=== PATIENT | male | born 1930 | race Caucasian/White ===

== ENCOUNTER 2018-02-27 11:59 | Emergency (ER) | payer OTHER ==
[2018-02-27] MEDS ORDERED: HYDROCODONE/APAP 7.5/325 MG TAB ONE (12:40)
--- NOTE | 2018-02-27 14:34 | EDPHYS ---
Physician Documentation [facility] Name: Yash Mcnulty Age: 87 yrs Sex: Male : 1930 Arrival Date: 02/27/2018 Time: 11:59 Bed 6 Private MD: ED Physician Myles Oviedo HPI: 02/27 14:32 This 87 yrs old Male presents to ER via EMS with complaints of Knee Pain. pm1 14:32 The patient presents with pain, swelling. The complaints affect the right knee. pm1 Context: The problem was sustained at home, resulted from the patient tripping, on a floor edge, the patient can fully bear weight, the patient is able to ambulate, Problem is a result from a previous injury: No. Onset: The symptoms/episode began/occurred last night. Modifying factors: The symptoms are alleviated by nothing. the symptoms are aggravated by weight bearing. Associated signs and symptoms: Pertinent positives: swelling, Pertinent negatives calf tenderness, fever. Treatment prior to arrival includes: no previous treatment. The patient has not experienced similar symptoms in the past. The patient has not recently seen a physician. Patient was walking out the garage and tripped on the edge of the garage. Patient landed on his right knee. No headache, head injury, neck pain. Patient injury happened last night as him and his were going out to dance. Patient was able to go out and danced four dances with his last night. Patient woke up and his right knee was swollen and painful. Historical: - Allergies: 12:02 No Known Allergies; sg - Home Meds: 12:03 levothyroxine 50 mcg oral tab once daily [Active]; amiodarone 200 mg Oral tab 1 tab sv once daily [Active]; Lasix 20 mg Oral tab 1 tab once daily [Active]; galantamine 12 mg Oral tab 1 tab 2 times per day [Active]; Namenda XR 28 mg Oral CSpX 1 cap once daily [Active]; pravastatin 40 mg Oral tab 1 tab once daily [Active]; Hemocyte oral oral [Active]; Xarelto 20 mg oral tab 1 tab once daily [Active]; Centrum Silver oral oral [Active]; vitamin P64-sgrxz acid oral oral [Active]; Ocuvite oral oral [Active]; - PMHx: 12:02 CAD; Atrial Fib; Dementia; Depression; High Cholesterol; Hypothyroidism; sg - PSHx: 12:02 Hernia repair; right ankle surg; sg - Immunization history:: Adult Immunizations up to date, Adult Immunizations up to date. - Social history:: Smoking status: Patient/guardian denies using tobacco, Smoking status: Patient/guardian denies using tobacco. - Ebola Screening: : Patient negative for fever greater than or equal to 101.5 degrees Fahrenheit, and additional compatible Ebola Virus Disease symptoms Patient denies exposure to infectious person Patient denies travel to an Ebola-affected area in the 21 days before illness onset No symptoms or risks identified at this time. ROS: 14:32 Constitutional: Negative for fever, chills, and weight loss, Eyes: Negative for injury, pm1 pain, redness, and discharge, ENT: Negative for injury, pain, and discharge, Neck: Negative for injury, pain, and swelling, Cardiovascular: Negative for chest pain, palpitations, and edema, Respiratory: Negative for shortness of breath, cough, wheezing, and pleuritic chest pain, Abdomen/GI: Negative for abdominal pain, nausea, vomiting, diarrhea, and constipation, Back: Negative for injury and pain, : Negative for injury, bleeding, discharge, and swelling. 14:32 Skin: Negative for injury, rash, and discoloration. 14:32 Neuro: Negative for headache, weakness, numbness, tingling, and seizure. 14:32 MS/extremity: Positive for pain, swelling, of the right knee. Exam: 14:32 Constitutional: This is a well developed, well nourished patient who is awake, alert, pm1 and in no acute distress. Head/Face: Normocephalic, atraumatic. Eyes: Pupils equal round and reactive to light, extra-ocular motions intact. Lids and lashes normal. Conjunctiva and sclera are non-icteric and not injected. Cornea within normal limits. Periorbital areas with no swelling, redness, or edema. ENT: Nares patent. No nasal discharge, no septal abnormalities noted. Tympanic membranes are normal and external auditory canals are clear. Oropharynx with no redness, swelling, or masses, exudates, or evidence of obstruction, uvula midline. Mucous membranes moist. Neck: Trachea midline, no thyromegaly or masses palpated, and no cervical lymphadenopathy. Supple, full range of motion without nuchal rigidity, or vertebral point tenderness. No Meningismus. Chest/axilla: Normal chest wall appearance and motion. Nontender with no deformity. No lesions are appreciated. Cardiovascular: Regular rate and rhythm with a normal S1 and S2. No gallops, murmurs, or rubs. Normal PMI, no JVD. No pulse deficits. Respiratory: Lungs have equal breath sounds bilaterally, clear to auscultation and percussion. No rales, rhonchi or wheezes noted. No increased work of breathing, no retractions or nasal flaring. Abdomen/GI: Soft, non-tender, with normal bowel sounds. No distension or tympany. No guarding or rebound. No evidence of tenderness throughout. Back: No spinal tenderness. No costovertebral tenderness. Full range of motion. Skin: Warm, dry with normal turgor. Normal color with no rashes, no lesions, and no evidence of cellulitis. 14:32 Musculoskeletal/extremity: Extremities: grossly normal except: noted in the right knee: swelling, tenderness, Pulses: are normal with no appreciated deficits. Vital Signs: 12:00 BP 119 / 101; Pulse 84; Resp 16; Temp 98.6; Pulse Ox 95% ; sv 12:58 BP 153 / 86; Pulse 86; Resp 16; Pulse Ox 96% ; sv 13:59 BP 137 / 86; Pulse 80; Resp 18; Pulse Ox 94% ; sv MDM: 12:04 Patient medically screened. pm1 14:32 Data reviewed: vital signs. Counseling: I had a detailed discussion with the patient pm1 and/or guardian regarding: the historical points, exam findings, and any diagnostic results supporting the discharge/admit diagnosis, radiology results, the need for outpatient follow up, a orthopedic surgeon, to return to the emergency department if symptoms worsen or persist or if there are any questions or concerns that arise at home. 02/27 12:11 Order name: Knee Right 3 View XRAY pm1 02/27 12:11 Order name: Ice pack; Complete Time: 12:28 pm1 02/27 14:35 Order name: Del Wrap; Complete Time: 14:52 pm1 Administered Medications: 12:42 Drug: [place] 5 mg-325 mg 1 tabs Route: PO; sg 12:58 Follow up: Response: No adverse reaction sv Disposition: 02/28 12:15 Co-signature as Attending Physician, Myles Oviedo MD I agree with the assessment and josi plan of care. Disposition: 02/27/18 14:33 Discharged to Home. Impression: Pain in right knee, Contusion of right knee. - Condition is Stable. - Discharge Instructions: Knee Pain. - Prescriptions for Tylenol- Codeine #3 300-30 mg Oral Tablet - take 1 tablet by ORAL route every 6 hours As needed; 15 tablet. - Medication Reconciliation Form, Thank You Letter, Prescription Opioid Use form. - Follow up: Emergency Department; When: As needed; Reason: Worsening of condition. Follow up: Garret Chavez MD; When: 5 - 6 days; Reason: Recheck today's complaints, Continuance of care, Re-evaluation by your physician. - Problem is new. - Symptoms have improved. Signatures: Dispatcher [employer] Chantelle Merchant RN RN sv Gay, Steven, RN RN sg Anderson, Corey, MD MD cha Marinas, Patrick, ACCOUNT RECEIVABLE ASSOCIATE ACCOUNT RECEIVABLE ASSOCIATE pm1 Corrections: (The following items were deleted from the chart) 02/27 14:53 14:33 02/27/2018 14:33 Discharged to Home. Impression: Pain in right knee; Contusion of sv right knee. Condition is Stable. Forms are Medication Reconciliation Form, Thank You Letter, Antibiotic Education, Prescription Opioid Use. Follow up: Emergency Department; When: As needed; Reason: Worsening of condition. Follow up: Garret Chavez; When: 5 - 6 days; Reason: Recheck today's complaints, Continuance of care, Re-evaluation by your physician. Problem is new. Symptoms have improved. pm1
--- NOTE | 2018-02-27 14:34 | ER ---
Nurse's Notes [facility] Name: Yash Mcnulty Age: 87 yrs Sex: Male : 1930 Arrival Date: 02/27/2018 Time: 11:59 Bed 6 Private MD: Diagnosis: Pain in right knee;Contusion of right knee Presentation: 02/27 11:59 Presenting complaint: EMS states: pt fell at his home last night after dancing. pt c/o sg R knee pain and skin tear to right elbow, pt denies hitting head, reports falling and able to catch himself but his right knee did hit the ground. Transition of care: patient was not received from another setting of care. Onset of symptoms was February 27, 2018. Risk Assessment: Do you want to hurt yourself or someone else? Patient reports no desire to harm self or others. Initial Sepsis Screen: Does the patient meet any 2 criteria? No. Patient's initial sepsis screen is negative. Does the patient have a suspected source of infection? No. Patient's initial sepsis screen is negative. Care prior to arrival: None. 11:59 Method Of Arrival: EMS: [facility] sg 11:59 Acuity: HAYDE 4 sg Triage Assessment: 12:04 General: Appears in no apparent distress. uncomfortable, slender, Behavior is calm, sv cooperative, appropriate for age. Pain: Complains of pain in right knee Pain currently is 5 out of 10 on a pain scale. Is intermittent. Neuro: Level of Consciousness is awake, alert, obeys commands, Oriented to person, place, time, situation, Moves all extremities. Respiratory: Respiratory effort is even, unlabored, Respiratory pattern is regular, symmetrical. Derm: Skin is pink, warm \T\ dry. Musculoskeletal: Range of motion: intact in all extremities, Swelling present in right knee. Historical: - Allergies: 12:02 No Known Allergies; sg - Home Meds: 12:03 levothyroxine 50 mcg oral tab once daily [Active]; amiodarone 200 mg Oral tab 1 tab sv once daily [Active]; Lasix 20 mg Oral tab 1 tab once daily [Active]; galantamine 12 mg Oral tab 1 tab 2 times per day [Active]; Namenda XR 28 mg Oral CSpX 1 cap once daily [Active]; pravastatin 40 mg Oral tab 1 tab once daily [Active]; Hemocyte oral oral [Active]; Xarelto 20 mg oral tab 1 tab once daily [Active]; Centrum Silver oral oral [Active]; vitamin A74-oegqf acid oral oral [Active]; Ocuvite oral oral [Active]; - PMHx: 12:02 CAD; Atrial Fib; Dementia; Depression; High Cholesterol; Hypothyroidism; sg - PSHx: 12:02 Hernia repair; right ankle surg; sg - Immunization history:: Adult Immunizations up to date, Adult Immunizations up to date. - Social history:: Smoking status: Patient/guardian denies using tobacco, Smoking status: Patient/guardian denies using tobacco. - Ebola Screening: : Patient negative for fever greater than or equal to 101.5 degrees Fahrenheit, and additional compatible Ebola Virus Disease symptoms Patient denies exposure to infectious person Patient denies travel to an Ebola-affected area in the 21 days before illness onset No symptoms or risks identified at this time. Screenin:00 Abuse screen: Denies threats or abuse. Denies injuries from another. Nutritional sv screening: No deficits noted. Tuberculosis screening: No symptoms or risk factors identified. Fall Risk None identified. Assessment: 12:05 Reassessment: Patient appears in no apparent distress at this time. No changes from sv previously documented assessment. 12:58 Reassessment: Patient appears in no apparent distress at this time. No changes from sv previously documented assessment. Patient and/or family updated on plan of care and expected duration. Pain level reassessed. Patient is alert, oriented x 3, equal unlabored respirations, skin warm/dry/pink. 14:53 Reassessment: Patient appears in no apparent distress at this time. No changes from sv previously documented assessment. Patient and/or family updated on plan of care and expected duration. Pain level reassessed. Patient is alert, oriented x 3, equal unlabored respirations, skin warm/dry/pink. Vital Signs: 12:00 BP 119 / 101; Pulse 84; Resp 16; Temp 98.6; Pulse Ox 95% ; sv 12:58 BP 153 / 86; Pulse 86; Resp 16; Pulse Ox 96% ; sv 13:59 BP 137 / 86; Pulse 80; Resp 18; Pulse Ox 94% ; sv ED Course: 11:59 Patient arrived in ED. sg 11:59 Chantelle Hurd, RN is Primary Nurse. sv 12:00 Arm band placed on left wrist. sv 12:00 Patient has correct armband on for positive identification. Bed in low position. Side sv rails up X2. Pulse ox on. NIBP on. Door closed. Head of bed elevated. 12:01 Triage completed. sg 12:02 Lev Rudolph NP is PHCP. pm1 12:02 Myles Oviedo MD is Attending Physician. pm1 13:13 Knee Right 3 View XRAY In Process Unspecified. EDMS 14:33 Garret Chavez MD is Referral Physician. pm1 14:50 Del wrap to right knee. sv 14:52 No provider procedures requiring assistance completed. Patient did not have IV access sv during this emergency room visit. Administered Medications: 12:42 Drug: [place] 5 mg-325 mg 1 tabs Route: PO; sg 12:58 Follow up: Response: No adverse reaction sv Outcome: 14:33 Discharge ordered by MD. pm1 14:53 Discharged to home via wheelchair, with family. sv 14:53 Condition: stable 14:53 Discharge instructions given to patient, family, Instructed on discharge instructions, follow up and referral plans. medication usage, Demonstrated understanding of instructions, follow-up care, medications, Prescriptions given X 1. 14:53 Patient left the ED. sv Signatures: Dispatcher [employer] EDND Chantelle Hurd RN RN sv Gay, Steven, RN RN Lev Rudolph NP HOME DELIVERY DRIVER pm1 Corrections: (The following items were deleted from the chart) 12:07 12:00 Pulse 84bpm; Resp 16bpm; Pulse Ox 95%; Temp 98.6F; sv sv
[2018-02-27 15:31] VITALS: TEMP 98.6
[2018-02-27 15:33] VITALS: BP 137/86; O2SAT 94
--- NOTE | 2018-02-28 12:47 | RAD REPORT ---
EXAM DESCRIPTION: RAD - Knee Right 3 View - 02/27/2018 11:29 pm CLINICAL HISTORY: Knee pain and swelling COMPARISON: April 2016 FINDINGS: No fracture, dislocation or periosteal reaction.Small a moderate joint effusion is present . Slight depression of the medial tibial plateau is suspected to be from old trauma. Comparison views are quite equivalent. There is remodeling in the proximal tibia metaphysis that is probably old trau ma change. This is stable. No foreign body or other soft tissue abnormality. IMPRESSION: No gross fracture deformity seen. Joint fluid is present and there is slight depression of the medial tibial plateau. Plateau finding i s suspected to be chronic. Correlation is needed with mechanism of injury and symptom pattern. Follow-up MR imaging could be uti lized to assess for tibial plateau fracture or other occult bone process.
== END 2018-02-27 14:53 | disposition home or self-care (01) ==
LOC: ER 11:59
DX: S80.01XA Contusion of right knee, initial encounter (principal); W01.0XXA Fall on same level from slipping, tripping and stumbling without subsequent striking against object, initial encounter; Y93.41 Activity, dancing; Y92.019 Unspecified place in single-family (private) house as the place of occurrence of the external cause; F03.90 Unspecified dementia, unspecified severity, without behavioral disturbance, psychotic disturbance, mood disturbance, and anxiety; F41.9 Anxiety disorder, unspecified; F32.9 Major depressive disorder, single episode, unspecified; E03.9 Hypothyroidism, unspecified; E78.00 Pure hypercholesterolemia, unspecified; I25.10 Atherosclerotic heart disease of native coronary artery without angina pectoris
CPT/HCPCS: 99284

== ENCOUNTER 2019-04-05 16:22 | Inpatient (IN) | payer OTHER ==
[2019-04-05] MEDS ORDERED: LEVALBUTEROL 1.25 MG/3 ML NEB ONE (17:09)
--- NOTE | 2019-04-05 17:41 | EKG ---
Test Date: 2019-04-05 Test Time: 16:34:12 Machine Tool Operator: MICHELET MEASUREMENT RESULTS: Intervals: Rate: 87 IN: QRSD: 94 QT: 400 QTc: 481 [place]: P: IN: QRS: 9 T: 77 INTERPRETIVE STATEMENTS: Atrial fibrillation Nonspecific ST and T wave abnormality Prolonged QT Abnormal ECG Compared to ECG 04/06/2016 05:38:06 ST (T wave) deviation now present Left-axis deviation no longer present Electronically Signed On 04-05-19 17:41:11 CDT by Jose Dawkins
[2019-04-05 17:43] LABS: Basophils % 0.4 % (0-1.3); Hematocrit 38.8 % (39.6-49.0); Lymphocytes % 15.5 % (15.3-44.8); MPV 10.4 fL (7.6-11.3); RBC Red Blood Cell Count 4.38 M/uL (4.33-5.43)
[2019-04-05 17:44] LABS: Protime INR 1.35
--- NOTE | 2019-04-05 17:56 | RAD REPORT ---
EXAM DESCRIPTION: RAD - Chest Single View - 04/05/2019 5:46 pm CLINICAL HISTORY: SOB Chest pain. COMPARISON: Chest Single View dated 04/06/2016; Chest Single View dated 04/05/2016; CHEST SINGLE VIE W dated 05/20/2015; CHEST SINGLE VIEW dated 05/25/2014 FINDINGS: Portable technique limits examination quality. Moderate opacity is present in the right lung base likely a combination of pneumonia and pleural flui d. Mild interstitial pulmonary edema is present. The heart is moderately enlarged. No displaced fract ures.
[2019-04-05 18:05] LABS: Albumin 3.4 g/dL (3.4-5.0); Bilirubin Direct 0.3 mg/dL (0-0.2); Magnesium 2.4 mg/dL (1.8-2.4); Protein, Total 7.1 g/dL (6.4-8.2); Troponin (Emerg Dept Use Only) 0.03 ng/mL (0.0-0.045)
--- NOTE | 2019-04-05 18:22 | EDPHYS ---
Physician Documentation [facility] Name: Yash Mcnulty Age: 88 yrs Sex: Male : 1930 Arrival Date: 04/05/2019 Time: 16:30 Bed 16 Private MD: ED Physician Myles Oivedo HPI: 04/05 16:57 This 88 yrs old Male presents to ER via EMS with complaints of High Blood cp Pressure, Hypoxia. 17:00 The patient has shortness of breath at rest. Onset: The symptoms/episode began/occurred cp today. 17:00 Duration: The symptoms are continuous, but are steadily getting better. Associated cp signs and symptoms: Pertinent positives: elevated blood pressure, Pertinent negatives: chest pain, productive cough, diaphoresis, fever. Severity of symptoms: in the emergency department the symptoms have improved mildly. Historical: - Allergies: 16:30 No Known Allergies; rb1 - Home Meds: 16:30 Centrum Silver Oral [Active]; galantamine 12 mg Oral tab 1 tab 2 times per day rb1 [Active]; Hemocyte Oral [Active]; Lasix 20 mg Oral tab 1 tab once daily [Active]; Namenda XR 28 mg Oral CSpX 1 cap once daily [Active]; Ocuvite Oral [Active]; vitamin P32-rmrgk acid Oral [Active]; Xarelto 20 mg Oral tab 1 tab once daily [Active]; 16:30 levothyroxine 75 mcg oral tab [Active]; pravastatin 80 mg oral tab [Active]; metoprolol rb1 tartrate 25 mg Oral tab 1 tab 2 times per day [Active]; - PMHx: 16:30 Atrial Fib; CAD; Dementia; Depression; High Cholesterol; Hypothyroidism; rb1 - PSHx: 16:30 Hernia repair; right ankle surg; rb1 - Immunization history:: Adult Immunizations up to date. - Social history:: Smoking status: Patient/guardian denies using tobacco. - Ebola Screening: : Patient negative for fever greater than or equal to 101.5 degrees Fahrenheit, and additional compatible Ebola Virus Disease symptoms. ROS: 17:05 Constitutional: Negative for body aches, chills, fever, poor PO intake. cp 17:05 Eyes: Negative for injury, pain, redness, and discharge. cp 17:05 ENT: Negative for drainage from ear(s), ear pain, sore throat, difficulty swallowing, difficulty handling secretions. 17:05 Cardiovascular: Negative for chest pain, edema, palpitations. 17:05 Respiratory: Positive for shortness of breath, at rest. Negative for cough, wheezing. 17:05 Abdomen/GI: Negative for abdominal pain, vomiting, diarrhea, constipation, black/tarry stool, rectal bleeding. 17:05 Back: Negative for pain at rest, pain with movement. 17:05 Skin: Negative for rash. 17:05 Neuro: Negative for altered mental status, headache, weakness. 17:05 All other systems are negative. Exam: 16:55 ECG was reviewed by the Attending Physician. cp 17:10 Constitutional: The patient appears in no acute distress, alert, awake, cp non-diaphoretic, well developed, well nourished. 17:10 Head/Face: Normocephalic, atraumatic. cp 17:10 Eyes: Periorbital structures: appear normal, Pupils: equal, round, and reactive to cp light and accomodation, Extraocular movements: intact throughout, Conjunctiva: normal, no exudate, no injection, Sclera: no appreciated abnormality, Lids and lashes: appear normal, bilaterally. 17:10 ENT: External ear(s): are unremarkable, Ear canal(s): are normal, clear, TM's: are normal, no evidence of bulging, no erythema, Nose: is normal, Mouth: Lips: moist, Oral mucosa: pink and intact, moist, Posterior pharynx: is normal, airway is patent, no erythema, no exudate. 17:10 Neck: ROM/movement: is normal, is supple, without pain, no range of motions limitations, no meningismus, no nuchal rigidity. 17:10 Chest/axilla: Inspection: normal, Palpation: is normal, no crepitus, no tenderness. 17:10 Cardiovascular: Rate: tachycardic, Rhythm: irregularly irregular, Edema: is not appreciated, JVD: is not appreciated. 17:10 Respiratory: the patient does not display signs of respiratory distress, Respirations: normal, no use of accessory muscles, no retractions, no splinting, no tachypnea, Breath sounds: decreased breath sounds, that are mild, are located in both bases, stridor, is not appreciated. 17:10 Abdomen/GI: Inspection: abdomen appears normal, Bowel sounds: active, all quadrants, Palpation: abdomen is soft and non-tender, in all quadrants, rebound tenderness, is not appreciated, voluntary guarding, is not appreciated. 17:10 Back: pain, is absent. 17:10 Skin: no rash present. 17:10 Neuro: Orientation: to person, situation, Mentation: is normal, Cerebellar function: is grossly normal, Motor: moves all fours, strength is normal, Sensation: is normal. Vital Signs: 16:30 BP 180 / 90; Pulse 100; Resp 19; Temp 97.0(TE); Pulse Ox 95% on 2 lpm NC; Weight 77.11 rb1 kg (R); Height 6 ft. 2 in. (187.96 cm) (R); Pain 0/10; 17:30 BP 159 / 100; Pulse 89; Resp 18; Pulse Ox 100% on R/A; Pain 0/10; rb1 18:27 BP 159 / 104; Pulse 110; Resp 24; Pulse Ox 99% on 2 lpm NC; rb1 19:29 BP 154 / 109; Pulse 116; Resp 20 S; Pulse Ox 94% on 2 lpm NC; jd3 20:55 BP 139 / 91; Pulse 101; Resp 20 S; Pulse Ox 94% on 2 lpm NC; Pain 0/10; jd3 16:30 Body Mass Index 21.83 (77.11 kg, 187.96 cm) rb1 MDM: 16:44 Patient medically screened. josi 18:19 Physician consultation: A Jessy BARNEY was contacted at 18:15, regarding admission, to the telemetry unit. patient's condition, in the emergency department to see patient at 18:20. 18:20 Data reviewed: vital signs, nurses notes, lab test result(s), EKG, radiologic studies, cp plain films. 18:20 Differential diagnosis: Bronchitis CHF exacerbation, Chronic Obstructive Pulmonary cp Disease Myocardial Infarction pneumonia, Pneumothorax Sepsis. Antibiotic administration: Zosyn. Test interpretation: by ED physician or midlevel provider: ECG, plain radiologic studies. 04/05 16:55 Order name: Basic Metabolic Panel; Complete Time: 18:10 cp 04/05 18:11 Interpretation: Normal except: CL 109; BUN 21; GFR 63. 04/05 16:55 Order name: CBC with Diff; Complete Time: 17:59 cp 04/05 17:59 Interpretation: Normal except: HGB 13.1; HCT 38.8; MCV 88.6; MCH 29.9; RANDY% 75.0. 04/05 16:55 Order name: LFT's; Complete Time: 18:10 04/05 18:11 Interpretation: Normal except: ALK 151; BILID 0.3; GLOB 3.7; A/G 0.9. 04/05 16:55 Order name: Magnesium; Complete Time: 18:10 04/05 16:55 Order name: NT PRO-BNP; Complete Time: 18:10 04/05 18:11 Interpretation: Within normal limits: NT PRO-BNP 9061. 04/05 16:55 Order name: PT-INR; Complete Time: 17:59 04/05 16:55 Order name: Troponin (emerg Dept Use Only); Complete Time: 18:10 04/05 16:55 Order name: Influenza Screen (a \T\ B); Complete Time: 18:10 04/05 18:11 Interpretation: Reviewed. 04/05 16:55 Order name: Urine Microscopic Only 04/05 18:29 Order name: Basic Metabolic Panel EDMS 04/05 18:29 Order name: Basic Metabolic Panel EDMS 04/05 18:29 Order name: CBC with Automated Diff EDMS 04/05 18:29 Order name: CBC with Automated Diff EDMS 04/05 18:29 Order name: NT PRO-BNP EDMS 04/05 16:55 Order name: XRAY Chest (1 view); Complete Time: 17:59 04/05 16:55 Order name: EKG; Complete Time: 16:56 04/05 16:55 Order name: Cardiac monitoring; Complete Time: 17:07 04/05 16:55 Order name: EKG - Nurse/Tech; Complete Time: 17:07 04/05 16:55 Order name: IV Saline Lock; Complete Time: 17:31 04/05 16:55 Order name: Labs collected and sent; Complete Time: 17:31 04/05 18:29 Order name: Regular EDMS 04/05 18:29 Order name: NT PRO-BNP EDMS 04/05 18:29 Order name: Troponin I EDMS 04/05 18:29 Order name: Troponin I EDMS 04/05 18:29 Order name: Troponin I EDMS 04/05 20:16 Order name: Urine Dipstick--Ancillary (enter results) ds4 04/05 20:40 Order name: Urine Dipstick-Ancillary EDMS 04/05 16:55 Order name: O2 Per Protocol; Complete Time: 17:07 cp 04/05 16:55 Order name: O2 Sat Monitoring; Complete Time: 17:07 cp 04/05 16:55 Order name: Urine Dipstick-Ancillary (obtain specimen); Complete Time: 20:15 cp EC:55 Rate is 87 beats/min. Rhythm is irregularly irregular. QRS interval is normal. QT cp interval is normal. T waves are Inverted in lead aVL. Interpreted by me. Reviewed by me. Administered Medications: 17:25 Drug: Xopenex (3) 1.25 mg Route: Inhalation; rb1 18:42 Drug: Lasix 20 mg Route: IVP; Site: left antecubital; tw2 18:50 Follow up: Response: No adverse reaction tw2 18:49 Drug: Zosyn 3.375 grams Route: IVPB; Infused Over: 60 mins; Site: left antecubital; tw2 20:58 Follow up: Response: No adverse reaction; IV Status: Completed infusion jd3 Disposition: 04/06 06:58 Co-signature as Attending Physician, Myles Oviedo MD I agree with the assessment and [facility] plan of care. Disposition: 04/05/19 18:21 Hospitalization ordered by Rayray Jiménez for Inpatient Admission. Preliminary diagnosis are Pneumonia due to other specified bacteria, Pulmonary edema. - Bed requested for Telemetry/MedSurg (Inpatient). - Status is Inpatient Admission. jd3 - Condition is Stable. - Problem is new. - Symptoms have improved. UTI on Admission? No Signatures: Dispatcher [employer] EDMS Gemma Frost Corey, MD MD cha Page, Corey, PA PA cp Jessica Baeza, RN RN rb1 Merry Ha RN RN tw2 Blu Lin RN RN jd3 Corrections: (The following items were deleted from the chart) 04/05 18: 16:30 Allergies: No Known Allergies; rb1 rb1 18: 16:30 Home Meds: amiodarone 200 mg Oral tab 1 tab once daily; rb1 rb1 18: 16:30 Home Meds: Aspir-81 81 mg Oral TbEC 1 tab once daily; rb1 rb1 18: 16:30 Home Meds: levothyroxine 50 mcg tab once daily; rb1 rb1 18 16:30 Home Meds: pravastatin 40 mg Oral tab 1 tab once daily; rb1 rb1 18 16:30 Home Meds: sertraline 100 mg Oral tab 1 tab once daily; rb1 rb1 18:44 18:21 Hospitalization Ordered by A Jessy BARNEY for Inpatient Admission. Preliminary bd diagnosis is Pneumonia due to other specified bacteria; Pulmonary edema. Bed requested for Telemetry/MedSurg (Inpatient). Status is Inpatient Admission. Condition is Stable. Problem is new. Symptoms have improved. UTI on Admission? No. cp 21:36 18:44 04/05/2019 18:21 Hospitalization Ordered by A Jessy BARNEY for Inpatient Admission. jd3 Preliminary diagnosis is Pneumonia due to other specified bacteria; Pulmonary edema. Bed requested for Telemetry/MedSurg (Inpatient). Status is Inpatient Admission. Condition is Stable. Problem is new. Symptoms have improved. UTI on Admission? No. bd
--- NOTE | 2019-04-05 18:22 | ER ---
Nurse's Notes [facility] Name: Yash Mcnulty Age: 88 yrs Sex: Male : 1930 Arrival Date: 04/05/2019 Time: 16:30 Bed 16 Private MD: Diagnosis: Pneumonia due to other specified bacteria;Pulmonary edema Presentation: 04/05 16:30 Presenting complaint: EMS states: Pt. is A \T\ O x 4, c/o hypertension. Hypoxic on RA rb1 90%, 2 L NC 97-98%. Difficulty breathing last night. held thyroid medication today. 12-Lead showed abnormal wandering baseline, has history of A-Fib. Denies pain. S1S2 are heard, radial pulses are strong. BS 101. Transition of care: patient was not received from another setting of care. Onset of symptoms was April 04, 2019. Risk Assessment: Do you want to hurt yourself or someone else? Patient reports no desire to harm self or others. Initial Sepsis Screen: Does the patient meet any 2 criteria? No. Patient's initial sepsis screen is negative. Does the patient have a suspected source of infection? No. Patient's initial sepsis screen is negative. Care prior to arrival: None. 16:30 Method Of Arrival: EMS: [facility] rb1 16:30 Acuity: HAYDE 3 rb1 Triage Assessment: 16:30 General: Appears in no apparent distress. comfortable, Behavior is calm, cooperative, rb1 Denies fever, feeling ill. Pain: Denies pain. Neuro: Level of Consciousness is awake, alert, obeys commands, Oriented to person, place, time, situation. Cardiovascular: Capillary refill < 3 seconds is brisk in bilateral fingers. Respiratory: Reports shortness of breath since yesterday Airway is patent Respiratory effort is even, unlabored, Respiratory pattern is regular, symmetrical. Respiratory: Denies cough. GI: No signs and/or symptoms were reported involving the gastrointestinal system. : No signs and/or symptoms were reported regarding the genitourinary system. Derm: Skin is pink, warm \T\ dry. Historical: - Allergies: 16:30 No Known Allergies; rb1 - Home Meds: 16:30 Centrum Silver Oral [Active]; galantamine 12 mg Oral tab 1 tab 2 times per day rb1 [Active]; Hemocyte Oral [Active]; Lasix 20 mg Oral tab 1 tab once daily [Active]; Namenda XR 28 mg Oral CSpX 1 cap once daily [Active]; Ocuvite Oral [Active]; vitamin X85-jvufg acid Oral [Active]; Xarelto 20 mg Oral tab 1 tab once daily [Active]; 16:30 levothyroxine 75 mcg oral tab [Active]; pravastatin 80 mg oral tab [Active]; metoprolol rb1 tartrate 25 mg Oral tab 1 tab 2 times per day [Active]; - PMHx: 16:30 Atrial Fib; CAD; Dementia; Depression; High Cholesterol; Hypothyroidism; rb1 - PSHx: 16:30 Hernia repair; right ankle surg; rb1 - Immunization history:: Adult Immunizations up to date. - Social history:: Smoking status: Patient/guardian denies using tobacco. - Ebola Screening: : Patient negative for fever greater than or equal to 101.5 degrees Fahrenheit, and additional compatible Ebola Virus Disease symptoms. Screenin:30 Abuse screen: Denies threats or abuse. Nutritional screening: No deficits noted. rb1 Tuberculosis screening: No symptoms or risk factors identified. Fall Risk None identified. Assessment: 16:30 General: See triage assessment. rb1 17:30 Reassessment: Patient appears in no apparent distress at this time. No changes from rb1 previously documented assessment. 18:28 Reassessment: Patient appears in no apparent distress at this time. Patient and/or rb1 family updated on plan of care and expected duration. Pain level reassessed. Patient is alert, oriented x 3, equal unlabored respirations, skin warm/dry/pink. Patient denies pain at this time. 19:30 General: Appears in no apparent distress. comfortable, Behavior is calm, cooperative, jd3 appropriate for age. Pain: Denies pain. Neuro: Level of Consciousness is awake, alert, obeys commands, Oriented to person, place, time, situation. Cardiovascular: Capillary refill < 3 seconds Patient's skin is warm and dry. Respiratory: Airway is patent Respiratory effort is even, unlabored, Respiratory pattern is regular, symmetrical. GI: No signs and/or symptoms were reported involving the gastrointestinal system. : No signs and/or symptoms were reported regarding the genitourinary system. EENT: No signs and/or symptoms were reported regarding the EENT system. Derm: Skin is intact, Skin is dry, Skin is normal, Skin temperature is warm. Musculoskeletal: Circulation, motion, and sensation intact. Range of motion: intact in all extremities. 20:54 Reassessment: Patient appears in no apparent distress at this time. Patient and/or jd3 family updated on plan of care and expected duration. Pain level reassessed. Patient is alert, oriented x 3, equal unlabored respirations, skin warm/dry/pink. report given to Mai CODY. Vital Signs: 16:30 BP 180 / 90; Pulse 100; Resp 19; Temp 97.0(TE); Pulse Ox 95% on 2 lpm NC; Weight 77.11 rb1 kg (R); Height 6 ft. 2 in. (187.96 cm) (R); Pain 0/10; 17:30 BP 159 / 100; Pulse 89; Resp 18; Pulse Ox 100% on R/A; Pain 0/10; rb1 18:27 BP 159 / 104; Pulse 110; Resp 24; Pulse Ox 99% on 2 lpm NC; rb1 19:29 BP 154 / 109; Pulse 116; Resp 20 S; Pulse Ox 94% on 2 lpm NC; jd3 20:55 BP 139 / 91; Pulse 101; Resp 20 S; Pulse Ox 94% on 2 lpm NC; Pain 0/10; jd3 16:30 Body Mass Index 21.83 (77.11 kg, 187.96 cm) rb1 ED Course: 16:30 Patient arrived in ED. rb1 16:30 Arm band placed on left wrist. rb1 16:30 Patient has correct armband on for positive identification. Bed in low position. Call rb1 light in reach. Side rails up X2. youth nutritional monitor on. Pulse ox on. NIBP on. Warm blanket given. 16:34 Triage completed. rb1 16:42 EKG done, by lead neurodiagnostic technologist. reviewed by Myles Oviedo MD. sm3 16:44 Myles Adame PA is PHCP. cp 16:44 Myles Oviedo MD is Attending Physician. cp 17:06 Jessica Baeza, GLO is Primary Nurse. rb1 17:30 Inserted saline lock: 22 gauge in left antecubital area, using aseptic technique. Blood rb1 collected. 17:31 Influenza Screen (a \T\ B) Sent. rb1 17:45 XRAY Chest (1 view) In Process Unspecified. EDMS 18:20 Rayray Jiménez MD is Hospitalizing Provider. cp 19:00 Report given to GLO Bowman. rb1 19:12 Troponin I Sent. ds4 19:12 Troponin I Sent. ds4 20:15 Urine Microscopic Only Sent. ds4 20:28 Primary Nurse role handed off by Jessica Baeza, GLO jd3 20:28 Blu Lin, RN is Primary Nurse. jd3 20:56 No provider procedures requiring assistance completed. Patient admitted, IV remains in jd3 place. Administered Medications: 17:25 Drug: Xopenex (3) 1.25 mg Route: Inhalation; rb1 18:42 Drug: Lasix 20 mg Route: IVP; Site: left antecubital; tw2 18:50 Follow up: Response: No adverse reaction tw2 18:49 Drug: Zosyn 3.375 grams Route: IVPB; Infused Over: 60 mins; Site: left antecubital; tw2 20:58 Follow up: Response: No adverse reaction; IV Status: Completed infusion jd3 Outcome: 18:21 Decision to Hospitalize by Provider. cp 20:56 Admitted to Tele accompanied by tech, via stretcher, room 209, with oxygen, with chart, jd3 Report called to Mai CODY 20:56 Condition: stable 20:56 Instructed on the need for admit, Demonstrated understanding of instructions. 21:36 Patient left the ED. jd3 Signatures: Dispatcher [employer] EDMS Antonio Guo ds4 Myles Adame PA PA cp Jessica Baeza, RN RN rb1 Merry Ha RN RN tw2 Blu Lin RN RN jd3 Phoebe Arias 3 Corrections: (The following items were deleted from the chart) 18: 16:30 Allergies: No Known Allergies; rb1 rb1 18: 16:30 Home Meds: amiodarone 200 mg Oral tab 1 tab once daily; rb1 rb1 18: 16:30 Home Meds: Aspir-81 81 mg Oral TbEC 1 tab once daily; rb1 rb1 18: 16:30 Home Meds: levothyroxine 50 mcg tab once daily; rb1 rb1 18: 16:30 Home Meds: pravastatin 40 mg Oral tab 1 tab once daily; rb1 rb1 18: 16:30 Home Meds: sertraline 100 mg Oral tab 1 tab once daily; rb1 rb1
[2019-04-05] MEDS ORDERED: ONDANSETRON 4 MG/2 ML VIAL IV PRN (18:26)
[2019-04-05] MEDS ORDERED: ACETAMINOPHEN 500 MG TAB PO PRN (18:26)
[2019-04-05] MEDS ORDERED: PIPER/TAZO/NS 3.375gm 3.375 GM/100 ML BAG ONE (18:34)
[2019-04-05] MEDS ORDERED: FUROSEMIDE 20 MG/ 2ML VIAL ONE (18:34)
[2019-04-05] MEDS: ALBUTEROL 2.5 MG/3 ML NEB SOL NEB SCH (20:00)
[2019-04-05 20:40] LABS: Urine Bacteria <20 /HPF (NONE SEEN); Urine Culture Reflex Order NOT NEEDED; Urine RBC <5 /HPF (NONE SEEN)
[2019-04-05 20:40] LABS: Urine Blood NEGATIVE (NEG); Urine Glucose NEGATIVE (NEG); Urine Protein NEGATIVE (NEG)
[2019-04-05] MEDS: METOPROLOL XL 25 MG TAB PO SCH (21:00)
[2019-04-05 22:08] VITALS: BMI 21.5
[2019-04-06] MEDS ORDERED: PIPER/TAZO/NS 3.375gm 3.375 GM/100 ML BAG IVPB SCH (01:00)
[2019-04-06] MEDS ORDERED: PIPERACIL/TAZO 3.375 GM VIAL IV ONE (01:06)
[2019-04-06] MEDS ORDERED: NA CHLORIDE 0.9% 100 ML ONE (01:10)
[2019-04-06] MEDS: PIPER/TAZO/NS 3.375gm 3.375 GM/100 ML BAG IVPB SCH ×3 (01:45→16:22)
[2019-04-06] MEDS: ALBUTEROL 2.5 MG/3 ML NEB SOL NEB SCH ×4 (02:00→19:55)
[2019-04-06 05:40] LABS: Absolute Lymphocytes (CBC) 0.9 K/uL (0.7-4.9); Basophils % 0.6 % (0-1.3); Hematocrit 33.2 % (39.6-49.0); Lymphocytes % 18.6 % (15.3-44.8); MPV 10.2 fL (7.6-11.3); RBC Red Blood Cell Count 3.77 M/uL (4.33-5.43)
[2019-04-06 06:05] LABS: Potassium 3.4 mmol/L (3.5-5.1)
[2019-04-06] MEDS ORDERED: POTASSIUM CL SA 10 MEQ TAB PO ONE (07:15)
[2019-04-06] MEDS: METOPROLOL XL 25 MG TAB PO SCH (09:00)
[2019-04-06] MEDS ORDERED: AMIODARONE HCL 200 MG TAB PO SCH (09:00)
[2019-04-06] MEDS ORDERED: OCUVITE (VIT A,C & E/LUTEIN/MINERAL) TABLET PO SCH (09:00)
[2019-04-06] MEDS ORDERED: MULTIVIT W/ MINERAL TAB PO SCH (09:00)
[2019-04-06] MEDS ORDERED: CYANOCOBALAMIN 1,000 MCG TAB PO SCH (09:00)
[2019-04-06] MEDS ORDERED: HOME MED 1 EA UNK (Galantamine Hbr [Galantamine Er] 12 MG) PO SCH (09:00)
[2019-04-06] MEDS ORDERED: FUROSEMIDE 20 MG TABLET PO SCH (09:00)
[2019-04-06] MEDS ORDERED: HOME MED 1 EA UNK (Memantine Hcl [Namenda Xr] 28 MG) PO SCH (09:00)
--- NOTE | 2019-04-06 11:06 | RAD REPORT ---
EXAM DESCRIPTION: RAD - Barium Swallow Modified - 04/06/2019 10:59 am CLINICAL HISTORY: swallowing evaluation Dysphagia COMPARISON: SMALL BOWEL SERIES dated 10/20/2012 TECHNIQUE: The patient was given liquid, semi-solid and solid forms of barium. Lateral view fluorosc opic imaging was performed in conjunction with speech pathology service. FINDINGS: Laryngeal penetration: cleared with thin Pharyngeal residue: moderate to severe in the vallecular with hosea cracker. mild in the pyriform w ith all consistencies. minimal in the posterior wall with nectar. Moderate to severe esophageal retention (60+ seconds) and retropulsion with barium and thin liquid, c leared with second sip of thin. Prominence of cricopharyingeus muscle. Esophageal narrowing / stric ture in lower half. Total fluoroscopy time: 4 minutes and 7 seconds
[2019-04-06] MEDS: XARELTO 20 MG PO SCH (16:23)
[2019-04-06] MEDS ORDERED: RIVAROXABAN 20 MG TABLET PO SCH (17:00)
[2019-04-06] MEDS ORDERED: RIVAROXABAN 10 MG TABLET PO SCH (17:00)
[2019-04-06] MEDS: METOPROLOL TARTRATE 25 MG PO SCH (21:00)
[2019-04-06] MEDS: ATORVASTATIN 10 MG TAB PO SCH (21:00)
[2019-04-06] MEDS: HYDROCORTISONE ACETATE 25MG SUPP PR PRN (21:52)
[2019-04-07] MEDS: PIPER/TAZO/NS 3.375gm 3.375 GM/100 ML BAG IVPB SCH ×3 (00:22→16:46)
[2019-04-07] MEDS: ALBUTEROL 2.5 MG/3 ML NEB SOL NEB SCH ×4 (01:20→20:00)
--- NOTE | 2019-04-07 01:31 | PN ---
Date of Progress Note: 04/06/2019 Subjective: Patient was seen this morning for followup. No new complaints or problems reported by layne shabazz. He was lying in bed, not in distress. was present with him at bedside. Objective: HEENT: Unremarkable. Lungs: Clear to auscultation except diminished air entry with some rales in right lower lobe, unchan ged from yesterday. Not using accessory muscles of respiration. Heart: Sounds normal. Abdomen: Soft. Bowel sounds normal. No guarding, rigidity, tenderness, or distention. Extremities: No leg edema. Laboratory Data: Sodium 144, potassium 3.4, chloride 110, bicarb 29, BUN 21, creatinine 1.20, glucos e 79. White count 5, hemoglobin 11.4, platelets 152. Impression: 1.Pneumonia. 2.Anemia. 3.Right-sided pleural effusion. 4.Senile dementia. 5.Hypokalemia. Plan: We will go ahead and continue current antibiotics. Follow up with speech therapy. Physical t herapy to help ambulate the patient. Continue home medications and I will see him tomorrow for gerald sánchez. CARMINE/MODL Voice ID: [id number] Report ID: [id number]
--- NOTE | 2019-04-07 05:11 | HP ---
Date of Admission: 04/05/2019 Chief Complaint: Fever, shortness of breath, cough. 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 He was breathing shallow. He was brought to the emergency room. After he was evaluated in the ER, he was found to have pneumonia with pleural effusion in his right lower lobe ar ea. The patient was admitted to the hospital. I saw him in emergency room for this admission. He i s not coughing up any mucus. Allergies: NO KNOWN ALLERGIES. Medications: List reviewed. Review of Systems: Constitutional: As mentioned above. Respiratory: As mentioned. Above all other systems reviewed and negative. Past Surgical History: TURP, hernia repair, back surgery, and lumpectomy. Family History: Not pertinent. Social History: Negative for smoking and alcohol use. 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 Physical Examination: VITAL SIGNS: Temperature 97, pulse 100, respiratory rate 19, blood pressure 180/90, oxygen saturatio n 95% on 2 L nasal cannula oxygen. Height 6 feet 2 inches, weight 168 pounds. General: The patient is awake, alert, not in any distress, not oriented. HEENT: Head atraumatic, normocephalic. Conjunctivae nonerythematous. Sclerae white. Mouth, no thr ush or edema noted. Ears/Nose, no mass, lesion, discharge noted. Neck: Supple. No JVD, lymph nodes, bruit, thyromegaly noted. Lungs: Diminished air entry in the right lower lung field with some presence of rales. Heart: Normal heart sounds, no murmur or gallop. Abdomen: Soft, bowel sounds normal. No guarding, rigidity, tenderness, mass, hepatosplenomegaly, dis tention, or bruit noted. Extremities: No leg edema. No calf tenderness. Skin: No rash, ulcer, cellulitis. Lymphatics: No lymph node enlargement in neck, supraclavicular, infraclavicular region. Neuro: No focal neurological deficit. Chest: Unremarkable. External Genitalia: Deferred. Rectal: Deferred. Laboratory Data: White count 6.6, hemoglobin 13.1, platelets 171. Sodium 142, potassium 4, chloride 109, bicarb 27, BUN 21, creatinine 1.11, glucose 91. Liver function tests are unremarkable. Tropon in 0.03. ProBNP 9061. Urinalysis negative. Influenza A and B test negative. Chest x-ray, moderate amount of opacity in the right lung base, combination of pneumonia and pleural effusion noted. Hear t is moderately enlarged. Impression: 1.Pneumonia, rule out aspiration pneumonia. 2.Pleural effusion. 3.Paroxysmal atrial fibrillation. 4.Chronic anticoagulation therapy. 5.Hypertension. 6.Hyperlipidemia. 7.Senile dementia. 8.Hypothyroidism. 9.Allergic rhinitis. 10.Diverticulosis. 11.Anemia, unspecified. Plan: Admit the patient to hospital for further evaluation and management of this problem. The [facility] ent is appropriate for inpatient and is expected to spend 2 midnights in hospital. We will go ahead and continue home medications, give IV antibiotic, which is Zosyn. We will get a Speech Therapy's co nsultation and order modified barium swallow to evaluate his swallowing. We will consult [facility] santiago to help ambulate the patient. I will see him tomorrow for followup. Details of plan of treatm ent discussed with the patient and patient's . CARMINE/MODL Voice ID: [id number]
[2019-04-07] MEDS ORDERED: LEVOTHYROXINE SOD 0.075 MG TAB PO SCH (06:00)
[2019-04-07] MEDS: LEVOTHYROXINE 75 MCG PO SCH (06:18)
[2019-04-07] MEDS: [UNRECOGNIZED DRUG - OTHER] PO SCH (09:00)
[2019-04-07] MEDS: VITAMIN B12 1000 MCG PO SCH (09:00)
[2019-04-07] MEDS: CENTRUM SILVER PO SCH (09:00)
[2019-04-07] MEDS: METOPROLOL TARTRATE 25 MG PO SCH ×2 (09:00→21:16)
[2019-04-07] MEDS: LASIX 40 MG PO SCH (09:00)
[2019-04-07] MEDS: XARELTO 20 MG PO SCH (16:46)
[2019-04-07] MEDS: ATORVASTATIN 10 MG TAB PO SCH (21:00)
[2019-04-08] MEDS: PIPER/TAZO/NS 3.375gm 3.375 GM/100 ML BAG IVPB SCH ×3 (00:39→17:48)
--- NOTE | 2019-04-08 01:38 | PN ---
Date of Progress Note: 04/07/2019 Subjective: Patient was seen this morning for followup. He was sitting in the bed, was present with him at bedside. Denied any complaints. Objective: Vital Signs: Reviewed. HEENT: Unremarkable. Lungs: Clear to auscultation except diminished air entry in the right lower lung rales. Not in any respiratory distress. Heart: Heart sounds normal. Abdomen: Soft, bowel sounds normal. No guarding, rigidity, tenderness, or distention. Extremities: No leg edema. Impression: 1.Aspiration pneumonia. 2.Dementia. 3.Atrial fibrillation. Plan: Continue current medication, antibiotic. Speech therapist's recommendation reviewed. Hayden iniguez barium swallow test results reviewed. On outpatient basis, patient should follow up with his gastr oenterologist, which is Dr. Spencer/Dr. Ellsworth. We started him on Anusol rectal suppository yesterday hemorrhoid problem. We will repeat chest x-ray tomorrow, blood work and decide about possible disch arge. We will do speech therapist as recommended, diet recommendation, and will continue diet accord ingly. CARMINE/ORLANDOL Voice ID: [id number] Report ID: [id number]
[2019-04-08] MEDS: ALBUTEROL 2.5 MG/3 ML NEB SOL NEB SCH ×4 (02:00→20:25)
[2019-04-08 05:49] LABS: Basophils % 0.8 % (0-1.3); Hematocrit 34.4 % (39.6-49.0); Lymphocytes % 19.4 % (15.3-44.8); MPV 10.2 fL (7.6-11.3); RBC Red Blood Cell Count 3.89 M/uL (4.33-5.43)
[2019-04-08 05:58] LABS: Magnesium 2.4 mg/dL (1.8-2.4); Potassium 4.1 mmol/L (3.5-5.1)
[2019-04-08] MEDS: LEVOTHYROXINE 75 MCG PO SCH (06:30)
--- NOTE | 2019-04-08 08:58 | RAD REPORT ---
EXAM DESCRIPTION: Kelsey Pa And Lat (2 Views)04/08/2019 8:10 am CLINICAL HISTORY: Cough COMPARISON: April 05, 2019 FINDINGS: Small to moderate right and small left pleural effusions. Right basilar opacity could represent atelectasis or infiltrate Mild bilateral interstitial lung opacities. Heart is moderately enlarged IMPRESSION: These findings probably represent CHF. Superimposed right basilar pneumonia is possible
[2019-04-08] MEDS ORDERED: FUROSEMIDE 20 MG/ 2ML VIAL IV ONE (09:20)
[2019-04-08] MEDS ORDERED: POTASSIUM CL SA 10 MEQ TAB PO ONE (09:21)
[2019-04-08] MEDS: METOPROLOL TARTRATE 25 MG PO SCH ×2 (09:27→20:39)
[2019-04-08] MEDS: CENTRUM SILVER PO SCH (09:27)
[2019-04-08] MEDS: VITAMIN B12 1000 MCG PO SCH (09:28)
[2019-04-08] MEDS: LASIX 40 MG PO SCH (09:28)
[2019-04-08] MEDS: [UNRECOGNIZED DRUG - OTHER] PO SCH (09:29)
--- NOTE | 2019-04-08 15:02 | PN ---
Date of Progress Note: 04/08/2019 Patient was seen this morning for followup. The patient's was with him at bedside. report ed that the patient did ambulate yesterday but with ambulation. He was noted to have a little bit sh ortness of breath. Yesterday evening and last night as well as this morning while he was resting, wi fe noted that the patient was having shortness of breath just like the way it was before he came into the emergency room. Objective: Vital Signs: Reviewed. HEENT: Examination unremarkable. Lungs: Bilateral good equal air entry. Presence of diminished air entry in the lower lung farrar wi th some rales noted in lower lung farrar on both sides. Heart: Sounds normal. Abdomen: Soft. Bowel sounds normal. No guarding, rigidity, tenderness, distention. Extremities: No leg edema. Impression: 1.Pneumonia. 2.Congestive heart failure. 3.Dementia. Plan: We will continue current medications. Continue current anticoagulation therapy, antibiotics. We will start Lasix 20 mg IV every 12 hours, first dose to be given now and we will start him on pot assium replacement as well. Repeat blood work tomorrow morning. Ambulation was encouraged. We will get an echo with Doppler today to evaluate left ventricular ejection fraction. Chest x-ray from today, results reviewed. CARMINE/MODL Voice ID: [id number] Report ID: [id number]
[2019-04-08] MEDS: XARELTO 20 MG PO SCH (17:00)
[2019-04-08] MEDS: FUROSEMIDE 20 MG/ 2ML VIAL IV SCH (17:49)
[2019-04-08] MEDS: ATORVASTATIN 10 MG TAB PO SCH (20:40)
[2019-04-08] MEDS: POTASSIUM CL SA 10 MEQ TAB PO SCH (20:41)
[2019-04-09] MEDS: PIPER/TAZO/NS 3.375gm 3.375 GM/100 ML BAG IVPB SCH ×3 (00:46→16:43)
[2019-04-09] MEDS: ALBUTEROL 2.5 MG/3 ML NEB SOL NEB SCH ×4 (01:30→20:00)
[2019-04-09] MEDS: LEVOTHYROXINE 75 MCG PO SCH (06:27)
[2019-04-09 06:47] LABS: Magnesium 2.5 mg/dL (1.8-2.4); Potassium 3.8 mmol/L (3.5-5.1)
[2019-04-09] MEDS ORDERED: FE SULF/FA/VIT B COMP & C TAB PO SCH (08:00)
[2019-04-09] MEDS: HEMOCYTE PLUS PO SCH (08:00)
[2019-04-09] MEDS: LASIX 40 MG PO SCH (09:00)
[2019-04-09] MEDS: VITAMIN B12 1000 MCG PO SCH (09:00)
[2019-04-09] MEDS: METOPROLOL TARTRATE 25 MG PO SCH ×2 (09:00→22:21)
[2019-04-09] MEDS: CENTRUM SILVER PO SCH (09:00)
[2019-04-09] MEDS: [UNRECOGNIZED DRUG - OTHER] PO SCH (09:00)
[2019-04-09] MEDS: POTASSIUM CL SA 10 MEQ TAB PO SCH ×2 (09:18→22:23)
[2019-04-09] MEDS: FUROSEMIDE 20 MG/ 2ML VIAL IV SCH ×2 (09:22→16:43)
[2019-04-09] MEDS: XARELTO 20 MG PO SCH (16:47)
--- NOTE | 2019-04-09 18:27 | PN ---
Date of Progress Note: 04/09/2019 Subjective: Patient was seen this morning for followup. He was lying in bed. was at bedside. No new complaints or problems reported. Still gets short of breath when he walks around. Objective: Vital Signs: Reviewed. HEENT: Unremarkable, except some rales noted in both lower lung farrar, unchanged from yesterday. Heart: Sounds normal. Abdomen: Soft. Bowel sounds normal. No guarding, rigidity, tenderness, or distention. Extremities: No leg edema. Laboratory Data: Sodium 144, potassium 3.8, chloride 109, bicarb 29, BUN 21, creatinine 1.37, glucos e 86, magnesium 2.5. Impression: 1.Pneumonia. 2.Congestive heart failure, acute, diastolic. Plan: Patient had an echocardiogram done last month at office of Dr. Dawkins and results reviewed, h as normal ejection fraction. Echocardiogram was unremarkable, so what we believe that his congestive heart failure is due to diastolic dysfunction. Details were discussed with patient and patient's wi fe. We will continue Lasix. We will repeat blood work tomorrow. Renal function has slightly gone u p. We will monitor that and we will get a chest x-ray done tomorrow as well. Continue antibiotics f or pneumonia. CARMINE/MODL Voice ID: [id number] Report ID: [id number]
[2019-04-09] MEDS: ATORVASTATIN 10 MG TAB PO SCH (21:00)
[2019-04-10] MEDS: PIPER/TAZO/NS 3.375gm 3.375 GM/100 ML BAG IVPB SCH ×3 (00:36→17:51)
[2019-04-10] MEDS: ALBUTEROL 2.5 MG/3 ML NEB SOL NEB SCH ×4 (02:00→20:05)
[2019-04-10] MEDS: LEVOTHYROXINE 75 MCG PO SCH (06:30)
[2019-04-10] MEDS ORDERED: ALBUTEROL 2.5 MG/3 ML NEB SOL ONE (07:27)
[2019-04-10] MEDS: FUROSEMIDE 20 MG/ 2ML VIAL IV SCH (09:00)
[2019-04-10] MEDS: HEMOCYTE PLUS PO SCH (09:19)
[2019-04-10 09:20] LABS: Absolute Lymphocytes (CBC) 0.8 K/uL (0.7-4.9); Basophils % 2.4 % (0-1.3); Hematocrit 39.3 % (39.6-49.0); Lymphocytes % 15.1 % (15.3-44.8); MPV 9.8 fL (7.6-11.3); RBC Red Blood Cell Count 4.36 M/uL (4.33-5.43)
[2019-04-10] MEDS: CENTRUM SILVER PO SCH (09:20)
[2019-04-10] MEDS ORDERED: MAGNESIUM HYDROXIDE 8% 30 ML PO ONE (09:20)
[2019-04-10] MEDS: [UNRECOGNIZED DRUG - OTHER] PO SCH (09:24)
[2019-04-10] MEDS: METOPROLOL TARTRATE 25 MG PO SCH ×2 (09:24→17:52)
[2019-04-10] MEDS: LASIX 40 MG PO SCH (09:24)
[2019-04-10] MEDS: VITAMIN B12 1000 MCG PO SCH (09:26)
[2019-04-10] MEDS: POTASSIUM CL SA 10 MEQ TAB PO SCH ×2 (09:27→20:38)
[2019-04-10 09:31] LABS: Magnesium 2.6 mg/dL (1.8-2.4); Potassium 3.5 mmol/L (3.5-5.1)
--- NOTE | 2019-04-10 12:27 | RAD REPORT ---
EXAM DESCRIPTION: RAD - Chest Pa And Lat (2 Views) - 04/10/2019 10:51 am CLINICAL HISTORY: pneumonia, CHF Chest pain. COMPARISON: Chest Pa And Lat (2 Views) dated 04/08/2019; Chest Single View dated 04/05/2019; Chest Si ngle View dated 04/06/2016; Chest Single View dated 04/05/2016 FINDINGS: Small left and moderate right pleural effusion, unchanged. Mild improvement in pulmonary e milka is seen. The heart is moderately enlarged in size. No displaced fractures. IMPRESSION: Mild improvement in pulmonary edema since study. No change in bilateral pleural effusions, greater on right.
[2019-04-10] MEDS ORDERED: FUROSEMIDE 20 MG/ 2ML VIAL IV ONE (14:44)
[2019-04-10] MEDS: XARELTO 20 MG PO SCH (17:53)
--- NOTE | 2019-04-10 19:25 | PN ---
Date of Progress Note: 04/10/2019 Subjective: Patient was seen this morning for followup. No new complaints or problems reported by layne shabazz. reports that he is having shortness of breath mostly when he is in the bathroom, trying to have bowel movements and he is straining to have bowel movement and that is the time he gets shor t of breath. Yesterday, he did not ambulate, as there was no physical therapy yesterday to help him with ambulation and today there will not be anybody to ambulate him either. His appetite is good. Objective: Vital Signs: Reviewed. HEENT: Unremarkable. Lungs: Bilateral good equal air entry, not in any respiratory distress. Diminished air entry in rig ht lung basal region. Heart: Sounds normal. Abdomen: Soft. Bowel sounds normal. No guarding, rigidity, tenderness, distention. Extremities: No leg edema. Laboratory Data: CBC, chemistry, and chest x-ray results from today reviewed. Impression: 1.Pneumonia. 2.Congestive heart failure, acute, diastolic. 3.Pleural effusion secondary to pneumonia. Plan: We will continue current medications including antibiotics. We will give 1 dose of IV Lasix t radha. Chest x-ray shows changes of congestive heart failure. Patient's right-sided dspzi-co-vvocwtq e pleural effusion is due to pneumonia and some of it could be congestive heart failure, but mostly d ue to pneumonia. I have ordered milk of magnesia x1 dose today Senokot S 2 tablets to be given daily at bedtime. I will see him stef saeed for followup. CARMINE/MODL Voice ID: [id number] Report ID: [id number]
[2019-04-10] MEDS: ATORVASTATIN 10 MG TAB PO SCH (20:38)
[2019-04-10] MEDS ORDERED: DOCUSATE NA/SENNA CONC 1 TAB PO SCH (21:00)
[2019-04-11] MEDS: PIPER/TAZO/NS 3.375gm 3.375 GM/100 ML BAG IVPB SCH ×3 (01:25→16:23)
[2019-04-11] MEDS: ALBUTEROL 2.5 MG/3 ML NEB SOL NEB SCH ×4 (01:35→20:00)
[2019-04-11] MEDS: LEVOTHYROXINE 75 MCG PO SCH (06:15)
[2019-04-11] MEDS ORDERED: MAGNESIUM HYDROXIDE 8% 30 ML PO ONE (07:11)
[2019-04-11] MEDS: METOPROLOL TARTRATE 25 MG PO SCH ×2 (08:41→20:57)
[2019-04-11] MEDS: LASIX 40 MG PO SCH (08:41)
[2019-04-11] MEDS: POTASSIUM CL SA 10 MEQ TAB PO SCH ×2 (08:45→21:01)
[2019-04-11] MEDS: DOCUSATE NA/SENNA CONC 1 TAB PO SCH ×2 (08:45→21:00)
[2019-04-11] MEDS: [UNRECOGNIZED DRUG - OTHER] PO SCH (09:16)
[2019-04-11] MEDS: VITAMIN B12 1000 MCG PO SCH (09:17)
[2019-04-11] MEDS: CENTRUM SILVER PO SCH (09:17)
[2019-04-11] MEDS: HYDROCORTISONE ACETATE 25MG SUPP PR PRN (14:51)
[2019-04-11] MEDS: ATORVASTATIN 10 MG TAB PO SCH (16:19)
[2019-04-11] MEDS: XARELTO 20 MG PO SCH (17:31)
--- NOTE | 2019-04-11 17:46 | RAD REPORT ---
EXAM DESCRIPTION: RAD - Chest Pa And Lat (2 Views) - 04/11/2019 5:23 pm CLINICAL HISTORY: pneumonia, pleural effusion, CHFpneumonia, pleural effusion, CHF COMPARISON: April 10 TECHNIQUE: PA and lateral views of the chest were obtained. FINDINGS: The lungs are fibrotic as a baseline. Right-sided pleural effusion with right base infiltr ate and/ or atelectasis still present. Small left pleural effusion is still present. No new lung pare nchymal process. Trachea is midline. Heart size is normal and central vasculature is within normal limits. No pleur al effusion or pneumothorax seen. No acute bony finding noted. No aortic abnormality. IMPRESSION: Right greater than left pleural effusion with lung base infiltrate and/ or atelectasis. Overall chest examination is not significantly different from April 10.
[2019-04-11] MEDS ORDERED: PRAVASTATIN 80 MG TABLET PO SCH (21:00)
[2019-04-12] MEDS: PIPER/TAZO/NS 3.375gm 3.375 GM/100 ML BAG IVPB SCH ×2 (00:53→09:00)
[2019-04-12] MEDS: ALBUTEROL 2.5 MG/3 ML NEB SOL NEB SCH ×2 (01:50→09:06)
[2019-04-12] MEDS: LEVOTHYROXINE 75 MCG PO SCH (05:36)
[2019-04-12 05:59] LABS: Basophils % 1.1 % (0-1.3); Hematocrit 35.7 % (39.6-49.0); Lymphocytes % 18.1 % (15.3-44.8); MPV 10.5 fL (7.6-11.3); RBC Red Blood Cell Count 4.04 M/uL (4.33-5.43)
[2019-04-12 06:00] LABS: Potassium 4.1 mmol/L (3.5-5.1)
--- NOTE | 2019-04-12 08:07 | PN ---
Date of Progress Note: 04/11/2019 Subjective: Patient was seen this morning for followup. He was lying in bed. was present with him at the bedside. No new complaints or problems reported. Patient was resting well. Has not had as reported by . Objective: Vital Signs: Reviewed. HEENT: Unremarkable. Lungs: Clear to auscultation except diminished air entry in the right lung base. Not using accessor y muscles of respiration. Heart: Sounds . Abdomen: Soft. Bowel sounds normal. No guarding, rigidity, tenderness, or distention. Extremities: No leg edema. Impression: 1.Pneumonia. 2. . 3.Congestive heart failure. 4.Atrial fibrillation . Plan: We will go ahead and continue current medications including antibiotics, Lasix, repeat chest x -ray today, blood work tomorrow morning. Social service consultation was requested to assist with di scharge planning and possible discharge to go home tomorrow with home health. All those details were discussed with the patient's . We will increase dose of Senokot-S from 2 tablets once a day to 2 tablets twice a day . CARMINE/MODL Voice ID: [id number] Report ID: [id number]
[2019-04-12] MEDS: METOPROLOL TARTRATE 25 MG PO SCH (08:36)
[2019-04-12] MEDS: LASIX 40 MG PO SCH (08:39)
[2019-04-12] MEDS: VITAMIN B12 1000 MCG PO SCH (08:40)
[2019-04-12] MEDS: [UNRECOGNIZED DRUG - OTHER] PO SCH (08:41)
[2019-04-12] MEDS: POTASSIUM CL SA 10 MEQ TAB PO SCH (08:41)
[2019-04-12] MEDS: DOCUSATE NA/SENNA CONC 1 TAB PO SCH (08:41)
[2019-04-12] MEDS: CENTRUM SILVER PO SCH (08:43)
[2019-04-12 09:42] VITALS: BP 162/79; TEMP 98.1
[2019-04-12 11:32] VITALS: O2SAT 96
--- NOTE | 2019-04-13 03:32 | DS ---
Date of Discharge: 04/12/2019 Discharge Medications And Instructions: 1.Continue all prior home medications. 2.Take Augmentin 500 mg by mouth 2 times a day with food for 1 week. 3.Take nivr-ifg-mctoxip Senokot-S 2 tablets by mouth 2 times a day for constipation. 4.Follow up at my office on 04/14. CARMINE/BLAISE Voice ID: [id number] Report ID: [id number]
--- NOTE | 2019-04-13 05:09 | DS ---
Date of Discharge: 04/12/2019 Subjective: Patient was seen this morning for followup, lying in bed not in distress. was pres ent with him at bedside. Objective: HEENT: Unremarkable. LUNGS: Bilateral good equal air entry. No rales, no wheezing. Patient has diminished air entry in the right lung base, unchanged. HEART: Heart sounds normal. ABDOMEN: Soft. Bowel sounds normal. No guarding, rigidity, tenderness, or distention. EXTREMITIES: No leg edema. Laboratory Data: Last white count today 5.6, hemoglobin 12.2, platelets 194. Upon admission, white count 6.6, hemoglobin 13.1, platelets , bicarb 27, BUN 22, creatinine 1.57, glucose 88. Hospital Course: An 88-year-old male patient admitted to the hospital with shortness of breath and c ough. Please see dictated H and P for more information. The patient was evaluated in the ER, he was admitted to hospital with pneumonia. I was concerned about possibility of aspiration pneumonia and speech therapist was consulted. A modified barium swallow test was done and speech therapy gave appr opriate order for diet recommendations, but also advised for patient to have GI consult and patient n ormally sees Dr. Spencer and Dr. Ellsworth on outpatient basis. His was given a copy of the recomme ndation Dr. Spencer after discharge. Overall his condition improved with IV antibiotics oxyg en nebulizer treatment. He started to ambulate with Physical Therapy. He had some shortness of aranza th with ambulation, but overall continued to improve. He did develop some pleural effusion in both l jocelyne farrar as a result of congestive heart failure as well as pneumonia and he was given IV Lasix for that and that actually has improved it. Social Service was consulted to assist with discharge plann ing, including home health care and home physical therapy. Final Diagnoses: 1.Pneumonia, rule out aspiration pneumonia. 2.Pleural effusion. 3.Paroxysmal atrial fibrillation. 4.Chronic anticoagulation therapy. 5.Hypertension. 6.Hyperlipidemia. 7.Senile dementia. 8.Hypothyroidism. 9.Allergic rhinitis. 10.Diverticulosis. 11.Anemia, unspecified. 12.Chronic kidney disease stage 3. 13.Congestive heart failure , diastolic. CARMINE/MODL Voice ID: [id number] Report ID: [id number]
--- OUTSIDE RECORDS SUMMARY | 2019-04-17 15:40 | XMS REPORT ---
:1930 Author Organization [employer] Care Team Providers Name Role Phone Chavez Garret Provider Role Unavailable Allergies, Adverse Reactions, Alerts Substance Reaction Event Type N.K.D.A. Info Not Available Non Drug Allergy Problems Problem Type Condition Code Onset Dates Condition Status Problem Contusion of right knee, initial S80.01XA Active encounter Problem Pain, joint, knee, right M25.561 Active Assessment Pain, joint, knee, right M25.561 Active Assessment Contusion of right knee, initial S80.01XA Active encounter Medications Medication Code Code Instructions Start End Status Dosage System Date Date Ocuvite Eye [facility] 51266382622 - Orally Active as Health Formula directed Vitamin B-12 [facility] 05927520192 100 MCG Orally Active as directed Amiodarone HCl [facility] 85327208386 200 MG Oral Active TAKE 1 TABLET BY MOUTH EVERY DAY Hemocyte Plus [facility] [address]-81 Active not defined Galantamine [facility] 70490389170 12 MG Oral Active TAKE 1 Hydrobromide TABLET BY MOUTH TWICE A DAY Centrum Silver [facility] 00058474886 - Orally Active as directed Xarelto [facility] 64112434399 10 MG Orally Active 1 tablet Once a day with food Acetaminophen-Co [facility] [address]-26 Active not deine #3 defined Levothyroxine [facility] [address]-58 Active not Sodium defined Namenda XR [facility] [address]-12 Active not defined Pravastatin [facility] 05227177966 80 MG Oral Active TAKE 1 Sodium TABLET BY MOUTH EVERY DAY IN THE EVENING. Furosemide ND 17488070187 40 MG Oral Active TAKE 1 TABLET BY MOUTH EVERY DAY Results No Known Results Summary Purpose [employer] Submission
== END 2019-04-12 10:45 | disposition home health service (06) | DRG 177 ==
LOC: ER 16:22 → ERHOLD 18:25 → 2ND 21:20
PROVIDERS: ADMIT Internal Medicine; ATTEND Internal Medicine
DX: J69.0 Pneumonitis due to inhalation of food and vomit (principal); I50.31 Acute diastolic (congestive) heart failure; I13.0 Hypertensive heart and chronic kidney disease with heart failure and stage 1 through stage 4 chronic kidney disease, or unspecified chronic kidney disease; N18.3 Chronic kidney disease, stage 3 (moderate); I48.0 Paroxysmal atrial fibrillation; E78.5 Hyperlipidemia, unspecified; F03.90 Unspecified dementia, unspecified severity, without behavioral disturbance, psychotic disturbance, mood disturbance, and anxiety; E03.9 Hypothyroidism, unspecified; J30.9 Allergic rhinitis, unspecified; K57.90 Diverticulosis of intestine, part unspecified, without perforation or abscess without bleeding; D64.9 Anemia, unspecified; Z79.01 Long term (current) use of anticoagulants
CPT/HCPCS: 36415; 71045; 71046; 74230; 80048; 80076; 81003; 81015; 83735; 83880; 84484; 85025; 85610; 87804; 92611; 93005; 94640; 94760; 96365; 96366; 96375; 97110; 97116; 97161; 97530; 99285; J1940; J2543

== ENCOUNTER 2019-04-21 15:31 | Inpatient (IN) | payer OTHER ==
--- OUTSIDE RECORDS SUMMARY | 2019-04-21 15:33 | XMS REPORT ---
[...] Dosage System Date Date Ocuvite Eye [facility] 76869892026 - Orally Active as Health Formula directed Vitamin B-12 [facility] 23073626695 100 MCG Orally Active as directed Amiodarone HCl [facility] 67785611442 200 MG Oral Active TAKE 1 TABLET BY MOUTH EVERY DAY Hemocyte Plus [facility] [address]-67 Active not defined Galantamine [facility] 08421372849 12 MG Oral Active TAKE 1 Hydrobromide TABLET BY MOUTH TWICE A DAY Centrum Silver [facility] 34303796994 - Orally Active as directed Xarelto [facility] 40754975861 10 MG Orally Active 1 tablet Once a day with food Acetaminophen-Co [facility] [address]-43 Active not deine #3 defined Levothyroxine [facility] [address]-42 Active not Sodium defined Namenda XR [facility] [address]-85 Active not defined Pravastatin [facility] 42751775905 80 MG Oral Active TAKE 1 Sodium TABLET BY MOUTH EVERY DAY IN THE EVENING. Furosemide ND 57498963892 40 MG Oral Active TAKE 1 TABLET BY MOUTH EVERY DAY Results No Known Results Summary Purpose [employer]Works Submission
[2019-04-21] MEDS ORDERED: FUROSEMIDE 40 MG/4 ML VIAL IV ONE (17:00)
[2019-04-21 17:04] VITALS: BMI 22.6
[2019-04-21 17:07] LABS: Absolute Lymphocytes (CBC) 0.8 K/uL (0.7-4.9); Basophils % 0.4 % (0-1.3); Hematocrit 37.4 % (39.6-49.0); MPV 11.1 fL (7.6-11.3); RBC Red Blood Cell Count 4.19 M/uL (4.33-5.43)
[2019-04-21 17:12] LABS: Albumin 3.1 g/dL (3.4-5.0); Bilirubin Total 0.8 mg/dL (0.2-1.0); Magnesium 2.5 mg/dL (1.8-2.4); Potassium 4.7 mmol/L (3.5-5.1); Protein, Total 7.1 g/dL (6.4-8.2)
--- NOTE | 2019-04-21 18:15 | RAD REPORT ---
EXAM DESCRIPTION: RAD - Chest Pa And Lat (2 Views) - 04/21/2019 6:05 pm CLINICAL HISTORY: CHF Chest pain. COMPARISON: Chest Pa And Lat (2 Views) dated 04/11/2019; Chest Pa And Lat (2 Views) dated 04/10/2019; Chest Pa And Lat (2 Views) dated 04/08/2019; Chest Single View dated 04/05/2019 FINDINGS: Mild interstitial pulmonary edema is seen. Moderate right and small left pleural effusion is evident. The heart is moderately enlarged in size. No displaced fractures. IMPRESSION: Moderate right and small left pleural effusion. Mild CHF/ volume overload pattern.
[2019-04-21] MEDS ORDERED: DOCUSATE NA/SENNA CONC 1 TAB PO PRN (18:38)
[2019-04-21 18:46] LABS: Urine Color YELLOW
[2019-04-21 18:47] LABS: Urine Appearance CLEAR; Urine Bilirubin NEGATIVE (NEG); Urine Blood NEGATIVE (NEG); Urine Glucose NEGATIVE (NEG); Urine Protein TRACE (NEG); Urine Specific Gravity 1.015 (1.005-1.030); Urine Urobilinogen 0.2 mg/dL (0.2-1.0); Urine pH 5.5 (5.0-7.0)
[2019-04-21 18:59] LABS: Urine Bacteria <20 /HPF (NONE SEEN); Urine Culture Reflex Order NOT NEEDED; Urine Mucus 1+ /HPF (NONE SEEN); Urine RBC <5 /HPF (NONE SEEN)
[2019-04-21] MEDS: GABAPENTIN 300 MG CAP PO SCH (21:00)
[2019-04-21] MEDS ORDERED: HOME MED 1 EA UNK (Pravastatin Sodium [Pravachol] 80 MG) PO SCH (21:00)
[2019-04-21] MEDS: HOME MED 1 EA UNK (Galantamine Hbr [Galantamine Er] 12 MG) PO SCH (21:00)
[2019-04-21] MEDS: METOPROLOL TAR 25 MG TAB PO SCH (21:00)
--- NOTE | 2019-04-22 03:47 | HP ---
Date of Admission: 04/21/2019 Chief Complaint: Shortness of breath. History Of Present Illness: This is an 88-year-old male patient who was recently in the hospital with pneumonia problem, finished his antibiotic as prescribed and today he was brought into office by his and daughter with complaints of shortness of breath. Patient is having shortness of breath with walking about 10 steps in the house, and also having some shortness of breath at night time. No fever. No expectoration. No vomiting, diarrhea. He gets very hot and feels sweaty when he has shortness of breath. After he was evaluated, he was admitted to the hospital. Normally, patient comes to office walking on his own, today he was in the wheelchair. No chest pain. Medications: List reviewed. Review of Systems: Cardiovascular: As mentioned above. All other systems reviewed and negative. Allergies: NO KNOWN ALLERGIES. Past Surgical History: TURP, hernia repair, back surgery, lumpectomy. Family History: Not pertinent. Social History: Negative for smoking, alcohol use. 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 Physical Examination: Vital Signs: Temperature 97.5, pulse 86, respiratory rate 28, blood pressure 148/84. General: Awake, alert, oriented, not in distress. HEENT: Head atraumatic, normocephalic. Conjunctivae nonerythematous. Sclerae white. Mouth, no thrush or edema noted. Ears/Nose, no mass, lesion, discharge noted. Neck: Supple. No JVD, lymph nodes, bruit, thyromegaly noted. Lungs: lower lung farrar with presence of rales. Heart: Normal heart sounds, no murmur or gallop. Abdomen: Soft, bowel sounds normal. No guarding, rigidity, tenderness, mass, hepatosplenomegaly, distention, or bruit noted. Extremities: Trace leg edema. Skin: No rash, ulcer, cellulitis. Lymphatics: No lymph node enlargement in neck, supraclavicular, infraclavicular region. Neuro: No focal neurological deficit. Chest: Unremarkable. External Genitalia: Deferred. Rectal: Deferred. Laboratory Data: White count 5.9, hemoglobin 11.4, platelets 189. Sodium 144, potassium 4.7, chloride 110, bicarb 28, BUN 24, creatinine 1.37, glucose 141, magnesium 2.5. Liver function tests unremarkable except SGOT 45. ProBNP 40496. Chest x-ray moderate right and small left pleural effusion with changes of congestive heart failure. Impression: 1. Congestive heart failure, chronic, diastolic, with acute exacerbation. 2. Chronic atrial fibrillation. 3. Pleural effusion. 4. Senile dementia. 5. Hypertension. 6. Chronic anticoagulation therapy. 7. Hyperlipidemia. 8. Hypothyroidism. 9. Diverticulosis. Plan: Admit the patient to hospital for further evaluation and management of this problem. The patient is appropriate for inpatient and is expected to spend 2 midnights in hospital. We will start IV Lasix. We will monitor electrolytes, renal function. Consult Dr. Ballard from Pulmonary and we will consult Dr. Dawkins from Cardiology Service. 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 No need to repeat another echocardiogram. We will get a CAT scan of the chest without contrast tomorrow for further evaluation of this pleural effusion to make sure there is no loculated effusion. Details and plan of treatment discussed with the patient and the patient's family member. CARMINE/BLAISE Voice ID: [id number]
[2019-04-22] MEDS: LEVOTHYROXINE SOD 0.075 MG TAB PO SCH (06:00)
[2019-04-22 06:08] LABS: Absolute Lymphocytes (CBC) 1.1 K/uL (0.7-4.9); Basophils % 0.6 % (0-1.3); Hematocrit 33.4 % (39.6-49.0); Lymphocytes % 17.1 % (15.3-44.8); MPV 10.8 fL (7.6-11.3); RBC Red Blood Cell Count 3.77 M/uL (4.33-5.43)
[2019-04-22 06:21] LABS: Magnesium 2.4 mg/dL (1.8-2.4); Potassium 3.5 mmol/L (3.5-5.1)
[2019-04-22] MEDS ORDERED: POTASSIUM CL SA 10 MEQ TAB PO ONE ×2 (07:30→09:00)
[2019-04-22] MEDS: MULTIVIT W/ MINERAL TAB PO SCH (08:49)
[2019-04-22] MEDS: HOME MED 1 EA UNK (Galantamine Hbr [Galantamine Er] 12 MG) PO SCH ×2 (08:50→21:00)
[2019-04-22] MEDS: FUROSEMIDE 40 MG/4 ML VIAL IV SCH ×2 (08:51→16:35)
[2019-04-22] MEDS: METOPROLOL TAR 25 MG TAB PO SCH ×2 (08:52→21:00)
[2019-04-22] MEDS: OCUVITE (VIT A,C & E/LUTEIN/MINERAL) TABLET PO SCH (08:53)
[2019-04-22] MEDS: CYANOCOBALAMIN 1,000 MCG TAB PO SCH (08:53)
[2019-04-22] MEDS: HOME MED 1 EA UNK (Memantine Hcl [Namenda Xr] 28 MG) PO SCH (08:53)
--- NOTE | 2019-04-22 09:08 | CON ---
Chief Complaint: Dyspnea. History Of Present Illness: Mr. Mcnulty is a gentleman, who has chronic atrial fibrillation. He jag es rivaroxaban and metoprolol for rate control. He seemed to be more short of breath than usual. A week ago he was in the hospital for pneumonia and that seemed to get better and after going home his breathing seemed to get difficult. There is difficulty breathing with walking. He has underlying se robbin dementia, atrial fib, dyslipidemia, hypertension, hypothyroidism. Outpatient Medications: Rivaroxaban, pravastatin, memantine, galantamine, furosemide, metoprolol, le vothyroxine, and gabapentin. Allergies: NO DRUG ALLERGIES ARE KNOWN. Social History: He does not use tobacco. Physical Examination: General: He is somnolent. He is awoken. He was somewhat confused to remember why he was in the [facility], did remember feeling short of breath yesterday. Lungs: Reveals some basilar crackles. Heart: The heart is irregularly irregular. Abdomen: Soft. Extremities: 1+ edema. An echocardiogram done in my office about 2 weeks ago shows normal ejection fraction. There is moder ate aortic regurgitation, mild mitral tricuspid regurgitation, normal estimated right ventricular sys tolic pressure, similar to an echocardiogram done here in the hospital in 2016. His most recent elec trocardiogram shows atrial fibrillation, nonspecific ST and T abnormality, heart rate 87. Impression: The patient has pulmonary edema from diastolic congestive heart failure. Low-sodium t and an oral loop diuretic would be the recommendation for him to continue at home. He is probably fairly close to being discharged today or tomorrow more likely. Thank you very much for your kind referral of Mr. Mcnulty. We will follow him with you. DINO/BLAISE Voice ID: [id number] Report ID: [id number]
--- NOTE | 2019-04-22 10:39 | RAD REPORT ---
EXAM DESCRIPTION: CT - Thorax Wo Con CLINICAL HISTORY: Chest pain pleural effusion COMPARISON: Chest Pa And Lat (2 Views) dated 04/21/2019 FINDINGS: Areas of subsegmental atelectasis are noted in both lungs greatest in the lower lobes. Mil d interstitial pulmonary edema suspected. Moderate bilateral pleural effusions are seen, larger on th e right. No pneumothorax. The heart is mildly enlarged in size. No axillary, mediastinal or hilar adenopathy. No concerning bony finding. No gross upper abdominal finding. All CT scans are performed using dose optimization technique as appropriate and may include automated exposure control or mA/KV adjustment according to patient size. IMPRESSION: Mild CHF suspected with moderate bilateral pleural effusions, mildly larger on the right .
--- NOTE | 2019-04-22 10:52 | P.CNS ---
Date of Consult: 04/22/19 Chief Complaint: Pleural effusion and shortness of breath History of Present Illness: Patient is 88 years of age admitted to the hospital complaining of progressive dyspnea and worse over the past week patient has a history of atrial fibrillation was on diuretics chest x-ray CT scan shows bilateral pleural effusion right worse than the left denies any fever chills cough sputum hemoptysis or chest pain. Also has some lower extremity edema patient is anti coagulated on Lasix at home Allergies No Known Drug Allergies Allergy (Verified 04/05/16 21:42) Unknown Home Medications: Furosemide [Lasix] 20 mg PO DAILY 04/06/19 Galantamine HBr [Galantamine ER] 12 mg PO BID 04/06/19 Levothyroxine [Synthroid] 75 mcg PO [id number] 04/06/19 Memantine HCl [Namenda Xr] 28 mg PO DAILY 04/06/19 Metoprolol Tartrate [Lopressor] 25 mg PO BID 04/06/19 Multivit-Min/FA/Lycopen/Lutein [Centrum Silver Tablet] 1 tab PO DAILY 04/06/19 Pravastatin Sodium [Pravachol] 80 mg PO BEDTIME 04/06/19 Rivaroxaban [Xarelto] 20 mg PO DAILY 04/06/19 Vit A,C & E/Lutein/Minerals [Ocuvite Tablet] 1 tab PO DAILY 04/06/19 Cyanocobalamin [Vitamin B-12] 1,000 mcg PO DAILY 04/21/19 Docusate/Senna [Senokot-S] 2 tab PO DAILY PRN 04/21/19 Gabapentin 300 mg PO BEDTIME 04/21/19 - Past Medical/Surgical History Diabetic: No -: high cholesterol -: dementia -: CAD -: Atrial fib -: Hypothyroidism -: depression -: Hernia repair -: Back surgery -: right lower leg surg - Social History Smoking Status: Never smoker Alcohol use: No CD- Drugs: No Caffeine use: Yes Place of Residence: Home Review of Systems 10-point ROS is otherwise unremarkable General: Weakness Respiratory: Shortness of Breath Cardiovascular: Edema Physical Examination Temp Pulse Resp BP Pulse Ox 97.3 F 80 20 152/81 H 95 04/22/19 08:00 04/22/19 08:52 04/22/19 08:00 04/22/19 08:52 04/22/19 08:00 General: Alert, Oriented x3 Respiratory: Clear to auscultation bilaterally, Normal air movement, Crackles/ rales (Crackles on the right side) Cardiovascular: Edema, Irregular heart rate/rhythm Laboratory Data (last 24 hrs) 04/22/19 05:46: WBC 6.2, Hgb 11.3 L, Hct 33.4 L, Plt Count 153 04/22/19 05:46: Sodium 146 H, Potassium 3.5, BUN 22 H, Creatinine 1.18, Glucose 88, Magnesium 2.4 04/21/19 16:43: Sodium 144, Potassium 4.7, BUN 24 H, Creatinine 1.37 H, Glucose 141 H, Magnesium 2.5 H D, Total Bilirubin 0.8, AST 45 H, ALT 58, Alkaline Phosphatase 157 H 04/21/19 16:43: WBC 5.9, Hgb 12.4 L, Hct 37.4 L, Plt Count 189 - Problems (1) Pleural effusion Current Visit: Yes Status: Acute Plan: Patient is 88 years of age admitted with progressive dyspnea bilateral pleural effusions right worse than left no evidence of sepsis was likely he has worsening of his diastolic dysfunction continue with Lasix I suggest adding some spironolactone vital signs are stable check room air pulse ox patient is anti coagulated consider using spironolactone on daily basis with p.r.n. doses of Lasix no indication for thoracentesis right now labs reviewed patient's BNP is significantly elevated check room air pulse ox
[2019-04-22] MEDS: SPIRONOLACTONE 25 MG TABLET PO SCH ×2 (11:09→20:50)
--- NOTE | 2019-04-22 16:50 | PN ---
Date of Progress Note: 04/22/2019 Subjective: Patient was seen this morning for followup. He was sleeping. was present with him at bedside. reported that the patient slept well last night. Did not have any shortness of br eath during nighttime. Objective: Vital Signs: Reviewed. HEENT: Unremarkable. Lungs: Clear to auscultation except diminished air entry in lower lung farrar, unchanged from yester day. Heart: Sounds normal. Abdomen: Soft. Bowel sounds normal. No guarding, rigidity, tenderness, or distention. Extremities: No leg edema. Laboratory Data: White count 6.2, hemoglobin 11.3, platelets 153. Sodium 146, potassium 3.5, chlori de 112, bicarb 27, BUN 22, creatinine 1.18, glucose 88. Magnesium 2.4. Impression: 1.Pleural effusion. 2.Congestive heart failure, chronic, diastolic, with acute exacerbation. 3.Atrial fibrillation. Plan: We will continue current medication. Continue current diuretic therapy. We will get a CAT sc an of the chest done without contrast today and details were discussed as well. I will see him petty rodriguez. CARMINE/MODL Voice ID: [id number] Report ID: [id number]
[2019-04-22] MEDS ORDERED: RIVAROXABAN 20 MG TABLET PO SCH (17:00)
[2019-04-22] MEDS: ATORVASTATIN 10 MG TAB PO SCH (21:00)
[2019-04-22] MEDS: GABAPENTIN 300 MG CAP PO SCH (21:00)
[2019-04-23] MEDS: LEVOTHYROXINE SOD 0.075 MG TAB PO SCH (06:00)
[2019-04-23 06:18] LABS: Potassium 3.5 mmol/L (3.5-5.1)
[2019-04-23] MEDS ORDERED: POTASSIUM CL SA 10 MEQ TAB PO ONE (08:00)
[2019-04-23] MEDS: MULTIVIT W/ MINERAL TAB PO SCH (08:50)
[2019-04-23] MEDS: METOPROLOL TAR 25 MG TAB PO SCH ×2 (08:50→21:30)
[2019-04-23] MEDS: CYANOCOBALAMIN 1,000 MCG TAB PO SCH (08:51)
[2019-04-23] MEDS: OCUVITE (VIT A,C & E/LUTEIN/MINERAL) TABLET PO SCH (08:51)
[2019-04-23] MEDS: SPIRONOLACTONE 25 MG TABLET PO SCH ×2 (08:51→21:28)
[2019-04-23] MEDS: FUROSEMIDE 40 MG/4 ML VIAL IV SCH ×2 (08:57→17:41)
[2019-04-23] MEDS: HOME MED 1 EA UNK (Memantine Hcl [Namenda Xr] 28 MG) PO SCH (08:58)
[2019-04-23] MEDS: HOME MED 1 EA UNK (Galantamine Hbr [Galantamine Er] 12 MG) PO SCH (08:58)
--- NOTE | 2019-04-23 13:27 | RAD REPORT ---
EXAM DESCRIPTION: RAD - Chest Pa And Lat (2 Views) - 04/23/2019 1:22 pm CLINICAL HISTORY: pleural effusion, CHF Chest pain. COMPARISON: Chest Pa And Lat (2 Views) dated 04/21/2019; Chest Pa And Lat (2 Views) dated 04/11/2019; Chest Pa And Lat (2 Views) dated 04/10/2019; Chest Pa And Lat (2 Views) dated 04/08/2019; Thorax Wo Co n dated 04/22/2019 FINDINGS: Small left and moderate right pleural effusion or noted. Lungs are mildly emphysematous. T he heart is moderately enlarged. No displaced fractures. IMPRESSION: Stable chest since 04/21/2019.
--- NOTE | 2019-04-23 14:23 | PN ---
Mr. Mcnulty seems to have done well with diuresis. He is more alert, breathing easily. No pulmonary crackles. He remains in atrial fibrillation. I believe he is stable enough to be discharged home. DINO/BLAISE Voice ID: [id number] Report ID: [id number]
[2019-04-23] MEDS ORDERED: RIVAROXABAN 20 MG PO SCH (17:00)
[2019-04-23 17:52] VITALS: O2SAT 92
--- NOTE | 2019-04-23 18:36 | PN ---
Date of Progress Note: 04/23/2019 Subjective: Patient was seen this morning for followup. No new complaints or problems reported by t he patient. He was feeling better. was at bedside. No shortness of breath during night. Objective: Vital Signs: Reviewed. HEENT: Unremarkable. Lungs: Bilateral good equal air entry. Presence of rales in left lung base and diminished air entry in the right lower lung region. Heart: Sounds normal. Abdomen: Soft. Bowel sounds normal. No guarding, rigidity, tenderness, or distention. Extremities: No leg edema. Laboratory Data: Sodium 145, potassium 3.5, chloride 111, bicarb 29, BUN 22, creatinine 1.13, glucos e 84. Impression: 1.Congestive heart failure, chronic, diastolic, with acute exacerbation. 2.Pleural effusion. 3.Dementia. Plan: We will continue current medications. Continue current Lasix. We will repeat chest x-ray and blood work tomorrow morning. Possible discharge to go home tomorrow. Physical therapy was consulte d to help ambulate the patient. Details were discussed with the patient's . CARMINE/MODL Voice ID: [id number] Report ID: [id number]
[2019-04-23] MEDS ORDERED: GABAPENTIN 300 MG PO SCH (21:00)
[2019-04-23] MEDS: GALANTAMINE HBR 12 MG PO SCH (21:28)
[2019-04-23] MEDS: ATORVASTATIN 10 MG TAB PO SCH (21:37)
[2019-04-24] MEDS ORDERED: LEVOTHYROXINE 0.075 MG PO SCH (06:30)
[2019-04-24] MEDS: SPIRONOLACTONE 25 MG TABLET PO SCH (08:16)
[2019-04-24] MEDS: FUROSEMIDE 40 MG/4 ML VIAL IV SCH (08:16)
[2019-04-24 08:21] VITALS: BP 163/75; TEMP 97.8
[2019-04-24] MEDS: GALANTAMINE HBR 12 MG PO SCH (08:21)
[2019-04-24] MEDS: METOPROLOL TAR 25 MG TAB PO SCH (08:22)
[2019-04-24] MEDS: CYANOCOBALAMIN 1,000 MCG TAB PO SCH (08:23)
[2019-04-24] MEDS: OCUVITE (VIT A,C & E/LUTEIN/MINERAL) TABLET PO SCH (08:23)
[2019-04-24] MEDS ORDERED: MULTIVITAMIN PO SCH (09:00)
[2019-04-24] MEDS ORDERED: MEMANTINE HCL 28 MG PO SCH ×2 (09:00)
[2019-04-24] MEDS ORDERED: [UNRECOGNIZED DRUG - OTHER] PO SCH (09:00)
--- NOTE | 2019-04-25 01:44 | DS ---
Date of Discharge: 04/24/2019 Disposition: Discharged to go home. Physical Examination: HEENT: Unremarkable. Lungs: Clear to auscultation. Diminished air entry in the right basal lung region. Not using acces zenaida muscles of respiration. Heart: Sounds normal. Abdomen: Soft. Bowel sounds normal. No guarding, rigidity, tenderness, or distention. Extremities: No leg edema. Discharge Diagnoses: 1.Congestive heart failure, chronic, diastolic, with acute exacerbation. 2.Chronic atrial fibrillation. 3.Pleural effusion. 4.Senile dementia. 5.Hypertension. 6.Chronic anticoagulation therapy. 7.Hyperlipidemia. 8.Hypothyroidism. 9.Diverticulosis. Hospital Course: An 88-year-old pleasant male patient, admitted to the hospital with shortness of br eath complaints. Please see dictated H and P for more information. Patient was evaluated at the off ice. Decision was made to admit him to hospital for further management of this problem. The patient had a recent echocardiogram done on outpatient basis about approximately 3 weeks ago with his cardio logist, Dr. Dawkins and it showed normal ejection fraction. During this hospitalization, we did requ est consultation from social media editor and pulmonary physician and Dr. Rodriguez and Dr. Ballard from [facility] ology and Pulmonary Service respectively saw the patient. Diuretic therapy in form of IV Lasix was nettie hurst. Dr. Ballard added spironolactone and no further intervention was suggested by either one of t he physician. The patient's condition has improved. He does not have any PND or orthopnea and overa ll he feels better, looks lot better today compared to yesterday and day before yesterday. Patient w ill be discharged to go home in stable medical condition with followup at my office this coming week on . Discharge Medications And Instructions: Continue prior home medication except stop furosemide 20 mg dose and start furosemide 40 mg 1 tablet by mouth 2 times a day and spironolactone on 04/28/2019. Laboratory Data: Upon admission, white count was 5.9, hemoglobin 11.4, platelets 189, sodium 144, po tassium 4.7, chloride 110, bicarb 28, BUN 24, creatinine 1.37, glucose 141, magnesium 2.5. Liver fun ction tests unremarkable except SGOT of 45. ProBNP 54194. Chest x-ray showed moderate right-sided a nd small left-sided pleural effusion. There were also some changes of congestive heart failure on th e chest x-ray. Repeat chest x-ray shows findings are stable. CARMINE/MODL Voice ID: [id number] Report ID: [id number]
== END 2019-04-24 10:41 | disposition home or self-care (01) | DRG 292 ==
LOC: 4TH 15:31
PROVIDERS: ADMIT Internal Medicine; ATTEND Internal Medicine
DX: I11.0 Hypertensive heart disease with heart failure (principal); I48.20 Chronic atrial fibrillation, unspecified; I50.33 Acute on chronic diastolic (congestive) heart failure; Z79.01 Long term (current) use of anticoagulants; F03.90 Unspecified dementia, unspecified severity, without behavioral disturbance, psychotic disturbance, mood disturbance, and anxiety; E78.5 Hyperlipidemia, unspecified; E03.9 Hypothyroidism, unspecified; K57.90 Diverticulosis of intestine, part unspecified, without perforation or abscess without bleeding; I25.10 Atherosclerotic heart disease of native coronary artery without angina pectoris
CPT/HCPCS: 36415; 71046; 71250; 80048; 80053; 81001; 83735; 83880; 85025; 97112; 97116; 97161; J1940

== ENCOUNTER 2020-07-01 10:16 | Emergency (ER) | payer OTHER ==
--- OUTSIDE RECORDS SUMMARY | 2020-07-01 10:17 | XMS REPORT | Continuity of Care Document ---
:1930 Author Organization [facility] t Address [address] [place] [address] Care Team Providers Name Role Phone Unavailable Unavailable Unavailable Problems Condition Condition Condition Status Onset Resolution Last Treating Co mments Source Name Details Category Date Date Treatment Clinician Date Contusion Contusion Diagnosis Active [facility] right [facility], [facility] initial initial l encounter encounter Outp ati ent Clinics Pain, Pain, Diagnosis Active [facility] Allergies, Adverse Reactions, Alerts This patient has no known allergies or adverse reactions. Medications Ordered Filled Start Stop Current Ordering Indication Dosage Frequency Signature Comments Components Source Medication Medication Date Date Medication? Clinician (SIG) Name Name Ocuvite Eye Ocuvite Eye Yes Garret as [facility] directed [facility] - Formula Formula [facility] ent Clinics Vitamin Vitamin Yes Garret as [facility] B-12 B-12 [facility] directed [facility] Amiodarone Amiodarone Yes Garret TAKE [address] [facility] HCl HCl [place] TABLET BY [facility] - MOUTH [facility] EVERY DAY l Outpati ent Clinics Hemocyte Hemocyte Yes Gar[facility] not [facility] defined [facility] Galantamine Galantamine Yes Garret TAKE [address] [facility] Hydrobromid Hydrobromid [place] TABLET BY [facility] - e e MOUTH [facility] TWICE A l DAY Outpati ent Clinics Centrum Centrum Yes Garret as [facility] Silver Silver [facility] directed [facility] Xarelto Xarelto Yes Garret [address] [facility] [place] with food [facility]ics Acetaminoph Acetaminoph Yes Garret not [facility] en-Codeine en-Codeine [facility] defined [facility] - #3 #3 [facility] Levothyroxi Levothyroxi Yes Garret not [facility] ne Sodium ne Sodium [facility] Namenda XR Namenda XR Yes Garret not [facility] defined [facility] ent Clinics Pravastatin Pravastatin Yes Garret TAKE [address] [facility] Sodium Sodium [place] TABLET BY [facility] - MOUTH [facility] EVERY DAY l [facility] Clinics Furosemide Furosemide Yes Garret TAKE [address] [facility] [place] TABLET BY [facility] - MOUTH [facility] EVERY DAY l [facility] ent Clinics Procedures This patient has no known procedures. Encounters Start End Encounter Admission Attending Care Care Encounter Source Date/Time Date/Time Type Type Clinicians Facility Department ID 2018-03-10 2018-03-10 [facility] [id number] [facility] 13:30:00 13:30:00 [facility] Results This patient has no known results.
[2020-07-01 11:03] LABS: Absolute Lymphocytes (CBC) 0.6 K/uL (0.7-4.9); Lymphocytes % 6.1 % (15.3-44.8); MPV 9.6 fL (7.6-11.3); RBC Red Blood Cell Count 3.57 M/uL (4.33-5.43)
[2020-07-01] MEDS ORDERED: NA CHLORIDE 0.9% 500 ML ONE (11:10)
[2020-07-01] MEDS ORDERED: IBUPROFEN 400 MG TAB ONE (11:10)
[2020-07-01 11:15] LABS: Potassium 3.1 mmol/L (3.5-5.1)
--- NOTE | 2020-07-01 11:22 | RAD REPORT ---
EXAM DESCRIPTION: RAD - Chest Single View - 07/01/2020 11:03 am CLINICAL HISTORY: fever, COPD COMPARISON: Two view chest April 2019 TECHNIQUE: AP portable chest image was obtained 07/01/2020 11:03 am . FINDINGS: Lungs are fibrotic with the interstitial pattern not substantially different from comparis on. Severity of chronic disease could mask early interstitial edema or infiltrate. No alveolar or air space consolidations seen. Costophrenic angle blunting is less pronounced than prior imaging. Heart size is normal range. Pulmonary vasculature within normal limits. No pneumothorax. No acute bony abno rmality seen. No acute aortic findings suspected. IMPRESSION: Chronic interstitial lung disease not substantially different from comparison. No convincing findings for COVID-19 pneumonia. If this is a clinical concern, CT imaging could be use d for more sensitive lung parenchymal assessment.
[2020-07-01 11:43] LABS: Blood Morphology Comment NOT SEEN (NOT SEEN); Platelet Estimate ADEQ; White Blood Cell Scan OK (OK)
[2020-07-01 12:16] LABS: SARS-COV-2 RT PCR NEGATIVE (NEGATIVE)
[2020-07-01 14:33] LABS: Urine Blood 3+ (NEG); Urine Glucose NEGATIVE (NEG); Urine Protein 1+ (NEG); Urine Specific Gravity 1.015 (1.005-1.030); Urine pH 5.5 (5.0-7.0)
--- NOTE | 2020-07-01 14:43 | ER ---
Nurse's Notes [facility] Name: Yash Mcnulty Age: 89 yrs Sex: Male : 1930 Arrival Date: 07/01/2020 Time: 10:22 Bed 18 Private MD: Diagnosis: Fever, unspecified Presentation: 07/01 10:23 Chief complaint: EMS states: "89 y with fever that started today. reported a runny jd3 nose, but other than that he is not reporting anything wrong. called for fever at 103. we got 101 on the truck and gave 1 gram of Tylenol. history of A-fib so heart rates have been anywhere from 90-150.". Coronavirus screen: fever, Client presents with at least one sign or symptom that may indicate coronavirus-19. Standard/surgical mask placed on the client. Provider contacted for isolation considerations. Ebola Screen: Patient negative for fever greater than or equal to 101.5 degrees Fahrenheit, and additional compatible Ebola Virus Disease symptoms. Initial Sepsis Screen: Does the patient meet any 2 criteria? Temp <36.0*C (96.8*F)) or > 38.3*C (100.9*F). HR > 90 bpm. Yes Does the patient have a suspected source of infection? No. Patient's initial sepsis screen is negative. Risk Assessment: Do you want to hurt yourself or someone else? Patient reports no desire to harm self or others. Onset of symptoms was July 01, 2020. 10:23 [facility] Of Ar[facility] jd3 10:23 Acuity: HAYDE 2 jd3 Historical: - Allergies: 10:28 No Known Allergies; jd3 - Immunization history:: Adult Immunizations up to date. - Social history:: Smoking status: Patient denies any tobacco usage or history of. - Family history:: not pertinent. - Hospitalizations: : No recent hospitalization is reported. Screenin:35 Abuse screen: Denies threats or abuse. Nutritional screening: No deficits noted. jd3 Tuberculosis screening: No symptoms or risk factors identified. Fall Risk Ambulatory Aid- None/Bed Rest/Nurse Assist (0 pts). Gait- Normal/Bed Rest/Wheelchair (0 pts) Mental Status- Oriented to own ability (0 pts). Total Arteaga Fall Scale indicates No Risk (0-24 pts). Assessment: 10:23 General: Appears in no apparent distress. comfortable, Behavior is calm, cooperative, jd3 appropriate for age. Pain: Denies pain. Neuro: Level of Consciousness is awake, alert, obeys commands, Oriented to person, place. Cardiovascular: Denies chest pain, Capillary refill < 3 seconds Patient's skin is warm and dry. Rhythm is atrial fibrillation. Respiratory: Airway is patent Respiratory effort is even, unlabored, Respiratory pattern is regular, symmetrical, Denies cough, shortness of breath. GI: No signs and/or symptoms were reported involving the gastrointestinal system. Patient currently denies constipation, diarrhea, nausea, vomiting. : No signs and/or symptoms were reported regarding the genitourinary system. EENT: Reports nasal congestion. Derm: Skin is intact, Skin is dry, Skin is normal, Skin temperature is warm. Musculoskeletal: Circulation, motion, and sensation intact. Range of motion: intact in all extremities. 11:26 Reassessment: Patient appears in no apparent distress at this time. No changes from jd3 previously documented assessment. Patient and/or family updated on plan of care and expected duration. Pain level reassessed. Patient denies pain at this time. 12:35 Reassessment: Patient appears in no apparent distress at this time. No changes from jd3 previously documented assessment. Patient and/or family updated on plan of care and expected duration. Pain level reassessed. Patient denies pain at this time. 13:26 Reassessment: Patient appears in no apparent distress at this time. No changes from jd3 previously documented assessment. Patient and/or family updated on plan of care and expected duration. Pain level reassessed. Patient denies pain at this time. 14:33 Reassessment: Patient appears in no apparent distress at this time. No changes from jd3 previously documented assessment. Patient and/or family updated on plan of care and expected duration. Pain level reassessed. Patient denies pain at this time. 15:39 Reassessment: Patient appears in no apparent distress at this time. No changes from jd3 previously documented assessment. Patient and/or family updated on plan of care and expected duration. Pain level reassessed. awaiting for discharge. 16:40 Reassessment: Patient appears in no apparent distress at this time. Patient and/or jd3 family updated on plan of care and expected duration. Pain level reassessed. pt denies pain or discomfort at this time, awaiting ride home. A\\T\\O X 2. even and unlabored respirations. Patient denies pain at this time. Vital Signs: 10:26 BP 129 / 80; Pulse 117; Resp 19 A; Temp 101.4(O); Pulse Ox 97% on R/A; Weight 77.11 kg jd3 (R); Height 6 ft. 2 in. (187.96 cm) (R); Pain 5/10; 11:24 BP 108 / 67; Pulse 103; Resp 19 S; Pulse Ox 96% on R/A; jd3 12:34 BP 127 / 70; Pulse 89; Resp 17 S; Temp 97.4(O); Pulse Ox 97% on R/A; jd3 13:27 BP 119 / 77; Pulse 107; Resp 20 S; Pulse Ox 97% on R/A; jd3 14:34 BP 104 / 70; Pulse 94; Resp 16 S; Pulse Ox 98% on R/A; jd3 15:39 BP 109 / 54; Pulse 76; Resp 17 S; Pulse Ox 97% on R/A; jd3 10:26 Body Mass Index 21.83 (77.11 kg, 187.96 cm) jd3 ED Course: 10:22 Patient arrived in ED. rn 10:23 Dong Leslie MD is Attending Physician. rn 10:23 Blu Lin RN is Primary Nurse. jd3 10:26 Triage completed. jd3 10:27 Arm band placed on. jd3 11:02 Inserted saline lock: 20 gauge in right antecubital area, using aseptic technique. jd3 Blood collected. 11:03 XRAY Chest (1 view) In Process Unspecified. EDMS 12:35 Patient has correct armband on for positive identification. Bed in low position. Call jd3 light in reach. Side rails up X 1. Adult w/ patient. monitor worker on. Pulse ox on. NIBP on. 14:41 Rayray Jiménez MD is Referral Physician. rn 15:39 No provider procedures requiring assistance completed. jd3 16:54 IV discontinued, intact, bleeding controlled, No redness/swelling at site. Pressure jd3 dressing applied. Administered Medications: 11:02 Drug: Motrin 800 mg Route: PO; jd3 12:00 Follow up: Response: No adverse reaction jd3 11:02 Drug: NS 0.9% 500 ml Route: IV; Rate: bolus; Site: right antecubital; jd3 12:00 Follow up: Response: No adverse reaction; IV Status: Completed infusion; IV Intake: jd3 500ml 15:10 Drug: Rocephin 1 grams Route: IV; Rate: calculated rate; Site: right antecubital; jd3 16:10 Follow up: Response: No adverse reaction; IV Status: Completed infusion; IV Intake: [id number] Intake: 12:00 IV: 500ml; Total: 500ml. jd3 16:10 IV: 10ml; Total: 510ml. jd3 Outcome: 14:42 Discharge ordered by . rn 15:39 Condition: stable jd3 16:54 Discharged to home via wheelchair, with family. jd3 16:54 Discharge instructions given to patient, family, Instructed on discharge instructions, follow up and referral plans. medication usage, Demonstrated understanding of instructions, follow-up care, medications, Prescriptions given X 1. 16:55 Patient left the ED. zb Signatures: Dispatcher [employer] EDMS Dong Leslie MD MD rn Davies, Jonathon, RN RN jd3 Brown, Zipporah, RN RN zb Corrections: (The following items were deleted from the chart) 11:56 11:26 Reassessment: Patient appears in no apparent distress at this time. Patient jd3 and/or family updated on plan of care and expected duration. Pain level reassessed. Patient is alert, oriented x 3, equal unlabored respirations, skin warm/dry/pink. jd3 12:50 10:23 Acuity: HAYDE 3 jd3 j
--- NOTE | 2020-07-01 14:43 | EDPHYS ---
Physician Documentation [facility] Name: Yash Mcnulty Age: 89 yrs Sex: Male : 1930 Arrival Date: 07/01/2020 Time: 10:22 Bed 18 Private MD: ED Physician Dong Leslie HPI: 07/01 10:25 This 89 yrs old Male presents to ER via Unassigned with complaints of fever, rn congestion. 10:25 The patient reports fever, that was measured at 103 degrees Fahrenheit. Onset: The rn symptoms/episode began/occurred this morning. Modifying factors: there are no obvious modifying factors. Associated signs and symptoms: Pertinent positives: runny nose, Pertinent negatives: abdominal pain, altered mental status, backache, diarrhea, pulling at ears, earache, headache, hemoptysis, skin rash, shortness of breath, sore throat, swelling, vomiting. Severity of symptoms: At their worst the symptoms were mild in the emergency department the symptoms are unchanged. The patient has not experienced similar symptoms in the past. The patient has not recently seen a physician. Reports fever to 103 this AM, EMS got 101, reports assoc nasal congestion but otherwise feels ok. made him call 911. Denies sob or cough/headache/stiff neck/sore throat/abd pain/vomiting/diarrhea/skin rash/urinary symptoms. . Historical: - Allergies: 10:28 No Known Allergies; jd3 - Immunization history:: Adult Immunizations up to date. - Social history:: Smoking status: Patient denies any tobacco usage or history of. - Family history:: not pertinent. - Hospitalizations: : No recent hospitalization is reported. ROS: 10:25 Constitutional: + fever Eyes: Negative for injury, pain, redness, and discharge, ENT: + rn runny nose Neck: Negative for injury, pain, and swelling, Cardiovascular: Negative for chest pain, palpitations, and edema, Respiratory: Negative for shortness of breath, cough, wheezing, and pleuritic chest pain, Abdomen/GI: Negative for abdominal pain, nausea, vomiting, diarrhea, and constipation, Back: Negative for injury and pain, : Negative for injury, bleeding, discharge, and swelling, MS/Extremity: Negative for injury and deformity, Skin: Negative for injury, rash, and discoloration, Neuro: Negative for headache, numbness, tingling, and seizure. Exam: 10:25 Constitutional: This is a well developed, well nourished patient who is awake, alert, rn and in no acute distress. Head/Face: Normocephalic, atraumatic. Eyes: No erythema or drainage ENT: dry MM, no stridor Neck: Trachea midline, no thyromegaly or masses palpated, and no cervical lymphadenopathy. Supple, full range of motion without nuchal rigidity, or vertebral point tenderness. No Meningismus. Cardiovascular: Tachycardic, irregular Respiratory: No increased work of breathing, no retractions or nasal flaring. Abdomen/GI: soft, non-tender Skin: Warm, dry, no cellulitis MS/ Extremity: Pulses equal, no cyanosis. Neuro: Awake and alert, GCS 15, constantly joking, oriented to person, place, time, and situation. Cranial nerves II-XII grossly intact. Motor strength 5/5 in all extremities. Sensory grossly intact. 11:28 ECG was reviewed by the Attending Physician. rn Vital Signs: 10:26 BP 129 / 80; Pulse 117; Resp 19 A; Temp 101.4(O); Pulse Ox 97% on R/A; Weight 77.11 kg jd3 (R); Height 6 ft. 2 in. (187.96 cm) (R); Pain 5/10; 11:24 BP 108 / 67; Pulse 103; Resp 19 S; Pulse Ox 96% on R/A; jd3 12:34 BP 127 / 70; Pulse 89; Resp 17 S; Temp 97.4(O); Pulse Ox 97% on R/A; jd3 13:27 BP 119 / 77; Pulse 107; Resp 20 S; Pulse Ox 97% on R/A; jd3 14:34 BP 104 / 70; Pulse 94; Resp 16 S; Pulse Ox 98% on R/A; jd3 15:39 BP 109 / 54; Pulse 76; Resp 17 S; Pulse Ox 97% on R/A; jd3 10:26 Body Mass Index 21.83 (77.11 kg, 187.96 cm) jd3 MDM: 10:23 Patient medically screened. rn 14:38 Differential diagnosis: viral Infection, bacterial infection, URI, bronchitis, rn pneumonia UTI. Differential diagnosis: COVID. Data reviewed: vital signs, nurses notes. Counseling: I had a detailed discussion with the patient and/or guardian regarding: the historical points, exam findings, and any diagnostic results supporting the discharge/admit diagnosis, lab results, radiology results, the need for outpatient follow up, to return to the emergency department if symptoms worsen or persist or if there are any questions or concerns that arise at home. Response to treatment: the patient's symptoms have markedly improved after treatment, and as a result, I will discharge patient. Special discussion: I discussed with the patient/guardian in detail that at this point there is no indication for admission to the hospital. It is understood, however, that if the symptoms persist or worsen the patient needs to return immediately for re-evaluation. Based on the history and exam findings, there is no indication for further emergent testing or inpatient evaluation. I discussed with the patient/guardian the need to see the primary care provider for further evaluation of the symptoms. ED course: Pt 's fever improved, down to 97.4, no oxygen requirement, denies any symptoms, neg flu/strep/COVID, neg cxr, neg Urine, benign abd exam. Possibly sinus infection. Spoke with , denies any AMS or other symptoms, reports ate whataburger last night and good appetite. Will dc home with abx and will call Dr. Jiménez tomorrow, explained to how to manage fever. states only called 911 for fever of 103 and didn't know what to do. . 07/01 10:24 Order name: CBC with Diff rn 07/01 10:24 Order name: Basic Metabolic Panel rn 07/01 10:24 Order name: Procalcitonin rn 07/01 10:24 Order name: Blood Culture Adult (2) rn 07/01 10:24 Order name: Strep; Complete Time: 11:46 rn 07/01 10:24 Order name: Urine Culture rn 07/01 10:24 Order name: Urine Microscopic Only rn 07/01 10:25 Order name: CBC with Automated Diff; Complete Time: 11:46 EDCA 07/01 10:25 Order name: Basic Metabolic Panel; Complete Time: 11:28 EDMS 07/01 10:25 Order name: Procalcitonin; Complete Time: 12:27 EDMS 07/01 10:25 Order name: Blood Culture EDCA 07/01 11:05 Order name: CBC Smear Scan; Complete Time: 11:46 EDMS 07/01 10:24 Order name: IV Start; Complete Time: 10:53 rn 07/01 10:24 Order name: XRAY Chest (1 view); Complete Time: 11:28 rn 07/01 10:25 Order name: EKG; Complete Time: 10:25 rn 07/01 10:25 Order name: EKG - Nurse/Tech; Complete Time: 11:24 rn 07/01 11:36 Order name: Throat Culture [facility] 07/01 12:16 Order name: COVID-19/FLU A+B; Complete Time: 12:27 [facility] 07/01 14:26 Order name: Urine Dipstick--Ancillary (enter results); Complete Time: 14:42 eb EC: Rate is 104 beats/min. Rhythm is irregularly irregular. Left axis deviation noted. QRS rn is positive in lead I and negative in lead aVF. QRS interval is normal. QT interval is normal. No Q waves. T waves are Normal. No ST changes noted. Clinical impression: Atrial Fibrillation. Interpreted by me. Reviewed by me. Administered Medications: 11:02 Drug: Motrin 800 mg Route: PO; jd3 12:00 Follow up: Response: No adverse reaction jd3 11:02 Drug: NS 0.9% 500 ml Route: IV; Rate: bolus; Site: right antecubital; jd3 12:00 Follow up: Response: No adverse reaction; IV Status: Completed infusion; IV Intake: jd3 500ml 15:10 Drug: Rocephin 1 grams Route: IV; Rate: calculated rate; Site: right antecubital; jd3 16:10 Follow up: Response: No adverse reaction; IV Status: Completed infusion; IV Intake: [id number] Disposition: 07/01/20 14:42 Discharged to Home. Impression: Fever, unspecified. - Condition is Stable. - Discharge Instructions: Fever, Adult. - Prescriptions for Augmentin 875- 125 mg Oral Tablet - take 1 tablet by ORAL route every 12 hours for 10 days; 20 tablet. - Medication Reconciliation Form, Thank You Letter, Antibiotic Education, Prescription Opioid Use form. - Follow up: Rayray Jiménez MD; When: Tomorrow; Reason: Recheck today's complaints, Re-evaluation by your physician. - Problem is new. - Symptoms have improved. Signatures: Dispatcher [employer] EDCA Dong Leslie MD MD rn Davies, Jonathon RN Rebecca Brooks RN RN zb Corrections: (The following items were deleted from the chart) 10:28 10:25 Constitutional: + fever Eyes: Negative for injury, pain, redness, and discharge, all around patternmaker: + runny nose Neck: Negative for injury, pain, and swelling, Cardiovascular: Negative for chest pain, palpitations, and edema, Respiratory: Negative for shortness of breath, cough, wheezing, and pleuritic chest pain, Abdomen/GI: Negative for abdominal pain, nausea, vomiting, diarrhea, and constipation, MS/Extremity: Negative for injury and deformity, Skin: Negative for injury, rash, and discoloration, Neuro: Negative for headache, numbness, tingling, and seizure, rn 11:18 10:25 CORONAVIRUS+MR.LAB.BRZ ordered. EDCA EDMS 11:19 10:25 Influenza Screen (A \T\ B)+BA.LAB.BRZ ordered. EDCA EDMS 16:55 14:42 07/01/2020 14:42 Discharged to Home. Impression: Fever, unspecified. Condition is zb Stable. Forms are Medication Reconciliation Form, Thank You Letter, Antibiotic Education, Prescription Opioid Use. Follow up: A Jessy; When: Tomorrow; Reason: Recheck today's complaints, Re-evaluation by your physician. Problem is new. Symptoms have improved. rn
[2020-07-01 15:03] LABS: Urine Bacteria <20 /HPF (NONE SEEN); Urine RBC TNTC /HPF (NONE SEEN)
[2020-07-01] MEDS ORDERED: CEFTRIAXONE/SWI 1gm 1 GM/10 ML SYR ONE (15:10)
[2020-07-01 17:02] VITALS: TEMP 97.4
[2020-07-01 17:06] VITALS: BP 109/54; O2SAT 97
--- NOTE | 2020-07-02 07:32 | EKG ---
Test Date: 2020-07-01 Test Time: 11:19:49 Cupola Charger Insulation: LAURA MEASUREMENT RESULTS: Intervals: Rate: 104 MT: QRSD: 94 QT: 368 QTc: 483 [place]: P: MT: QRS: -57 T: 81 INTERPRETIVE STATEMENTS: Atrial fibrillation with rapid ventricular response Left axis deviation Incomplete right bundle branch block Nonspecific ST abnormality, probably digitalis effect Abnormal ECG Compared to ECG 04/05/2019 16:34:12 Left-axis deviation now present Incomplete right bundle-branch block now present Prolonged QT interval no longer present ST (T wave) deviation still present Electronically Signed On 07-02-20 07:30:07 PULP ROLLER by Jose Dawkins
== END 2020-07-01 16:55 | disposition home or self-care (01) ==
LOC: ER 10:16
DX: R50.9 Fever, unspecified (principal); Z20.822 Contact with and (suspected) exposure to COVID-19
CPT/HCPCS: 96365; 96361; 93005; 87040 ×2; 87070; 87088; 85025; 87086; 80048; 36415; 87205 ×4; 87081; 84145; 0240U; 71045; 99285; J0696; J7040; 81003; 81015

== ENCOUNTER 2020-07-01 17:57 | Emergency (ER) | payer OTHER ==
--- OUTSIDE RECORDS SUMMARY | 2020-07-01 17:58 | XMS REPORT | Continuity of Care Document ---
:1930 Author Organization [facility] t Address [address] [place] [address] Care Team Providers Name Role Phone Unavailable [...] - knee, knee, [facility] right [facility] l [facility] Allergies, Adverse Reactions, Alerts This [...] B-12 [facility] directed [facility] Amiodarone Amiodarone Yes Garret TAKE [...] defined [facility] Levothyroxi Levothyroxi Yes Garret not [facility] ne Sodium ne Sodium [facility]avez defined [facility] Clinics Namenda XR Namenda XR Yes Garret not [facility] defined [facility] ent Clinics Pravastatin Pravastatin Yes Garret TAKE [address] [facility] Sodium Sodium [facility]avez TABLET BY [facility] Furosemide Furosemide Yes Garret TAKE [address] [facility] TABLET BY [facility] Procedures This patient has no known procedures. Encounters Start End Encounter Admission Attending Care Care Encounter Source Date/Time Date/Time Type Type Clinicians Facility Department ID 2018-03-10 2018-03-10 [facility] [id number] [facility] [address] 13:30:00 13:30:00 [facility] ent [facility] Results This patient has no known results.
--- NOTE | 2020-07-01 20:51 | RAD REPORT ---
EXAM DESCRIPTION: CT - Stone Protocol - 07/01/2020 8:38 pm CLINICAL HISTORY: HEMATURIA COMPARISON: CT ABD PELVIS W CONTRAST dated 10/15/2012 TECHNIQUE: Axial 3 mm thick images were obtained without oral or IV contrast. The [id number] span s the entirety of the system including uppermost abdomen and lung bases. All CT scans are performed using dose optimization technique as appropriate and may include automated exposure control or mA/KV adjustment according to patient size. FINDINGS: No hydronephrosis is present and no obstructing ureteral calculi. No suspicious renal mass es. Isodense masses and pyelonephritis are not excluded on a stone protocol CT scan. No significant a drenal finding. A 3.6 centimeter exophytic upper pole right renal mass shows fluid attenuation. This cyst has enlarged since 2012 but continues to show benign imaging characteristics. Urinary bladder is contracted limiting assessment. No bladder calculi or gross evidence for mass. Cystitis or small hero dder wall mass could be obscured by the contracted state as well is by the spray artifact from the ri ght femur hardware. Imaged portions of the liver, spleen and pancreas show no suspicious findings on non-contrast imaging . No gallbladder or biliary tree abnormality identified. Gallstones can be occult on CT imaging. No acute bowel finding seen. Patient has prominent sigmoid diverticulosis without diverticulitis find ings. No mass or bulky lymphadenopathy. There is laxity of the right lower quadrant abdominal wall without defects seen. Left inguinal surgical clips are present. No free air, free fluid or inflammatory stran ding. Advanced disc and bony degenerative changes are present. Scoliosis changes are seen. Degenerative josi nges are most pronounced at L4-5 and L5-S1. Patient has a moderately large right pleural effusion that is only partially imaged. Trace amount of pleural fluid noted on the left. Cardiomegaly is present without pericardial effusion. IMPRESSION: No hydronephrosis, obstructing calculus or acute finding. Isodense masses and pyelonephritis are not excluded on stone protocol technique.Contracted state of t he urinary bladder limits assessment. Cystitis or small bladder masses cannot be excluded. No acute GI finding. Moderately large right pleural effusion with trace left pleural effusion. Cardiomegaly is present.
[2020-07-01 21:06] LABS: Absolute Lymphocytes (CBC) 0.8 K/uL (0.7-4.9); Basophils % 0.6 % (0-1.3); Hematocrit 30.1 % (39.6-49.0); Lymphocytes % 8.4 % (15.3-44.8); MPV 9.5 fL (7.6-11.3); Protime INR 1.99; RBC Red Blood Cell Count 3.47 M/uL (4.33-5.43)
[2020-07-01 21:14] LABS: Potassium 3.3 mmol/L (3.5-5.1)
[2020-07-01] MEDS ORDERED: AMOX/K CLAV 875 MG TAB ONE (22:37)
--- NOTE | 2020-07-02 00:23 | EDPHYS ---
Physician Documentation [facility] Name: Yash Mcnulty Age: 89 yrs Sex: Male : 1930 Arrival Date: 07/01/2020 Time: 17:59 Bed 24 Private MD: ED Physician Guy Gibson HPI: 07/01 21:03 This 89 yrs old Male presents to ER via Wheelchair with complaints of blood pm1 in urine. 21:03 The patient presents with urinary symptoms, Hematuria. Onset: The symptoms/episode pm1 began/occurred today. Associated signs and symptoms: Pertinent negatives: abdominal pain, dysuria. Severity of symptoms: in the emergency department the symptoms. The patient has been recently seen at the [facility] Emergency Department, Patient was seen in the ER earlier today for fever. For the evaluation at that time the patient's urine sample was collected with straight catheterization. Patient takes a NOAC. Patient got home and urinated. Family was alarmed that there was blood and returned to the ER for evaluation . Historical: - Allergies: 18:15 No Known Allergies; ca1 - PMHx: 18:15 Atrial Fib; CAD; Dementia; Depression; High Cholesterol; Hypothyroidism; ca1 - Immunization history:: Pneumococcal vaccine is up to date, Flu vaccine is up to date. - Social history:: Smoking status: Patient denies any tobacco usage or history of. ROS: 21:03 Eyes: Negative for injury, pain, redness, and discharge. pm1 21:03 Neck: Negative for injury, pain, and swelling, Cardiovascular: Negative for chest pain, palpitations, and edema, Respiratory: Negative for shortness of breath, cough, wheezing, and pleuritic chest pain, Abdomen/GI: Negative for abdominal pain, nausea, vomiting, diarrhea, and constipation, Back: Negative for injury and pain. 21:03 MS/Extremity: Negative for injury and deformity, Skin: Negative for injury, rash, and discoloration, Neuro: Negative for headache, weakness, numbness, tingling, and seizure. 21:03 Constitutional: Positive for fever, this AM. 21:03 ENT: Positive for nasal congestion, Negative for ear pain. 21:03 : Positive for hematuria, Negative for pain with urination. Exam: 21:03 Constitutional: This is a well developed, well nourished patient who is awake, alert, pm1 and in no acute distress. Head/Face: Normocephalic, atraumatic. 21:03 Back: No spinal tenderness. No costovertebral tenderness. Full range of motion. Skin: Warm, dry with normal turgor. Normal color with no rashes, no lesions, and no evidence of cellulitis. MS/ Extremity: Pulses equal, no cyanosis. Neurovascular intact. Full, normal range of motion. 21:03 Cardiovascular: Exam negative for acute changes, Rate: normal, Rhythm: regular, Pulses: no pulse deficits are appreciated. 21:03 Respiratory: Exam negative for acute changes, respiratory distress, shortness of breath. 21:03 Abdomen/GI: Inspection: abdomen appears normal, Palpation: abdomen is soft and non-tender, in all quadrants. 21:03 Neuro: Exam negative for acute changes, Orientation: is normal, Motor: is normal, moves all fours. Vital Signs: 18:11 BP 103 / 71; Pulse 103; Resp 16 S; Temp 97.9(TE); ca1 20:12 BP 108 / 73; Pulse 95; Resp 18; Pulse Ox 98% on R/A; Pain 0/10; fu 21:45 BP 98 / 69; Pulse 81; Resp 18; Pulse Ox 99% on R/A; Pain 0/10; fu 22:45 BP 106 / 69; Pulse 73; Resp 19; Temp 97.6; Pulse Ox 97% on R/A; Pain 0/10; fu 23:15 BP 104 / 76; Pulse 82; Resp 18; Pulse Ox 96% on R/A; Pain 0/10; fu 07/02 00:15 BP 122 / 80; Pulse 95; Resp 18; Pulse Ox 98% on R/A; Pain 0/10; fu MDM: 07/01 20:02 Patient medically screened. pm1 22:21 ED course: Family did not get opportunity to get prescription from prior visit today pm1 and requested first dose of Augmentin. Will administer in the ER. 23:58 Data reviewed: vital signs. pm1 07/02 00:20 Counseling: I had a detailed discussion with the patient and/or guardian regarding: the pm1 historical points, exam findings, and any diagnostic results supporting the discharge/admit diagnosis, lab results, radiology results, the need for outpatient follow up, a urologist, to return to the emergency department if symptoms worsen or persist or if there are any questions or concerns that arise at home. 00:20 ED course: Patient was able to urinate in the bedside commode. Tinge of blood present pm1 in the urine. Reason for extended duration of ER visit, family wanted to see if patient would be able to urinate. 07/01 20:22 Order name: CBC with Diff; Complete Time: 21:19 pm1 07/01 20:22 Order name: PT-INR; Complete Time: 21:19 pm1 07/01 20:22 Order name: CT Stone Protocol; Complete Time: 20:53 pm1 07/01 20:22 Order name: BMP; Complete Time: 21:19 pm1 07/01 20:23 Order name: IV Saline Lock; Complete Time: 20:54 pm1 Administered Medications: 07/01 22:27 Drug: Augmentin 875 mg Route: PO; fu 23:21 Follow up: Response: No adverse reaction fu Disposition: 07/02 07:12 Co-signature as Attending Physician, Guy Gibson MD. 7 Disposition: 07/02/20 00:22 Discharged to Home. Impression: Hematuria. - Condition is Stable. - Discharge Instructions: Hematuria, Adult. - Medication Reconciliation Form, Thank You Letter, Antibiotic Education, Prescription Opioid Use form. - Follow up: Emergency Department; When: As needed; Reason: Worsening of condition. Follow up: Private Physician; When: 2 - 3 days; Reason: Recheck today's complaints, Continuance of care, Re-evaluation by your physician. Follow up: Micheal Roque MD; When: 2 - 3 days; Reason: Recheck today's complaints, Continuance of care, Re-evaluation by your physician. Signatures: Dispatcher [employer] EDMS Lev Rudolph, KAREEN WORD PROCESSING SUPERVISOR pm1 Pritesh Urban RN RN fu Acob, Cheryl, RN RN ca1 Holmes, Maurice, MD MD 7 Corrections: (The following items were deleted from the chart) 00:23 00:22 07/02/2020 00:22 Discharged to Home. Impression: Hematuria. Condition is Stable. pm1 Forms are Medication Reconciliation Form, Thank You Letter, Antibiotic Education, Prescription Opioid Use. Follow up: Emergency Department; When: As needed; Reason: Worsening of condition. Follow up: Private Physician; When: 2 - 3 days; Reason: Recheck today's complaints, Continuance of care, Re-evaluation by your physician. pm1 00:56 00:23 07/02/2020 00:22 Discharged to Home. Impression: Hematuria. Condition is Stable. fu Discharge Instructions: Hematuria, Adult. Forms are Medication Reconciliation Form, Thank You Letter, Antibiotic Education, Prescription Opioid Use. Follow up: Emergency Department; When: As needed; Reason: Worsening of condition. Follow up: Private Physician; When: 2 - 3 days; Reason: Recheck today's complaints, Continuance of care, Re-evaluation by your physician. Follow up: Micheal Roque; When: 2 - 3 days; Reason: Recheck today's complaints, Continuance of care, Re-evaluation by your physician. pm1
--- NOTE | 2020-07-02 00:23 | ER ---
Nurse's Notes [facility] Name: Yash Mcnulty Age: 89 yrs Sex: Male : 1930 Arrival Date: 07/01/2020 Time: 17:59 Bed 24 Private MD: Diagnosis: Hematuria Presentation: 07/01 18:11 Chief complaint: Spouse and/or significant other states: He was just discharged 45 mins ca1 ago. Went straight to the restroom and he sat down on the toilet and after that there was blood in the toilet and we think it's coming with his urine. Shown picture of bright red blood in the toilet. Coronavirus screen: Client denies travel out of the [place] in the last 14 days. fever, Client presents with at least one sign or symptom that may indicate coronavirus-19. Standard/surgical mask placed on the client. Provider contacted for isolation considerations. Ebola Screen: Patient negative for fever greater than or equal to 101.5 degrees Fahrenheit, and additional compatible Ebola Virus Disease symptoms Patient denies exposure to infectious person. Patient denies travel to an Ebola-affected area in the 21 days before illness onset. No symptoms or risks identified at this time. Initial Sepsis Screen: Does the patient meet any 2 criteria? No. Patient's initial sepsis screen is negative. Does the patient have a suspected source of infection? No. Patient's initial sepsis screen is negative. Risk Assessment: Do you want to hurt yourself or someone else? Patient reports no desire to harm self or others. Onset of symptoms was July 01, 2020. 18:11 Method Of Arrival: Wheelchair ca1 18:11 Acuity: HAYDE 4 ca1 Historical: - Allergies: 18:15 No Known Allergies; ca1 - PMHx: 18:15 Atrial Fib; CAD; Dementia; Depression; High Cholesterol; Hypothyroidism; ca1 - Immunization history:: Pneumococcal vaccine is up to date, Flu vaccine is up to date. - Social history:: Smoking status: Patient denies any tobacco usage or history of. Screenin:25 Abuse screen: Denies threats or abuse. Nutritional screening: No deficits noted. fu Tuberculosis screening: No symptoms or risk factors identified. Fall Risk None identified. Assessment: 20:00 General: Appears in no apparent distress. Behavior is calm, cooperative, appropriate fu for age, Denies fever, feeling ill, fatigue, chills. Pain: Denies pain. Neuro: Level of Consciousness is awake, alert, obeys commands, Oriented to person, place, time, situation, Moves all extremities. Speech is normal, Facial symmetry appears normal. Cardiovascular: Reports history od afib on Xarelto. Respiratory: Respiratory effort is even, unlabored, Respiratory pattern is regular, symmetrical. GI: No signs and/or symptoms were reported involving the gastrointestinal system. : Reports hematuria today around 1745. : small blood clot noted on the top of the penis. EENT: No signs and/or symptoms were reported regarding the EENT system. Derm: No signs and/or symptoms reported regarding the dermatologic system. Musculoskeletal: No signs and/or symptoms reported regarding the musculoskeletal system. 21:00 Reassessment: Patient appears in no apparent distress at this time. Patient and/or fu family updated on plan of care and expected duration. Pain level reassessed. Patient is alert, oriented x 3, equal unlabored respirations, skin warm/dry/pink. urinal provided, patient tried to void but unsuccessful, stated he does not have urge to void. 22:00 Reassessment: Patient appears in no apparent distress at this time. No changes from fu previously documented assessment. Patient and/or family updated on plan of care and expected duration. Pain level reassessed. Patient is alert, oriented x 3, equal unlabored respirations, skin warm/dry/pink. and daughter at bedside. 23:00 Reassessment: Patient appears in no apparent distress at this time. No changes from fu previously documented assessment. Patient and/or family updated on plan of care and expected duration. Pain level reassessed. Patient is alert, oriented x 3, equal unlabored respirations, skin warm/dry/pink. 07/02 00:15 Reassessment: patient tried to void, unsuccessful at first, bedside commode provided, fu patient able pass formed stool in small amount and voided with minimal hematuria, urine seen by FILM CLEANER and patient's family. Vital Signs: 07/01 18:11 BP 103 / 71; Pulse 103; Resp 16 S; Temp 97.9(TE); ca1 20:12 BP 108 / 73; Pulse 95; Resp 18; Pulse Ox 98% on R/A; Pain 0/10; fu 21:45 BP 98 / 69; Pulse 81; Resp 18; Pulse Ox 99% on R/A; Pain 0/10; fu 22:45 BP 106 / 69; Pulse 73; Resp 19; Temp 97.6; Pulse Ox 97% on R/A; Pain 0/10; fu 23:15 BP 104 / 76; Pulse 82; Resp 18; Pulse Ox 96% on R/A; Pain 0/10; fu 07/02 00:15 BP 122 / 80; Pulse 95; Resp 18; Pulse Ox 98% on R/A; Pain 0/10; fu ED Course: 07/01 17:59 Patient arrived in ED. as 18:14 Triage completed. ca1 18:15 Arm band placed on right wrist. ca1 19:58 Pritesh Urban RN is Primary Nurse. fu 20:00 Lev Rudolph NP is PHCP. pm1 20:00 Guy Gibson MD is Attending Physician. pm1 20:38 CT Stone Protocol In Process Unspecified. EDMS 20:50 Inserted saline lock: 20 gauge in right antecubital area, using aseptic technique. fu Blood collected. 20:55 BMP Sent. fu 20:55 PT-INR Sent. fu 20:55 CBC with Diff Sent. fu 21:26 Patient has correct armband on for positive identification. Bed in low position. Call fu light in reach. Side rails up X2. 21:26 Pulse ox on. NIBP on. fu 22:00 Diet: Patient given snack. Tolerated well. fu 07/02 00:23 Micheal Roque MD is Referral Physician. pm1 00:40 No provider procedures requiring assistance completed. IV discontinued, bleeding fu controlled, Pressure dressing applied. Administered Medications: 07/01 22:27 Drug: Augmentin 875 mg Route: PO; fu 23:21 Follow up: Response: No adverse reaction fu Outcome: 07/02 00:22 Discharge ordered by . pm1 00:55 Discharged to home via wheelchair, with family. fu 00:55 Condition: good 00:55 Discharge instructions given to patient, family, Instructed on discharge instructions, follow up and referral plans. Demonstrated understanding of instructions, follow-up care, medications. 00:56 Patient left the ED. fu Signatures: Dispatcher [employer] EDMS Peg Lebron as Lev Rudolph NP FILM CLEANER pm1 Pritesh Urban RN RN fu Sissy Lauren, GLO RN ca1 Corrections: (The following items were deleted from the chart) 07/01 18:19 18:11 Acuity: HAYDE 3 ca1 ca1
[2020-07-02 01:10] VITALS: TEMP 97.6
[2020-07-02 01:13] VITALS: BP 122/80; O2SAT 98
== END 2020-07-02 00:56 | disposition home or self-care (01) ==
LOC: ER 17:57
DX: R31.9 Hematuria, unspecified (principal); F03.90 Unspecified dementia, unspecified severity, without behavioral disturbance, psychotic disturbance, mood disturbance, and anxiety; I48.91 Unspecified atrial fibrillation; I25.10 Atherosclerotic heart disease of native coronary artery without angina pectoris; F32.9 Major depressive disorder, single episode, unspecified; E78.5 Hyperlipidemia, unspecified; E03.9 Hypothyroidism, unspecified
CPT/HCPCS: 36415; 74176; 76377; 80048; 85025; 85610; 99284

== ENCOUNTER 2020-07-02 13:03 | Inpatient (IN) | payer OTHER ==
--- OUTSIDE RECORDS SUMMARY | 2020-07-02 13:17 | XMS REPORT | Continuity of Care Document ---
:1930 Author Organization [facility] t Address [address] [place] [address] Care Team Providers Name Role Phone Unavailable [...] - knee, knee, Memoria right right l [facility] ent Clinics Allergies, Adverse Reactions, Alerts [...] B-12 [facility]avez directed [facility] Amiodarone Amiodarone Yes Garret [...] Yes Garret as [facility] Silver Silver [facility] directed [facility] Xarelto Xarelto Yes Garret [address] [facility] with food [facility] Acetaminoph Acetaminoph Yes Garret not [facility] en-Codeine en-Codeine Chavez defined [facility] - #3 #3 [facility]oria l [facility] ent Clinics Levothyroxi Levothyroxi Yes Garret not [facility] ne Sodium ne Sodium [facility] Namenda XR Namenda XR Yes Garret not [facility] Chavez defined [facility] ent Clinics Pravastatin Pravastatin Yes Garret TAKE [address] [facility] Sodium Sodium Chavez TABLET BY Luke s - MOUTH Memoria EVERY DAY l IN THE [facility] EVENING. ent Clinics Furosemide Furosemide Yes Garret TAKE [address] [facility] Chavez TABLET BY [facility] - MOUTH Memoria EVERY DAY l [facility] ent Clinics Procedures This patient has no known procedures. Encounters Start End Encounter Admission Attending Care Care Encounter Source Date/Time Date/Time Type Type Clinicians Facility Department ID 2018-03-10 2018-03-10 [facility] [id number] [facility] 13:30:00 13:30:00 [facility] Results This patient has no known results.
[2020-07-02 13:38] LABS: Absolute Lymphocytes (CBC) 0.3 K/uL (0.7-4.9); Basophils % 0.3 % (0-1.3); Hematocrit 27.9 % (39.6-49.0); Lymphocytes % 4.5 % (15.3-44.8); MPV 9.4 fL (7.6-11.3)
[2020-07-02 14:10] LABS: Potassium 3.5 mmol/L (3.5-5.1)
--- NOTE | 2020-07-02 14:23 | RAD REPORT ---
EXAM DESCRIPTION: RAD - Chest Single View - 07/02/2020 1:47 pm CLINICAL HISTORY: FEVER COMPARISON: Portable July 01 TECHNIQUE: AP portable chest image was obtained 07/02/2020 1:47 pm . FINDINGS: No peripheral mass or consolidation. Chronic interstitial lung pattern is not substantiall y different from comparison. Cardiac silhouette is enlarged, increased from the comparison. Central v asculature is not clearly different. A few central granulomatous calcifications are present. No measu rable pleural effusion and no pneumothorax. No acute bony abnormality seen. No acute aortic findings suspected. IMPRESSION: Chronic interstitial lung disease not substantially different from comparison. No focal pneumonia identifiable. Cardiomegaly, increased from comparison.
[2020-07-02 15:16] LABS: Blood Morphology Comment NOT SEEN (NOT SEEN); Platelet Estimate ADEQ; White Blood Cell Scan OK (OK)
--- NOTE | 2020-07-02 15:23 | ER ---
Nurse's Notes [facility] Name: Yash Mcnulty Age: 89 yrs Sex: Male : 1930 Arrival Date: 07/02/2020 Time: 13:05 Bed 13 Private MD: Diagnosis: Fever, unspecified;Sepsis due to gram positive organism Presentation: 07/02 13:08 Chief complaint: EMS states: called because she noticed he was shaking and did not ss measure a temperature. PT was recently seen in ER and diagnosed with a UTI and placed on Augmentin. EMS measured an axillary temp of 101.1 and gave Tylenol 1 g en route to ED. Pt is also altered. EMS reports that it began sometime last night/ this morning. Coronavirus screen: Client denies travel out of the [place] in the last 14 days. fever, Client presents with at least one sign or symptom that may indicate coronavirus-19. Standard/surgical mask placed on the client. Ebola Screen: Patient denies exposure to infectious person. Patient denies travel to an Ebola-affected area in the 21 days before illness onset. Initial Sepsis Screen: Does the patient meet any 2 criteria? No. Patient's initial sepsis screen is negative. Does the patient have a suspected source of infection? Yes: Dysuria/Frequency/Urgency/UTI. Risk Assessment: Do you want to hurt yourself or someone else? Patient reports no desire to harm self or others. Onset of symptoms is unknown. 13:08 Method Of Arrival: EMS: [facility] ss 13:08 Acuity: HAYDE 3 ss Historical: - Allergies: 13:14 No Known Allergies; ss - PMHx: 13:14 Atrial Fib; CAD; Dementia; Depression; High Cholesterol; Hypothyroidism; ss - Immunization history:: Adult Immunizations up to date. - Social history:: Smoking status: Patient denies any tobacco usage or history of. Screenin:05 Abuse screen: Denies threats or abuse. Denies injuries from another. Nutritional ss screening: No deficits noted. Tuberculosis screening: Never had TB. Fall Risk No fall in past 12 months (0 pts). Secondary diagnosis (15 points) dementia, IV access (20 points). Ambulatory Aid- None/Bed Rest/Nurse Assist (0 pts). Gait- Normal/Bed Rest/Wheelchair (0 pts) Mental Status- Overestimates/Forgets Limitations (15 pts.). Assessment: 17:07 Reassessment: Pt is resting at this time. Eyes closed. Respirations remain even and ss unlabored. 19:30 Reassessment: Patient appears in no apparent distress at this time. Patient and/or wh family updated on plan of care and expected duration. Pain level reassessed. General: Appears in no apparent distress. Behavior is cooperative. Pain: Denies pain. Vital Signs: 13:08 BP 106 / 56; Pulse 88; Resp 17; Temp 99.6(TE); Pulse Ox 98% on R/A; Pain 0/10; ss 15:15 BP 91 / 67; Pulse 85; Resp 16; Pulse Ox 95% on R/A; ss 15:23 BP 107 / 70; Pulse 85; Pulse Ox 96% on R/A; ss 19:30 BP 94 / 67; Pulse 76; Resp 18; Pulse Ox 95% on R/A; ED Course: 13:05 Patient arrived in ED. ss 13:07 Reena Lozada, GLO is Primary Nurse. ss 13:08 Lev Rudolph NP is PHCP. pm1 13:09 Dong Leslie MD is Attending Physician. pm1 13:10 Maintain EMS IV. Dressing intact. Good blood return noted. Site clean \T\ dry. Gauge \T\ wendy 3 site: 18-gauge RAC. 13:13 Triage completed. ss 13:14 Arm band placed on right wrist. ss 13:29 Initial lab(s) drawn, by me, sent to lab. jp3 13:29 Patient maintains SpO2 saturation greater than 95% on room air. jp3 13:32 Bed in low position. Call light in reach. Side rails up X2. Warm blanket given. Verbal jp3 reassurance given. Pulse ox on. NIBP on. 13:47 Chest Single View XRAY In Process Unspecified. EDMS 15:22 Rayray Jiménez MD is Hospitalizing Provider. pm1 17:07 No provider procedures requiring assistance completed. Patient admitted, IV remains in ss place. Administered Medications: 15:28 Drug: Rocephin 1 grams Route: IV; Rate: calculated rate; Site: right antecubital; ss 15:30 Follow up: IV Status: Completed infusion Outcome: 15:22 Decision to Hospitalize by Provider. pm1 17:07 Admitted to ER Hold. Please see [facility] for further documentation. ss 17:07 Condition: good 17:07 Instructed on the need for admit. 19:59 Admitted to Med/surg accompanied by tech, via stretcher, room 230, with chart, Report wh called to Fartun Kebede RN 19:59 Condition: stable 19:59 Instructed on the need for admit. 20:09 Patient left the ED. Signatures: Dispatcher [employer] EDReena Kebede RN RN Lev Rudolph, HAND WINDER HAND WINDER pm1 Radha Goff RN RN Douglas Quevedo jp3 Corrections: (The following items were deleted from the chart) 13:14 13:08 BP 106 / 56; Pulse 88bpm; Resp 85bpm; Pulse Ox 98% RA; Temp 99.6F Temporal; Pain ss 0/10; ss
--- NOTE | 2020-07-02 15:23 | EDPHYS ---
Physician Documentation [facility] Name: Yash Mcnulty Age: 89 yrs Sex: Male : 1930 Arrival Date: 07/02/2020 Time: 13:05 Bed 13 Private MD: ED Physician Dong Leslie HPI: 07/02 13:25 This 89 yrs old Male presents to ER via EMS with complaints of shaking, Fever.pm1 13:25 The patient reports fever, that was measured at 101 degrees Fahrenheit. Onset: The pm1 symptoms/episode began/occurred yesterday. Associated signs and symptoms: Pertinent positives: runny nose, Pertinent negatives: abdominal pain, chest pain, cough, diarrhea, earache, headache, sore throat, vomiting. Severity of symptoms: in the emergency department the symptoms have improved with Tylenol given in route by EMS. The patient has been recently seen at the [facility] Emergency Department, yesterday, for similar complaints labs were performed, X-rays were performed, CT scan was performed, was given a prescription for antibiotics. Patient arrived to the ER today with complaints of chills and fever. This morning the patient started to have chills and was shaking. She contacted the EMS who found him febrile at 101. Gave him Tylenol 1gm in route. Historical: - Allergies: 13:14 No Known Allergies; ss - PMHx: 13:14 Atrial Fib; CAD; Dementia; Depression; High Cholesterol; Hypothyroidism; ss - Immunization history:: Adult Immunizations up to date. - Social history:: Smoking status: Patient denies any tobacco usage or history of. ROS: 13:25 ENT: Negative for injury, pain, and discharge, Cardiovascular: Negative for chest pain, pm1 palpitations, and edema, Respiratory: Negative for shortness of breath, cough, wheezing, and pleuritic chest pain, Abdomen/GI: Negative for abdominal pain, nausea, vomiting, diarrhea, and constipation, Back: Negative for injury and pain, MS/Extremity: Negative for injury and deformity, Skin: Negative for injury, rash, and discoloration, Neuro: Negative for headache, weakness, numbness, tingling, and seizure, Patient at his baseline dementia. at bedside reports no AMS present from baseline 13:25 Constitutional: Positive for chills, fever, Negative for poor PO intake. Exam: 13:25 Constitutional: This is a well developed, well nourished patient who is awake, alert, pm1 and in no acute distress. Head/Face: Normocephalic, atraumatic. 13:25 Abdomen/GI: Soft, non-tender, with normal bowel sounds. No distension or tympany. No guarding or rebound. No evidence of tenderness throughout. Skin: Warm, dry with normal turgor. Normal color with no rashes, no lesions, and no evidence of cellulitis. MS/ Extremity: Pulses equal, no cyanosis. Neurovascular intact. Full, normal range of motion. 13:25 Cardiovascular: Rate: normal, Rhythm: irregular, Pulses: no pulse deficits are appreciated, Edema: is not appreciated. 13:25 Respiratory: Exam negative for acute changes, respiratory distress, shortness of breath, Breath sounds: decreased breath sounds, are located in both bases. 13:25 Neuro: Exam negative for acute changes, Orientation: to person, place, Mentation: Baseline dementia per , Motor: is normal, moves all fours. Vital Signs: 13:08 BP 106 / 56; Pulse 88; Resp 17; Temp 99.6(TE); Pulse Ox 98% on R/A; Pain 0/10; ss 15:15 BP 91 / 67; Pulse 85; Resp 16; Pulse Ox 95% on R/A; ss 15:23 BP 107 / 70; Pulse 85; Pulse Ox 96% on R/A; ss 19:30 BP 94 / 67; Pulse 76; Resp 18; Pulse Ox 95% on R/A; MDM: 13:10 Patient medically screened. pm1 19:10 Data reviewed: vital signs. pm1 07/02 13:18 Order name: CBC with Diff; Complete Time: 15:21 pm1 07/02 13:18 Order name: BMP; Complete Time: 14:13 pm1 07/02 13:18 Order name: Procalcitonin; Complete Time: 15:03 pm1 07/02 13:18 Order name: Chest Single View XRAY; Complete Time: 14:24 pm1 07/02 15:16 Order name: CBC Smear Scan; Complete Time: 15:21 EDMS 07/02 13:18 Order name: IV Saline Lock; Complete Time: 13:36 pm1 Administered Medications: 15:28 Drug: Rocephin 1 grams Route: IV; Rate: calculated rate; Site: right antecubital; 15:30 Follow up: IV Status: Completed infusion ss Disposition: 07/02/20 15:22 Hospitalization ordered by Rayray Jiménez for Observation. Preliminary diagnosis are Sepsis due to gram positive organism, Fever, unspecified. - Bed requested for Telemetry/MedSurg (observation). - Status is Observation. wh - Condition is Stable. - Problem is new. - Symptoms have improved. Addendum: 07/04/2020 23:10 Co-signature as Attending Physician, Dong Leslie MD. r n Signatures: Dispatcher [employer] EDMS Gemma Frost Roman, MD MD rn Smirch, Shelby, RN RN Ann Vivas RN RN cg Marinas, Patrick, [employer]PA[employer] pm1 Radha Goff RN RN Corrections: (The following items were deleted from the chart) 07/02 15:55 15:22 Hospitalization Ordered by A Jessy BARNEY for Observation. Preliminary diagnosis is bd Fever, unspecified. Bed requested for Telemetry/MedSurg (observation). Status is Observation. Condition is Stable. Problem is new. Symptoms have improved. pm1 16:40 15:55 07/02/2020 15:22 Hospitalization Ordered by A Jessy BARNEY for Observation. pm1 Preliminary diagnosis is Fever, unspecified. Bed requested for [facility] ER HOLD. Status is Observation. Condition is Stable. Problem is new. Symptoms have improved. bd 18:58 16:40 07/02/2020 15:22 Hospitalization Ordered by A Jessy BARNEY for Observation. bd Preliminary diagnosis is Sepsis due to gram positive organismFever, unspecified. Bed requested for [facility] ER HOLD. Status is Observation. Condition is Stable. Problem is new. Symptoms have improved. pm1 19:01 18:58 07/02/2020 15:22 Hospitalization Ordered by A Jessy BARNEY for Observation. bd Preliminary diagnosis is Sepsis due to gram positive organismFever, unspecified. Bed requested for Telemetry/MedSurg (observation). Status is Observation. Condition is Stable. Problem is new. Symptoms have improved. bd 19:30 19:01 07/02/2020 15:22 Hospitalization Ordered by A Jessy BARNEY for Observation. cg Preliminary diagnosis is Sepsis due to gram positive organismFever, unspecified. Bed requested for Telemetry/MedSurg (observation). Status is Observation. Condition is Stable. Problem is new. Symptoms have improved. bd 20:09 19:30 07/02/2020 15:22 Hospitalization Ordered by A Jessy BARNEY for Observation. Preliminary diagnosis is Sepsis due to gram positive organismFever, unspecified. Bed requested for Telemetry/MedSurg (observation). Status is Observation. Condition is Stable. Problem is new. Symptoms have improved. cg
[2020-07-02] MEDS ORDERED: CEFTRIAXONE/SWI 1gm 1 GM/10 ML SYR ONE (15:34)
[2020-07-02 17:31] VITALS: BMI 22.5
[2020-07-02] MEDS: CEFTRIAXONE/SWI 1gm 1 GM/10 ML SYR IVP SCH (21:22)
[2020-07-03 05:53] LABS: Potassium 3.5 mmol/L (3.5-5.1)
[2020-07-03 05:56] LABS: Absolute Lymphocytes (CBC) 0.6 K/uL (0.7-4.9); Basophils % 0.7 % (0-1.3); Hematocrit 28.8 % (39.6-49.0); Lymphocytes % 9.1 % (15.3-44.8); MPV 9.9 fL (7.6-11.3); RBC Red Blood Cell Count 3.27 M/uL (4.33-5.43)
--- NOTE | 2020-07-03 07:12 | HP ---
Date of Admission: 07/02/2020 Chief Complaint: Blood in urine and fever. History Of Present Illness: This is an 89-year-old pleasant male patient, who lives at home with his , came into emergency room on 07/01/2020 with complaints of fever. The patient had unremarkable workup done in the emergency room and he was given 1 dose of ceftriaxone in the ER. He had a urine sample that was collected with help of straight cath and he was discharged from emergency room yester day with Augmentin. After he went home, he started to have gross hematuria, so brought him back to the emergency room today and after he was evaluated, I was contacted from ER requesting admission to the hospital as his blood culture that was collected yesterday during ER visit was positive with gram-positive cocci in pairs and chains. The patient was admitted to the hospital and I saw him in [facility] emergency room, his was with him at bedside. He denies any cough, congestion. No shortness of breath. No expectoration. No hemoptysis. No abdominal pain, nausea, vomiting. No dysuria. Allergies: NO KNOWN ALLERGIES. Review of Systems: Constitutional: As mentioned above. Genitourinary: As mentioned above. Medications: Senokot-S 2 tablets by mouth 2 times a day, furosemide 40 mg by mouth 2 times a day, ga lantamine 12 mg daily, Hemocyte Plus 1 tablet every other day, levothyroxine 75 mcg p.o. daily, Namen da XR 28 mg p.o. daily, metoprolol tartrate 25 mg p.o. daily in morning, pravastatin 80 mg p.o. daily in the evening, Xarelto 20 mg p.o. daily in the evening, vitamin B12 1000 mcg p.o. daily. Past Medical History: Significant for hypothyroidism, hypertension, hyperlipidemia, chronic systolic congestive heart failure, chronic atrial fibrillation, constipation, diverticulosis, chronic kidney disease, and anemia. Past Surgical History: Significant for cataract surgery, lumpectomy for benign left breast mass, her srini repair, TURP, back surgery, hip surgery which was right hip secondary to fracture and right leg s urgery. Family History: Father had hypertension and SC. Mother had diabetes and stroke. Brother had caroti d artery stenosis, and sister had stroke. Social History: Negative for smoking and alcohol use. Physical Examination: Vital Signs: Temperature 97.4, pulse 86, respiratory rate 17, blood pressure 103/76, oxygen saturati on 96%, height 6 feet, weight 166 pounds. General: Awake, alert, oriented, not in distress. HEENT: Head atraumatic, normocephalic. Conjunctivae nonerythematous. Sclerae white. Mouth, no thr ush or edema noted. Ears/Nose, no mass, lesion, discharge noted. Neck: Supple. No JVD, lymph nodes, bruit, thyromegaly noted. Lungs: Diminished air entry in the right lower lung field. Heart: Normal heart sounds, no murmur or gallop. Abdomen: Soft, bowel sounds normal. No guarding, rigidity, tenderness, mass, hepatosplenomegaly, dis tention, or bruit noted. Extremities: No leg edema. No calf tenderness. Skin: No rash, ulcer, cellulitis. Lymphatics: No lymph node enlargement in neck, supraclavicular, infraclavicular region. Neuro: No focal neurological deficit. Chest: Unremarkable. External Genitalia: Deferred. Rectal: Deferred. Laboratory Data: The patient's blood culture from 07/01/2020 showed gram-positive cocci in pairs and chains. CAT scan abdomen with stone protocol done showing presence of diverticulosis and diverticul osis, degenerative joint disease, 3.6 cm right renal cyst stress, left pleural effusion, moderate to large right pleural effusion. Chest x-ray shows chronic interstitial changes. White count today 6.6 , hemoglobin 9.2, platelets 168. Sodium 143, potassium 3.5, chloride 113, bicarb 24, BUN 27, creatin ine 1.59, glucose 120. Procalcitonin today 0.14, yesterday it was 1.26. His urinalysis, which was a straight cath specimen collected yesterday shows rbc's TNTC, blood 3+, protein 1+. His influenza A and B test, COVID-19 test, and streptococcal screen test, all were negative yesterday. Impression: 1.Sepsis, organism gram-positive cocci. 2.Pleural effusion. 3.Hypokalemia. 4.Anemia, chronic, unspecified. 5.Chronic kidney disease. 6.Hypertension. 7.Hyperlipidemia. 8.Chronic systolic congestive heart failure. 9.Chronic anticoagulation therapy. 10.Chronic atrial fibrillation. 11.Diverticulosis. 12.Hypothyroidism. Plan: Admit patient to hospital for further evaluation and management of this problem. The patient is appropriate for inpatient and is expected to spend 2 midnights in hospital. We will go ahead and give him IV ceftriaxone 1 g every 12 hours. Follow up on final results on the culture. We will get a CAT scan of the chest tomorrow for further evaluation of this pleural effusion and if necessary con corrections sergeant Pulmonary consultation as well. Details and plan of treatment discussed with the patient and t he patient's who was at bedside. I will see him tomorrow morning for followup. The patient's g ross hematuria was secondary to instrumentation which is straight cath, which was done during yesterd ay's ER visit for collection of urine specimen and likely the result of trauma. No need for any furt her intervention at this point unless bleeding problem does not improve. CARMINE/MODL Voice ID: [id number]
[2020-07-03] MEDS: CEFTRIAXONE/SWI 1gm 1 GM/10 ML SYR IVP SCH ×2 (07:47→21:21)
--- NOTE | 2020-07-03 10:01 | RAD REPORT ---
EXAM DESCRIPTION: CT - Thorax Con - 07/03/2020 9:12 am CLINICAL HISTORY: sepsis, pleural effusion COMPARISON: Thorax Wo Con dated 04/22/2019 TECHNIQUE: Axial 5 mm thick images of the chest were obtained without IV contrast. All CT scans are performed using dose optimization technique as appropriate and may include automated exposure control or mA/KV adjustment according to patient size. FINDINGS: Moderately large right pleural effusion is present occupying approximately 30-40% of the r ight hemithorax volume. Significant atelectasis of the right lower lobe is present. Partial atelectas is seen in the right middle and right upper lobe. Left-sided pleural effusion is small with only mini mal atelectasis. In the aerated portions of the lung parenchyma no focal consolidation is seen. Respiratory motion cou ld mask mild interstitial edema or interstitial infiltrate. No pleural based mass and no pneumothorax present. Granulomatous calcifications are present. Patient has a few small nonspecific mediastinal and hilar lymph nodes. No gross aortic or pulmonary a rtery finding suspected. Assessment is limited in the absence of IV contrast. Biatrial enlargement i s present with a mild cardiomegaly. No pericardial effusion. No chest wall mass or abnormal axillary lymphadenopathy. Bony degenerative changes are present. Old r ib trauma changes are seen. IMPRESSION: Moderately large right pleural effusion occupying 30-40% of the right hemithorax volume. Left pleural effusion is small. No mass or consolidations seen to suspect bacterial pneumonia. A mild interstitial edema or infiltrat e cannot be excluded.
[2020-07-03] MEDS ORDERED: DOCUSATE NA/SENNA CONC 1 TAB PO PRN (20:36)
[2020-07-03] MEDS: GALANTAMINE 24 MG PO SCH (21:00)
[2020-07-03] MEDS: METOPROLOL TAR 25 MG TAB PO SCH (21:20)
[2020-07-03] MEDS: ATORVASTATIN 10 MG TAB PO SCH (21:20)
[2020-07-04] MEDS: LEVOTHYROXINE SOD 0.075 MG TAB PO SCH (05:55)
--- NOTE | 2020-07-04 07:20 | PN ---
Date of Progress Note: 07/03/2020 Subjective: The patient was seen for followup in the morning, lying in bed, not in distress. Objective: Vital Signs: Reviewed. HEENT: Unremarkable. Lungs: Clear to auscultation on the left side. Right side diminished air entry in the lower lung fi elds. Not in any respiratory distress. Heart: Sounds normal. Abdomen: Soft. Bowel sounds normal. No guarding, rigidity, tenderness, or distention. Extremities: No leg edema. Laboratory Data: White count 6.3, hemoglobin 9.5, platelets 160. Sodium 144, potassium 3.5, chlorid e 112, bicarb 26, BUN 25, creatinine 1.36, glucose 86. CT scan of the chest done today, results revi ewed. Blood culture growing Streptococcus. Impression: 1.Sepsis, organism Streptococcus. 2.Pleural effusion. 3.Gross hematuria secondary to instrumentation. Plan: The patient's hematuria has improved. We will continue current antibiotics. Follow up with Isaiah Ballard from Pulmonary Service and home medications will be continued per order and I will see hi m tomorrow for followup. CARMINE/MODL Voice ID: [id number] Report ID: [id number]
[2020-07-04] MEDS: GALANTAMINE 24 MG PO SCH (09:00)
[2020-07-04] MEDS: CYANOCOBALAMIN 1,000 MCG TAB PO SCH (10:28)
[2020-07-04] MEDS: RIVAROXABAN 10 MG TABLET PO SCH (10:28)
[2020-07-04] MEDS: METOPROLOL TAR 25 MG TAB PO SCH ×2 (10:28→20:35)
[2020-07-04] MEDS: CEFTRIAXONE/SWI 1gm 1 GM/10 ML SYR IVP SCH ×2 (10:29→20:33)
--- NOTE | 2020-07-04 12:32 | P.CNS ---
Date of Consult: 07/04/20 Reason for Consult: Pleural effusion Chief Complaint: Chills History of Present Illness: Patient is a 89-year-old admitted from the emergency room with sudden onset of fever and chills the given some antibiotic is doing much better currently he was taking Augmentin at home he also noticed some gross hematuria at present at the bedside denies any pulmonary complaints although pleural effusion was noted on the CT scan not visible on chest x-ray patient had 1 episode of fever Allergies No Known Drug Allergies Allergy (Verified 04/05/16 21:42) Unknown Home Medications: Furosemide [Lasix] 40 mg PO BID* 04/06/19 Galantamine HBr [Galantamine ER] 12 mg PO BID 04/06/19 Levothyroxine [Synthroid] 75 mcg PO [id number] 04/06/19 Memantine HCl [Namenda Xr] 28 mg PO DAILY 04/06/19 Metoprolol Tartrate [Lopressor] 25 mg PO BID 04/06/19 Multivit-Min/FA/Lycopen/Lutein [Centrum Silver Tablet] 1 tab PO DAILY 04/06/19 Pravastatin Sodium [Pravachol] 80 mg PO BEDTIME 04/06/19 Rivaroxaban [Xarelto] 20 mg PO DAILY 04/06/19 Vit A,C & E/Lutein/Minerals [Ocuvite Tablet] 1 tab PO DAILY 04/06/19 Cyanocobalamin [Vitamin B-12] 1,000 mcg PO DAILY 04/21/19 Docusate/Senna [Senokot-S] 2 tab PO DAILY PRN 04/21/19 - Past Medical/Surgical History Diabetic: No -: high cholesterol -: dementia -: CAD -: Atrial fib -: Hypothyroidism -: depression -: Hernia repair -: Back surgery -: right lower leg surg - Social History Smoking Status: Never smoker Alcohol use: No CD- Drugs: No Caffeine use: Yes Place of Residence: Home Review of Systems is unable to be obtained Physical Examination Temp Pulse Resp BP Pulse Ox 96.9 F 102 H 18 152/75 H 95 07/04/20 08:00 07/04/20 10:28 07/04/20 08:00 07/04/20 08:00 07/04/20 08:00 General: Alert, Oriented x1 Respiratory: Clear to auscultation bilaterally, Diminished Cardiovascular: No edema, Normal S1 S2 Gastrointestinal: Normal bowel sounds, Soft and benign - Problems (1) Pleural effusion Current Visit: Yes Status: Acute Plan: Patient admitted with sudden onset of fever chills 1 episode of fever since admission blood culture positive for alpha hemolytic strep chest x-ray some interstitial changes CT scan shows bilateral effusion right greater than the left not visible on the chest x-ray possibly underlying diastolic dysfunction suddenly the echocardiogram done before was suggestive labs reviewed chronic renal failure patient's white count is normal vital signs stable repeat blood cultures urine cultures most likely this is a skin contaminant thoracentesis is not indicated recommend discharge to assess the blood cultures were positive for alpha hemolytic strep patient was treated with Augmentin
[2020-07-04] MEDS: GALANTAMINE HBR 12 MG PO SCH (20:34)
[2020-07-04] MEDS: ATORVASTATIN 10 MG TAB PO SCH (20:35)
[2020-07-05] MEDS: LEVOTHYROXINE SOD 0.075 MG TAB PO SCH (06:43)
--- NOTE | 2020-07-05 07:14 | PN ---
Date of Progress Note: 07/04/2020 Subjective: The patient was seen this morning for followup. No new complaints or problems reported by patient. was with him at bedside. Objective: Vital Signs: Reviewed. HEENT: Unremarkable. Lungs: Clear to auscultation except diminished air entry in the right lower lung field unchanged. N ot in respiratory distress. Heart: Sounds normal. Abdomen: Soft. Bowel sounds normal. No guarding, rigidity, tenderness, or distention. Extremities: No leg edema. Impression: 1.Sepsis, organism Streptococcus. 2.Pleural effusion. 3.Atrial fibrillation. 4.Chronic anticoagulation therapy. 5.Gross hematuria, improving. Plan: The patient's reports that his gross hematuria is still present, but overall it is improv ing very well. No need for any further intervention. This gross hematuria is due to a straight cath instrumentation, which was done in the emergency room during the ER visit prior to this admission. His blood culture is growing Streptococcus. We will wait for the final report. Continue current ant ibiotics. Meanwhile, we will continue to follow up with Dr. Ballard for this pleural effusion. Con tinue home medication including Xarelto per order. CARMINE/MODL Voice ID: [id number] Report ID: [id number]
[2020-07-05 07:22] LABS: Absolute Lymphocytes (CBC) 0.8 K/uL (0.7-4.9); Basophils % 0.5 % (0-1.3); Hematocrit 29.6 % (39.6-49.0); Lymphocytes % 10.4 % (15.3-44.8); MPV 9.5 fL (7.6-11.3)
[2020-07-05 07:32] LABS: Albumin 2.2 g/dL (3.4-5.0); Bilirubin Total 0.3 mg/dL (0.2-1.0); Magnesium 2.8 mg/dL (1.8-2.4); Potassium 4.1 mmol/L (3.5-5.1); Protein, Total 6.6 g/dL (6.4-8.2)
--- NOTE | 2020-07-05 07:39 | RAD REPORT ---
EXAM DESCRIPTION: Kelsey Single View07/05/2020 7:27 am CLINICAL HISTORY: Pleural effusion COMPARISON: July 03 FINDINGS: The right pleural effusion appears mildly diminished in size and is probably small to mod erate. Mild right basilar atelectasis Small left pleural effusion. Upper lobe vessels are prominent indicative of pulmonary venous hypertension. Lungs are otherwise yara ar. Heart is enlarged
[2020-07-05] MEDS: METOPROLOL TAR 25 MG TAB PO SCH ×2 (09:19→20:51)
[2020-07-05] MEDS: RIVAROXABAN 10 MG TABLET PO SCH (09:19)
[2020-07-05] MEDS: CEFTRIAXONE/SWI 1gm 1 GM/10 ML SYR IVP SCH ×2 (09:20→20:51)
[2020-07-05] MEDS: CYANOCOBALAMIN 1,000 MCG TAB PO SCH (09:20)
[2020-07-05 10:59] LABS: Urine Appearance CLEAR; Urine Bilirubin NEGATIVE (NEG); Urine Blood NEGATIVE (NEG); Urine Color YELLOW; Urine Glucose NEGATIVE (NEG); Urine Protein 1+ (NEG); Urine Specific Gravity 1.025 (1.005-1.030); Urine Urobilinogen 0.2 mg/dL (0.2-1.0); Urine pH 5.5 (5.0-7.0)
[2020-07-05 12:19] LABS: Urine Microscopic Reflex ORDER UMIC
[2020-07-05 12:35] LABS: Urine Bacteria 20-50 /HPF (NONE SEEN); Urine RBC <5 /HPF (NONE SEEN)
[2020-07-05] MEDS: GALANTAMINE HBR 12 MG PO SCH ×2 (14:30→20:52)
[2020-07-05] MEDS: ATORVASTATIN 10 MG TAB PO SCH (20:51)
[2020-07-06] MEDS: LEVOTHYROXINE SOD 0.075 MG TAB PO SCH (05:49)
[2020-07-06] MEDS: CEFTRIAXONE/SWI 1gm 1 GM/10 ML SYR IVP SCH (08:54)
[2020-07-06] MEDS: CYANOCOBALAMIN 1,000 MCG TAB PO SCH (08:54)
[2020-07-06] MEDS: METOPROLOL TAR 25 MG TAB PO SCH (08:54)
[2020-07-06] MEDS: GALANTAMINE HBR 12 MG PO SCH (08:55)
[2020-07-06] MEDS: RIVAROXABAN 10 MG TABLET PO SCH (08:59)
--- NOTE | 2020-07-06 14:28 | PN ---
Date of Progress Note: 07/05/2020 Subjective: The patient was seen for followup this morning. No new complaints or problems reported. The patient lying in bed, not in distress. His was present with him at bedside. Objective: Vital Signs: Reviewed. HEENT: Unremarkable. Lungs: Clear to auscultation. Heart: Sounds normal. Abdomen: Soft. Bowel sounds normal. No guarding, rigidity, tenderness, distention. Extremities: No leg edema. Laboratory Data: White count 7.30, hemoglobin 9.9, platelets 202. Sodium 145, potassium 4.1, chlori de 115, bicarb 25, BUN 22, creatinine 1.13, glucose 94. Impression: 1.Pleural effusion. 2.Gross hematuria, improved. 3.Anemia, unspecified. Plan: We will go ahead and continue current empiric antibiotics. Follow up on culture results. The patient's gross hematuria is improving. The patient to continue to ambulate with assistance. I deena l see him tomorrow. Hopefully, possible discharge to go home tomorrow depending on his condition. D etails and plan of treatment discussed with the patient and his . CARMINE/MODL Voice ID: [id number] Report ID: [id number]
[2020-07-06 14:37] VITALS: O2SAT 93
[2020-07-06 14:38] VITALS: TEMP 97.5
--- NOTE | 2020-07-06 14:52 | DS ---
Date of Discharge: 07/06/2020 CARMINE/MODL Voice ID: [id number] Report ID: [id number] MTDD
[2020-07-06 16:11] VITALS: BP 150/70
--- NOTE | 2020-07-07 01:53 | DS ---
Date of Discharge: 07/06/2020 Disposition: Discharged to go home. Physical Examination: HEENT: Unremarkable. LUNGS: Clear to auscultation. HEART: Sounds normal. ABDOMEN: Soft. Bowel sounds normal. No guarding, rigidity, tenderness, or distention. EXTREMITIES: No leg edema. Discharge Medications And Instructions: 1. Continue all prior home medication except change furosemide 40 mg, patient to take 1-1/2 tablet by mouth 2 times a day. 2. Resume antibiotic which is augmentin 1 tablet by mouth 2 times a day as prescribed from emergency room physician. 3. Follow up at my office on 07/12/2020. Laboratory Data: Upon admission, white count was 6.6, hemoglobin 9.2, platelets 168. Repeat white count on 07/03/2020 was 6.3, hemoglobin 9.5, platelets 169. Last white count yesterday 7.3, hemoglobin 9.9, platelets 202. His last chemistry yesterday sodium 145, potassium 4.1, chloride 115, bicarb 25, BUN 22, creatinine 1.13, glucose 94. Upon admission, his procalcitonin was 0.14. His BUN was 27 with creatinine 1.59 upon admission. Liver function tests done yesterday unremarkable except AST 47. His blood culture remained negative, which was done during this hospitalization and urine culture also remained negative. His blood culture that was done during previous ER visit had shown gram-positive cocci and final report came back as skin contaminant. Chest x-ray showed right pleural effusion, slightly diminished and small to moderate effusion, mild right basilar atelectasis, small left pleural effusion and this is chest x-ray from yesterday. His CAT scan of the chest without contrast done on 07/03 shows moderately large right pleural effusion occupying 30-40% of the right hemithorax, left pleural effusion is small, no mass, no consolidation. Hospital Course: This is an 89-year-old male patient admitted to the hospital with blood in urine and fever. Please see dictated H and P for more information. After the patient was evaluated in ER, he was admitted to the hospital. His blood culture with emergency room visit day before this admission was reported as gram-positive cocci. Final report came back as a skin contaminant. The patient has gross hematuria, which has improved over period of this hospitalization. He was given antibiotics. He has remained afebrile during this hospitalization. Physical therapy was consulted to help ambulate the patient and overall his condition has improved. Now, he is stable for discharge. I suspect that his pleural effusion is due to his underlying chronic systolic congestive heart failure. Increase dose of diuretic medication to see how we can improve his pleural effusion problem over a period of time. Final Diagnoses: 1. Fever. 2. Pleural effusion. 3. Hypokalemia. 4. Anemia, chronic, unspecified. 5. Chronic systolic congestive heart failure. 6. Hypertension. 7. Hyperlipidemia. 8. Chronic anticoagulation therapy. 9. Chronic atrial fibrillation. 10. Chronic kidney disease stage 3A. 11. Diverticulosis. 12. Hypothyroidism. CARMINE/MODL Voice ID: [id number] Report ID: [id number] MTDD
== END 2020-07-06 16:10 | disposition home or self-care (01) | DRG 872 ==
LOC: ER 13:03 → ERHOLD 17:26 → 2ND 20:02
PROVIDERS: ADMIT Internal Medicine; ATTEND Internal Medicine
DX: A40.9 Streptococcal sepsis, unspecified (principal); I50.22 Chronic systolic (congestive) heart failure; I13.0 Hypertensive heart and chronic kidney disease with heart failure and stage 1 through stage 4 chronic kidney disease, or unspecified chronic kidney disease; I48.20 Chronic atrial fibrillation, unspecified; T83.83XA Hemorrhage due to genitourinary prosthetic devices, implants and grafts, initial encounter; N18.31 Chronic kidney disease, stage 3a; I25.10 Atherosclerotic heart disease of native coronary artery without angina pectoris; D64.9 Anemia, unspecified; E87.6 Hypokalemia; E78.5 Hyperlipidemia, unspecified; K57.90 Diverticulosis of intestine, part unspecified, without perforation or abscess without bleeding; E03.9 Hypothyroidism, unspecified; R31.0 Gross hematuria; Z79.890 Hormone replacement therapy; Z79.01 Long term (current) use of anticoagulants; Z79.899 Other long term (current) drug therapy
CPT/HCPCS: 0240U; 36415; 71045; 71250; 74176; 76377; 80048; 80053; 81003; 81015; 83735; 84145; 85025; 85610; 87040; 87070; 87081; 87086; 87088; 87205; 93005; 96361; 96365; 96374; 99284; 99285; J0696; J7040

== ENCOUNTER 2020-07-08 12:37 | Inpatient (IN) | payer OTHER ==
--- OUTSIDE RECORDS SUMMARY | 2020-07-08 12:39 | XMS REPORT | Continuity of Care Document ---
:1930 Author Organization [facility] t Address [address] [place] [address] Care Team Providers Name Role Phone Unavailable [...] Sodium [facility]avez defined [facility] Namenda XR Namenda XR Yes Garret not C [facility] Chavez defined [facility] Pravastatin Pravastatin Yes Garret TAKE [address] [facility] Sodium Sodium Chavez TABLET BY [facility] Clinics Furosemide Furosemide Yes Garret TAKE [address] [facility]avez TABLET BY [facility] Procedures This patient has no known procedures. Encounters Start End Encounter Admission Attending Care Care Encounter Source Date/Time Date/Time Type Type Clinicians Facility Department ID 2018-03-10 2018-03-10 [facility] [id number] [facility] [address] 13:30:00 13:30:00 [facility] Results This patient has no known results.
--- NOTE | 2020-07-08 13:36 | RAD REPORT ---
EXAM DESCRIPTION: Kelsey Single View07/08/2020 1:12 pm CLINICAL HISTORY: Congestion COMPARISON: July 03 FINDINGS: Small bilateral pleural effusions. Mild bilateral pulmonary opacities. The heart is enlarged IMPRESSION: Mild CHF
[2020-07-08 13:45] LABS: Absolute Lymphocytes (CBC) 0.6 K/uL (0.7-4.9); Basophils % 0.6 % (0-1.3); Hematocrit 31.2 % (39.6-49.0); Lymphocytes % 8.6 % (15.3-44.8); MPV 9.8 fL (7.6-11.3); RBC Red Blood Cell Count 3.56 M/uL (4.33-5.43)
[2020-07-08 14:09] LABS: Potassium 3.7 mmol/L (3.5-5.1)
[2020-07-08 14:14] LABS: Troponin (Emerg Dept Use Only) 0.52 ng/mL (0.0-0.045)
[2020-07-08] MEDS ORDERED: FUROSEMIDE 20 MG/ 2ML VIAL ONE (14:35)
[2020-07-08] MEDS ORDERED: ASPIRIN 81 MG CHEWABLE TABLET ONE (14:53)
[2020-07-08] MEDS ORDERED: ENOXAPARIN 80 MG/0.8 ML SQ ONE (14:53)
--- NOTE | 2020-07-08 15:34 | EDPHYS ---
Physician Documentation [facility] Name: Yash Mcnulty Age: 89 yrs Sex: Male : 1930 Arrival Date: 07/08/2020 Time: 12:52 Bed 17 Private MD: ED Physician Annalisa Espinosa HPI: 07/08 13:14 This 89 yrs old Male presents to ER via EMS with complaints of Abdominal ma2 Swelling. 13:14 This 89 yrs old Male presents to ER via EMS with complaints of shortness of ma2 breath and generalized swelling . 13:14 The patient has shortness of breath with light activity. Onset: The symptoms/episode ma2 began/occurred gradually, 2 hour(s) ago. Associated signs and symptoms: Pertinent negatives: productive cough, dizziness, hemoptysis, nausea. Severity of symptoms: At their worst the symptoms were very mild in the emergency department the symptoms have resolved. The patient has not experienced similar symptoms in the past. Historical: - Allergies: 12:57 No Known Allergies; ss - PMHx: 12:57 Atrial Fib; Dementia; CAD; Depression; High Cholesterol; Hypothyroidism; ss - Immunization history:: Adult Immunizations unknown. - Social history:: Smoking status: unknown. - Family history:: not pertinent. ROS: 13:14 Constitutional: Negative for fever, chills, and weight loss. ma2 13:14 All other systems are negative. Exam: 13:14 Constitutional: This is a well developed, well nourished patient who is awake, alert, ma2 and in no acute distress. Head/Face: Normocephalic, atraumatic. Eyes: Pupils equal round and reactive to light, extra-ocular motions intact. Lids and lashes normal. Conjunctiva and sclera are non-icteric and not injected. Cornea within normal limits. Periorbital areas with no swelling, redness, or edema. ENT: Nares patent. No nasal discharge, no septal abnormalities noted. Tympanic membranes are normal and external auditory canals are clear. Oropharynx with no redness, swelling, or masses, exudates, or evidence of obstruction, uvula midline. Mucous membranes moist. Neck: Trachea midline, no thyromegaly or masses palpated, and no cervical lymphadenopathy. Supple, full range of motion without nuchal rigidity, or vertebral point tenderness. No Meningismus. Chest/axilla: Normal chest wall appearance and motion. Nontender with no deformity. No lesions are appreciated. Cardiovascular: Regular rate and rhythm with a normal S1 and S2. No gallops, murmurs, or rubs. Normal PMI, no JVD. No pulse deficits. Respiratory: Lungs have equal breath sounds bilaterally, clear to auscultation and percussion. No rales, rhonchi or wheezes noted. No increased work of breathing, no retractions or nasal flaring. Abdomen/GI: Soft, non-tender, with normal bowel sounds. No distension or tympany. No guarding or rebound. No evidence of tenderness throughout. Back: No spinal tenderness. No costovertebral tenderness. Full range of motion. Skin: Warm, dry with normal turgor. Normal color with no rashes, no lesions, and no evidence of cellulitis. MS/ Extremity: LE edema 2+ pitting equal bilat.. Pulses equal, no cyanosis. Neurovascular intact. Full, normal range of motion. Neuro: Awake and alert, GCS 15, oriented to person, place, time, and situation. Cranial nerves II-XII grossly intact. Motor strength 5/5 in all extremities. Sensory grossly intact. Cerebellar exam normal. Normal gait. Vital Signs: 12:53 BP 121 / 72; Pulse 99; Resp 30; Temp 97.0(TE); Pulse Ox 91% on R/A; Pain 0/10; ss 13:30 BP 131 / 87; Pulse 98; Resp 25; Pulse Ox 97% ; ah 14:30 BP 127 / 90; Pulse 119; Resp 23; Pulse Ox 99% ; ah 15:30 BP 134 / 85; Pulse 114; Resp 27; Pulse Ox 95% ; ah 16:15 BP 134 / 85 LA (auto/reg); Pulse 101; Resp 22; Pulse Ox 98% on 2 lpm NC; jp3 17:30 BP 126 / 88; Pulse 99; Resp 17; Pulse Ox 98% ; ah 19:35 BP 122 / 79; Pulse 98; Resp 18; Temp 97.4; Pulse Ox 98% ; ea MDM: 12:53 Patient medically screened. ma2 13:14 Differential diagnosis: Anemia Anxiety Reaction Bronchitis CHF exacerbation, Chronic ma2 Obstructive Pulmonary Disease reactive airway disease. 15:02 Data reviewed: vital signs, nurses notes, lab test result(s), EKG, radiologic studies. [facility] Counseling: I had a detailed discussion with the patient and/or guardian regarding: the historical points, exam findings, and any diagnostic results supporting the discharge/admit diagnosis, the presence of at least one elevated blood pressure reading (>120/80) during this emergency department visit, the need for outpatient follow up. Response to treatment: the patient's symptoms have markedly improved after treatment. 07/08 12:54 Order name: BMP [facility] 07/08 12:54 Order name: CBC with Diff [facility] 07/08 12:54 Order name: NT PRO-BNP [facility] 07/08 12:54 Order name: Troponin (emerg Dept Use Only); Complete Time: 14:14 [facility] 07/08 12:55 Order name: Basic Metabolic Panel; Complete Time: 14:14 [facility] 07/08 12:55 Order name: CBC with Automated Diff; Complete Time: 14:03 [facility] 07/08 12:56 Order name: NT PRO-BNP; Complete Time: 14:14 [facility] 07/08 14:42 Order name: SARS-COV-2 RT PCR; Complete Time: 14:57 [facility] 07/08 15:51 Order name: Basic Metabolic Panel [facility] 07/08 15:51 Order name: Basic Metabolic Panel [facility] 07/08 15:51 Order name: CBC with Automated Diff [facility] 07/08 15:51 Order name: CBC with Automated Diff [facility] 07/08 15:51 Order name: Troponin I [facility] 07/08 12:54 Order name: XRAY CXR (1 view); Complete Time: 14:03 [facility] 07/08 12:54 Order name: EKG; Complete Time: 12:56 [facility] 07/08 12:54 Order name: Cardiac monitoring; Complete Time: 13:40 [facility] 07/08 12:54 Order name: EKG - Nurse/Tech; Complete Time: 14:25 [facility] 07/08 12:54 Order name: IV Saline Lock; Complete Time: 13:40 [facility] 07/08 15:51 Order name: Regular [facility] 07/08 15:51 Order name: EKG Electrocardiogram [facility] 07/08 15:51 Order name: EKG Electrocardiogram [facility] 07/08 15:51 Order name: EKG Electrocardiogram [facility] 07/08 15:51 Order name: EKG Electrocardiogram [facility] 07/08 15:51 Order name: Troponin I; Complete Time: 18:10 [facility] 07/08 15:51 Order name: Troponin I [facility] 07/08 12:54 Order name: Labs collected and sent; Complete Time: 13:40 [facility] 07/08 12:54 Order name: O2 Per Protocol; Complete Time: 13:40 [facility] 07/08 12:54 Order name: O2 Sat Monitoring; Complete Time: 13:40 [facility] Administered Medications: 14:05 Drug: Lasix 20 mg Route: IVP; Site: right antecubital; 14:41 Drug: Lovenox 80 mg Route: Sub-Q; Site: right lower abdomen; ah 14:42 Drug: Aspirin Chewable Tablet 324 mg Route: PO; ah 16:12 CANCELLED (n/a): Dilaudid 0.5 mg IVP once; RASS on ADMIN: Combtv4, Very Agttd3, Agttd2, ma2 Rstlss1, AlertClm0, Drwsy-1, Lt Sdtn-2, Mod Sdtn-3, Dp Sdtn-4, UnArsble-5 Disposition: 07/08/20 15:33 Hospitalization ordered by Glynn Jiménez for Inpatient Admission. Preliminary diagnosis are Non-ST elevation (NSTEMI) myocardial infarction, Acute systolic (congestive) heart failure. - Bed requested for Telemetry/MedSurg (Inpatient). - Status is Inpatient Admission. ea - Condition is Stable. - Problem is new. - Symptoms are unchanged. Signatures: Dispatcher [employer] [facility] Joan Castro RN RN Reena Lozada RN RN Fartun Villareal RN RN ea Alzahri, Mohammad, MD MD [facility] Kenna Rodriguez RN RN Corrections: (The following items were deleted from the chart) 13:39 12:56 CORONAVIRUS+MR.LAB.BRZ ordered. [facility] 15:32 15:32 07/08/2020 15:32 Discharged to Home. Impression: Atrial fibrillation and flutter; ma2 Chronic systolic (congestive) heart failure; Non-ST elevation (NSTEMI) myocardial infarction. Condition is Stable. Forms are Medication Reconciliation Form, Thank You Letter, Antibiotic Education, Prescription Opioid Use. Follow up: Private Physician; When: Tomorrow; Reason: Continuance of care. ms2 16:12 15:29 Dilaudid 0.5 mg IVP once; RASS on ADMIN: Combtv4, Very Agttd3, Agttd2, Rstlss1, ma2 AlertClm0, Drwsy-1, Lt Sdtn-2, Mod Sdtn-3, Dp Sdtn-4, UnArsble-5 ordered. [facility] 19:27 15:33 Hospitalization Ordered by Glynn Jiménez MD for Inpatient Admission. Preliminary mw diagnosis is Non-ST elevation (NSTEMI) myocardial infarction; Acute systolic (congestive) heart failure. Bed requested for Telemetry/MedSurg (Inpatient). Status is Inpatient Admission. Condition is Stable. Problem is new. Symptoms are unchanged. [facility] 20:08 19:27 07/08/2020 15:33 Hospitalization Ordered by Glynn Jiménez MD for Inpatient ea Admission. Preliminary diagnosis is Non-ST elevation (NSTEMI) myocardial infarction; Acute systolic (congestive) heart failure. Bed requested for Telemetry/MedSurg (Inpatient). Status is Inpatient Admission. Condition is Stable. Problem is new. Symptoms are unchanged. mw
--- NOTE | 2020-07-08 15:34 | ER ---
[facility] Name: Yash Mcnulty Age: 89 yrs Sex: Male : 1930 Arrival Date: 07/08/2020 Time: 12:52 Bed 17 Private MD: Diagnosis: Non-ST elevation (NSTEMI) myocardial infarction;Acute systolic (congestive) heart failure Presentation: 07/08 12:53 Chief complaint: EMS states: called for abd and chest swelling that began at unknown time. EMS states that said he has been seen before for these same complaints. Coronavirus screen: Client denies travel out of the [place] in the last 14 days. Client presents with at least one sign or symptom that may indicate coronavirus-19. Standard/surgical mask placed on the client. Ebola Screen: Patient denies exposure to infectious person. Patient denies travel to an Ebola-affected area in the 21 days before illness onset. Initial Sepsis Screen: Does the patient meet any 2 criteria? RR > 20 per min. Does the patient have a suspected source of infection? No. Patient's initial sepsis screen is negative. Risk Assessment: Do you want to hurt yourself or someone else? Patient reports no desire to harm self or others. Onset of symptoms is unknown. 12:53 Method Of Arrival: EMS: [facility] 12:53 Acuity: HAYDE 3 ss Historical: - Allergies: 12:57 No Known Allergies; ss - PMHx: 12:57 Atrial Fib; Dementia; CAD; Depression; High Cholesterol; Hypothyroidism; ss - Immunization history:: Adult Immunizations unknown. - Social history:: Smoking status: unknown. - Family history:: not pertinent. Screenin:19 Abuse screen: Denies threats or abuse. Nutritional screening: No deficits noted. Tuberculosis screening: No symptoms or risk factors identified. Fall Risk None identified. Assessment: 13:00 General: Appears in no apparent distress. Behavior is calm, cooperative. Pain: Denies pain. Neuro: Level of Consciousness is awake, obeys commands, confused, Oriented to. Cardiovascular: Heart tones S1 S2 present Capillary refill < 3 seconds Patient's skin is warm and dry. Pulses are palpable in right radial artery and left radial artery. Respiratory: Airway is patent Respiratory effort is even, unlabored, Respiratory pattern is regular, Parent/caregiver reports the patient having cough that is non-productive, dry. GI: Abdomen is distended, Bowel sounds present X 4 quads. Abd is non tender Patient currently denies nausea, vomiting. Derm: Skin is intact, Skin is dry. 14:00 Reassessment: Patient and/or family updated on plan of care and expected duration. Pain ah level reassessed. Patient is alert, oriented x 3, equal unlabored respirations, skin warm/dry/pink. at bedside, no needs voiced. 15:00 Reassessment: Patient and/or family updated on plan of care and expected duration. Pain ah level reassessed. at bedside, no needs voiced Patient denies pain at this time. 16:00 Reassessment: No changes from previously documented assessment. ah 17:30 Reassessment: at bedside assisting pt with dinner. ah 18:30 Reassessment: Patient and/or family updated on plan of care and expected duration. Pain ah level reassessed. Patient is alert, oriented x 3, equal unlabored respirations, skin warm/dry/pink. Awaiting on bed assignment. Pt/ informed. 19:20 Reassessment: Pt alert and oriented to self, respirations even and unlabored, chest ea expansions even and symmetrical. Awaiting on room assignment. 20:00 Reassessment: Patient and/or family updated on plan of care and expected duration. Pain ea level reassessed. Patient is alert, oriented x 3, equal unlabored respirations, skin warm/dry/pink. Report given to receiving nurse. Pt admitted to second floor, left ED via stretcher, per tech. Pt tolerating well. Vital Signs: 12:53 BP 121 / 72; Pulse 99; Resp 30; Temp 97.0(TE); Pulse Ox 91% on R/A; Pain 0/10; ss 13:30 BP 131 / 87; Pulse 98; Resp 25; Pulse Ox 97% ; ah 14:30 BP 127 / 90; Pulse 119; Resp 23; Pulse Ox 99% ; ah 15:30 BP 134 / 85; Pulse 114; Resp 27; Pulse Ox 95% ; ah 16:15 BP 134 / 85 LA (auto/reg); Pulse 101; Resp 22; Pulse Ox 98% on 2 lpm NC; jp3 17:30 BP 126 / 88; Pulse 99; Resp 17; Pulse Ox 98% ; ah 19:35 BP 122 / 79; Pulse 98; Resp 18; Temp 97.4; Pulse Ox 98% ; ea ED Course: 12:52 Patient arrived in ED. ds1 12:53 Annalisa Espinosa MD is Attending Physician. ma2 12:57 Triage completed. ss 12:57 Arm band placed on right wrist. ss 13:04 Kenna Rodriguez, RN is Primary Nurse. ah 13:20 XRAY CXR (1 view) In Process Unspecified. EDMS 13:30 Initial lab(s) drawn, by me, sent to lab. COVID swab sent to lab. Inserted saline lock: jp3 20 gauge in right antecubital area, using aseptic technique. Blood collected. Patient maintains SpO2 saturation greater than 95% on room air. 13:54 Bed in low position. Call light in reach. Side rails up X2. Warm blanket given. Verbal jp3 reassurance given. Diet:. personnel monitor on. Pulse ox on. NIBP on. 13:54 EKG done, by ED staff, reviewed by Annalisa Espinosa MD. jp3 15:33 Glynn Jiménez MD is Hospitalizing Provider. ma2 16:14 Repeat lab(s) drawn. by me, sent to lab. jp3 16:15 Troponin I Sent. jp3 19:07 Primary Nurse role handed off by Kenna Rodriguez, RN [facility] 19:20 Fartun Villareal, GLO is Primary Nurse. ea 19:33 No provider procedures requiring assistance completed. Patient admitted, IV remains in ea place. Administered Medications: 14:05 Drug: Lasix 20 mg Route: IVP; Site: right antecubital; ah 14:41 Drug: Lovenox 80 mg Route: Sub-Q; Site: right lower abdomen; ah 14:42 Drug: Aspirin Chewable Tablet 324 mg Route: PO; ah 16:12 CANCELLED (n/a): Dilaudid 0.5 mg IVP once; RASS on ADMIN: Combtv4, Very Agttd3, Agttd2, ma2 Rstlss1, AlertClm0, Drwsy-1, Lt Sdtn-2, Mod Sdtn-3, Dp Sdtn-4, UnArsble-5 Outcome: 15:32 Discharge ordered by . ma2 15:33 Decision to Hospitalize by Provider. ma2 19:33 Condition: stable ea 19:33 Instructed on the need for admit. 20:08 Patient left the ED. ea Signatures: Dispatcher [employer] Yvonne Black1 Reena Lozada, RN RN Fartun Dong RN RN Annalisa Javier MD MD ma2 Garland Aguilera 2 Douglas Quevedo 3 Kenna Rodriguez RN RN
[2020-07-08] MEDS ORDERED: FUROSEMIDE 20 MG/ 2ML VIAL IV SCH (17:00)
[2020-07-08] MEDS: AMOX/K CLAV 875 MG TAB PO SCH (21:47)
[2020-07-08] MEDS ORDERED: POTASSIUM 25 MEQ EFFERV TAB PO ONE (23:30)
[2020-07-09] MEDS: FUROSEMIDE 20 MG/ 2ML VIAL IV SCH ×3 (00:16→17:30)
[2020-07-09 00:50] VITALS: BMI 22.5
[2020-07-09 04:55] LABS: Absolute Lymphocytes (CBC) 0.7 K/uL (0.7-4.9); Hematocrit 27.1 % (39.6-49.0); Lymphocytes % 14.3 % (15.3-44.8); MPV 10.1 fL (7.6-11.3); RBC Red Blood Cell Count 3.09 M/uL (4.33-5.43)
[2020-07-09 05:07] LABS: Magnesium 2.5 mg/dL (1.8-2.4); Potassium 3.8 mmol/L (3.5-5.1)
[2020-07-09] MEDS ORDERED: DOCUSATE NA/SENNA CONC 1 TAB PO PRN (07:05)
--- NOTE | 2020-07-09 08:19 | EKG ---
Test Date: 2020-07-08 Test Time: 13:48:05 Business Law Professor: JOSE MEASUREMENT RESULTS: Intervals: Rate: 83 TN: QRSD: 86 QT: 382 QTc: 448 [place]: P: TN: QRS: 30 T: 66 INTERPRETIVE STATEMENTS: Atrial fibrillation Nonspecific ST abnormality Abnormal ECG Compared to ECG 07/01/2020 11:19:49 Left-axis deviation no longer present Incomplete right bundle-branch block no longer present ST (T wave) deviation still present Electronically Signed On 07-09-20 08:17:42 EXCEL EXPERT by Jose Dawkins
[2020-07-09] MEDS: ASPIRIN EC 81 MG TAB PO SCH (08:38)
[2020-07-09] MEDS: AMOX/K CLAV 875 MG TAB PO SCH ×2 (08:38→21:02)
[2020-07-09] MEDS: ENOXAPARIN 100 MG/ML SYR SQ SCH (08:39)
[2020-07-09] MEDS ORDERED: POTASSIUM CL SA 10 MEQ TAB PO ONE (09:00)
[2020-07-09] MEDS: MULTIVIT W/ MINERAL TAB PO SCH (09:42)
[2020-07-09] MEDS: METOPROLOL TAR 25 MG TAB PO SCH ×2 (09:42→21:02)
[2020-07-09] MEDS: OCUVITE (VIT A,C & E/LUTEIN/MINERAL) TABLET PO SCH (09:42)
[2020-07-09] MEDS: CYANOCOBALAMIN 1,000 MCG TAB PO SCH (09:42)
[2020-07-09] MEDS: NAMENDA 28 MG PO SCH (11:00)
[2020-07-09] MEDS: GALANTAMINE 24 MG PO SCH ×2 (11:00→21:00)
--- NOTE | 2020-07-09 13:58 | ECHO ---
HEIGHT: 6 ft 0 in WEIGHT: 158 lb 4.8 oz DATE OF STUDY: 07/09/[address]: Glynn Jiménez MD 2-DIMENSIONAL: YES M.MODE: YES DOPPLER: YES COLOR FLOW: YES TDS: PORTABLE: DEFINITY: BUBBLE STUDY: DIAGNOSIS: CONGESTIVE HEART FAILURE CARDIAC HISTORY: CATHERIZATION: SURGERY: PROSTHETIC VALVE: PACEMAKER: MEASUREMENTS (cm) DIASTOLIC (NORMALS) SYSTOLIC (NORMALS) IVSd 1.4 (0.6-1.2) LA Diam (1.9-4.0) LVEF 55% LVIDd 4.0 (3.5-5.7) LVIDs 2.9 (2.0-3.5) %FS 28% LVPWd 1.5 (0.6-1.2) Ao Diam 2.8 (2.0-3.7) 2 DIMENSIONAL ASSESSMENT: RIGHT ATRIUM: ENLARGED LEFT ATRIUM: ENLARGED RIGHT VENTRICLE: NORMAL LEFT VENTRICLE: MILD LEFT VENTRICULAR HYPERTROPHY TRICUSPID VALVE: MODERATE TRICUSPID REGURGITATION MITRAL VALVE: MODERATE MITRAL REGURGITATION PULMONIC VALVE: MILD PULMONIC INSUFFIENCY AORTIC VALVE: MODERATE AORTIC INSUFFIENCY PERICARDIAL EFFUSION: TRACE. PLEURAL EFFUSION IS PRESENT AORTIC ROOT: NORMAL LEFT VENTRICULAR WALL MOTION: NORMAL DOPPLER/COLOR FLOW: SEE BELOW COMMENTS: NORMAL LEFT VENTRICULAR EJECTION FRACTION 55-60% WITH NORAML WALL MOTION. DIASTOLIC DYSFUNCTION. 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 BIATRIAL ENLARGEMENT. MODERATE TRICUSPID REGURGITATION. MILD AORTIC INSUFFIENCY. MILD MITRAL REGURGITATION. PLEURAL EFFUSION IS PRESENT. TECHNOLOGIST: BIPIN EHARD
--- NOTE | 2020-07-09 17:44 | CON ---
Date of Consultation: 07/08/2020 Reason For Consultation: The patient was admitted on 07/08/[address] Jiménez's service with congestiv e heart failure and abdominal swelling. History Of Present Illness: He is an 89-year-old. I saw him on 07/08/2020. He has a history of chr onic atrial fibrillation, dementia, coronary artery disease, depression, hypothyroidism, and dyslipid emia. Was recently in the hospital for hematuria, anemia, and pleural effusion, and was just dischar ged on 07/06/2020, came back on 07/08/2020 with abdominal swelling, shortness of breath, PND, orthopn ea. No pedal edema. No palpitation. No syncope. No fever. No chills. Chest x-ray revealed mild CHF. His creatinine is 1.44, hemoglobin is 9.0. His troponin was elevated at . His BNP w as 12,288. EKG showed atrial fibrillation with rapid ventricular response. Past Medical History: As stated above. Allergies: NONE. Review of Systems: Negative. Social History: Negative. Family History: Noncontributory. Medications: At home include Lasix, metoprolol, Xarelto, Pravachol, and Synthroid. Physical Examination: General: He appeared to be in mild respiratory distress, more fatigued and somnolent. Vital Signs: Stable. He was afebrile. He was in AFib at a rate of 90. HEENT: Negative. Neck: Supple with no bruit, JVD, thyromegaly, or lymphadenopathy. Chest: Revealed some rales at the bases. Cardiac: Revealed atrial fibrillation. Abdomen: Appeared to be slightly swollen, possible ascites. Extremities: Revealed no edema, clubbing, or cyanosis. Skin: Dry and intact. Neurologic: He was somnolent, but alert and oriented x3. His pulses were present distally bilateral ly. Diagnostic Data: As stated earlier. Impression And Plan: 1.Acute on chronic systolic congestive heart failure exacerbation. 2.Elevated troponin secondary to congestive heart failure, elevated BNP secondary to congestive hear t failure and renal insufficiency. 3.Renal insufficiency, stage III. 4.Anemia. 5.Hematuria. He is on Lovenox now. 6.History of coronary artery disease, stable. 7.History of dementia and depression. 8.History of hypothyroidism. I agree with resuming his home medication. I agree with IV Lasix. We will consider Aldactone depending what his echocardiogram shows. We will see what his renal functio n does. I will continue to follow him along. EZEKIEL/BLAISE Voice ID: [id number] Report ID: [id number]
--- NOTE | 2020-07-09 17:50 | PN ---
Date of Progress Note: 07/09/2020 Subjective: Mr. Mcnulty was admitted on 07/08/2020 with congestive heart failure, abdominal swelling . He has chronic atrial fibrillation, dementia, CAD, depression, dyslipidemia, and hypothyroidism. Overnight, he is diuresed significantly. He is feeling better. He is not having any problem breathi ng. His chest did not reveal any rale today. He is still in atrial fibrillation, rate of 78. He has no edema. Diagnostic Data: Still pending blood count in the morning. Echocardiogram is still pending. We deena l continue IV Lasix and continue Lovenox. We will put him back on the Xarelto when he is ready to go home. We will continue to follow his creatinine, weight, I's and O's. We will make further decisio ns after the echocardiogram is done. He may be a good candidate for Aldactone depending what the eje ction fraction shows. EZEKIEL/BLAISE Voice ID: [id number] Report ID: [id number]
[2020-07-09] MEDS: ATORVASTATIN 10 MG TAB PO SCH (21:02)
[2020-07-10] MEDS: FUROSEMIDE 20 MG/ 2ML VIAL IV SCH ×3 (01:01→17:07)
[2020-07-10] MEDS: LEVOTHYROXINE SOD 0.075 MG TAB PO SCH (05:23)
[2020-07-10 05:34] LABS: Potassium 3.9 mmol/L (3.5-5.1)
[2020-07-10] MEDS ORDERED: POTASSIUM CL SA 10 MEQ TAB PO ONE (09:00)
[2020-07-10] MEDS: METOPROLOL TAR 25 MG TAB PO SCH ×2 (09:54→21:08)
[2020-07-10] MEDS: CYANOCOBALAMIN 1,000 MCG TAB PO SCH (09:54)
[2020-07-10] MEDS: ASPIRIN EC 81 MG TAB PO SCH (09:55)
[2020-07-10] MEDS: GALANTAMINE 24 MG PO SCH ×2 (09:55→21:08)
[2020-07-10] MEDS: OCUVITE (VIT A,C & E/LUTEIN/MINERAL) TABLET PO SCH (09:55)
[2020-07-10] MEDS: MULTIVIT W/ MINERAL TAB PO SCH (09:55)
[2020-07-10] MEDS: AMOX/K CLAV 875 MG TAB PO SCH ×2 (09:55→21:07)
[2020-07-10] MEDS: ENOXAPARIN 100 MG/ML SYR SQ SCH (09:57)
[2020-07-10] MEDS: NAMENDA 28 MG PO SCH (09:57)
[2020-07-10] MEDS: ATORVASTATIN 10 MG TAB PO SCH (21:07)
[2020-07-11] MEDS: FUROSEMIDE 20 MG/ 2ML VIAL IV SCH ×2 (00:17→08:40)
[2020-07-11] MEDS: LEVOTHYROXINE SOD 0.075 MG TAB PO SCH (05:14)
--- NOTE | 2020-07-11 05:30 | HP ---
Date of Admission: 07/09/2020 Chief Complaint: Swelling and shortness of breath. History Of Present Illness: This is an 89-year-old male patient, who was brought into emergency room with complaints of swelling of his upper extremities, abdominal wall swelling, some bloating of abdomen and shortness of breath associated with this. The patient was brought into ER after he was evaluated. He was admitted to the hospital with congestive heart failure. He takes furosemide at home and recently the dose was increased from 40 mg 2 times a day to 60 mg 2 times a day. The patient has been taking medications as prescribed. Allergies: NO KNOWN ALLERGIES. Medications: List reviewed. Review of Systems: Cardiovascular: As mentioned above. All other systems reviewed and negative. Past Medical History: Significant for hypothyroidism, hypertension, hyperlipidemia, chronic systolic congestive heart failure, chronic atrial fibrillation on anticoagulation therapy, constipation, diverticulosis, chronic kidney disease, and anemia. Past Surgical History: Significant for cataract surgery, lumpectomy for benign left breast mass, hernia surgery, TURP, back surgery, hip surgery which was right hip replacement secondary to fracture, and right leg surgery. Social History: Negative for smoking and alcohol use. Family History: Father had myocardial infarction and hypertension. Mother had diabetes and stroke. Brother had carotid artery stenosis. Sister had stroke. Physical Examination: Vital Signs: Temperature 97.5, pulse 86, respiratory rate 24, blood pressure 125/71, oxygen saturation 99% on 2 L nasal cannula oxygen. Height 6 feet, weight 158 pounds. General: Awake, alert, oriented, not in distress. HEENT: Head atraumatic, normocephalic. Conjunctivae nonerythematous. Sclerae white. Mouth, no thrush or edema noted. Ears/Nose, no mass, lesion, discharge noted. Neck: Supple. No JVD, lymph nodes, bruit, thyromegaly noted. Lungs: Diminished air entry with presence of rales in lower lung farrar, more on right side than the left side. The patient not using any accessory muscles of respiration. Heart: Normal heart sounds, no murmur or gallop. Abdomen: Soft, bowel sounds normal. No guarding, rigidity, tenderness, mass, hepatosplenomegaly, distention, or bruit noted. Extremities: No leg edema. No calf tenderness. Skin: No rash, ulcer, cellulitis. Lymphatics: No lymph node enlargement in neck, supraclavicular, infraclavicular region. Neuro: No focal neurological deficit. Chest: Unremarkable. External Genitalia: Deferred. Rectal: Deferred. Laboratory Data: White count 6.50 with hemoglobin 10.3, and platelets 213, this was done on 07/08/2020. This morning white count 4.8, hemoglobin 9, platelets 176. Chemistry yesterday; sodium 144, potassium 3.7, chloride 111, bicarb 26, BUN 23, creatinine 1.55, glucose 98. Troponin 0.52 on the first set, second set 0.52, and third set 0.46. This morning sodium 145, potassium 3.8, chloride 112, bicarb 27, BUN 20, creatinine 1.40, glucose was 81. Chest x-ray shows changes of congestive heart failure with pleural effusion and COVID-19 test negative. Impression: 1. Congestive heart failure, chronic, systolic, with acute exacerbation. 2. Anemia, chronic, unspecified. 3. Chronic kidney disease, stage 3A. 4. Chronic atrial fibrillation. 5. Chronic anticoagulation therapy. 6. Hypertension. 7. Hyperlipidemia. 8. Hypothyroidism. 9. Diverticulosis. Plan: Admit patient to hospital for further evaluation and management of this problem. The patient is appropriate for inpatient and is expected to spend 2 midnights in hospital. We will consult Cardiology, get echo with Doppler. Start the patient on IV Lasix per order. Monitor intake, output, daily weight, electrolytes and renal function monitoring with blood work. Home medications will be continued per order. We will consult Physical therapy to help ambulate the patient. Details and plan of treatment discussed with the patient and the patient's who was at bedside with him. CARMINE/MODL Voice ID: [id number] MTDD
[2020-07-11 06:13] LABS: Potassium 3.7 mmol/L (3.5-5.1)
[2020-07-11] MEDS: GALANTAMINE 24 MG PO SCH (08:39)
[2020-07-11] MEDS: ASPIRIN EC 81 MG TAB PO SCH (08:39)
[2020-07-11] MEDS: CYANOCOBALAMIN 1,000 MCG TAB PO SCH (08:39)
[2020-07-11] MEDS: AMOX/K CLAV 875 MG TAB PO SCH (08:39)
[2020-07-11] MEDS: MULTIVIT W/ MINERAL TAB PO SCH (08:39)
[2020-07-11] MEDS: METOPROLOL TAR 25 MG TAB PO SCH (08:39)
[2020-07-11] MEDS: OCUVITE (VIT A,C & E/LUTEIN/MINERAL) TABLET PO SCH (08:39)
[2020-07-11] MEDS: NAMENDA 28 MG PO SCH (08:39)
[2020-07-11] MEDS ORDERED: ENOXAPARIN 80 MG/0.8 ML SQ SCH (09:00)
[2020-07-11] MEDS ORDERED: POTASSIUM CL SA 10 MEQ TAB PO ONE (09:00)
[2020-07-11 09:48] VITALS: BP 146/84; TEMP 97.8
[2020-07-11 19:39] VITALS: O2SAT 94
--- NOTE | 2020-07-14 22:01 | PN ---
Date of Progress Note: 07/10/2020 Mr. Mcnulty was admitted with acute on chronic systolic congestive heart failure exacerbation, elevat ed troponin, renal insufficiency stage 3, anemia, hematuria. He has a history of mild coronary arter y disease. He has a history of depression and dementia as well as hypothyroidism. He did improve wi th IV Lasix. Echocardiogram showed an ejection fraction of 55%, left ventricular hypertrophy, modera te aortic insufficiency, moderate mitral regurgitation. He had a trace pleural effusion. Slight rig ht atrial enlargement. His main problem was severe pulmonary hypertension with a right ventricular s ystolic pressure of more than 60 mmHg. I will discuss the case further with Dr. Jiménez. For now, he i s on aspirin, Lipitor, Lasix, metoprolol. Considering his pulmonary hypertension, he may tolerate a low-dose calcium channel baldo. We will see him in the office in the next 2 weeks. EZEKIEL/BLAISE Voice ID: [id number] Report ID: [id number]
--- NOTE | 2020-07-28 19:40 | PN ---
Date of Progress Note: 07/10/2020 Subjective: The patient was seen for followup in the morning. No new complaints or problems reporte d by the patient and his , who was present with him at bedside. Objective: Vital Signs: Reviewed. HEENT: Unremarkable. Lungs: Clear to auscultation. Heart: Sounds normal. Abdomen: Soft. Bowel sounds normal. No guarding, rigidity, tenderness, or distention. Extremities: No leg edema. Laboratory Data: Sodium 145, potassium 3.9, chloride 110, bicarb 29, BUN 22, creatinine 1.56, glucos e 90. Impression: 1.Congestive heart failure, chronic, systolic, with acute exacerbation. 2.Chronic atrial fibrillation. 3.Chronic kidney disease, stage 3A. 4.Anemia, chronic, unspecified. 5.Chronic anticoagulation therapy. Plan: We will go ahead and continue current medication. Continue current diuretic therapy. Monitor the patient's blood work tomorrow morning. Details and plan of treatment discussed with the patient and the patient's . I will see him tomorrow and possible discharge to go home tomorrow dependin g on his condition. CARMINE/MODL Voice ID: [id number] Report ID: [id number]
--- NOTE | 2020-07-28 20:10 | DS ---
Date of Discharge: 07/11/2020 Disposition: Discharged to go home. Physical Examination: HEENT: Unremarkable. Lungs: Clear to auscultation. Heart: Sounds normal. Abdomen: Soft. Bowel sounds normal. No guarding, rigidity, tenderness, or distention. Extremities: No leg edema. Discharge Medications And Instructions: 1.Follow up at my office next week on Thursday or Thursday. 2.The patient to continue all prior home medication except stop taking Xarelto 20 mg and start takin g Xarelto 15 mg daily with evening meal. Labs And Investigation Done During This Hospitalization: Chest x-ray had shown the changes of conges tive heart failure. Echocardiogram done during this hospitalization shows ejection fraction of 55%, diastolic dysfunction, severe pulmonary hypertension, moderate tricuspid regurgitation, mild aortic r egurgitation, and mild mitral regurgitation. Hospital Course: This is an 89-year-old male patient admitted to the hospital with swelling and shor tness of breath. Please see dictated H and P for more information. After the patient was evaluated in the emergency room, he was admitted to the hospital and he was treated with IV Lasix for this stoney estive heart failure problem. Electrolytes and renal function were monitored. Cardiology consultati on was obtained from Dr. Dawkins. His initial sodium was 144, potassium 3.7, chloride 111, bicarb 26 , BUN 23, creatinine 1.55, glucose 98. First troponin 0.52, second troponin 0.52, third troponin 0.4 6. Last chemistry showed sodium 145, potassium 3.7, chloride 109, bicarb 29, BUN 23, creatinine 1.66 , glucose 105. Last CBC showed white count 4.8, hemoglobin 9, platelets 176. Overall, the patient's condition improved and was discharged to go home in stable condition with above-mentioned medication s and instructions. Final Diagnoses: 1.Congestive heart failure, chronic, systolic, with acute exacerbation. 2.Anemia, chronic, unspecified. 3.Chronic kidney disease stage 3A. 4.Chronic atrial fibrillation. 5.Chronic anticoagulation therapy. 6.Hypertension. 7.Hyperlipidemia. 8.Hypothyroidism. 9.Diverticulosis. CARMINE/MODL Voice ID: [id number] Report ID: [id number]
== END 2020-07-11 09:54 | disposition home health service (06) | DRG 291 ==
LOC: ER 12:37 → ERHOLD 16:04 → 2ND 20:00
PROVIDERS: ADMIT Internal Medicine; ATTEND Internal Medicine
DX: I13.0 Hypertensive heart and chronic kidney disease with heart failure and stage 1 through stage 4 chronic kidney disease, or unspecified chronic kidney disease (principal); I50.23 Acute on chronic systolic (congestive) heart failure; I48.20 Chronic atrial fibrillation, unspecified; N18.31 Chronic kidney disease, stage 3a; I25.10 Atherosclerotic heart disease of native coronary artery without angina pectoris; E78.5 Hyperlipidemia, unspecified; K57.90 Diverticulosis of intestine, part unspecified, without perforation or abscess without bleeding; E03.9 Hypothyroidism, unspecified; D64.9 Anemia, unspecified; R31.9 Hematuria, unspecified; Z79.01 Long term (current) use of anticoagulants; Z96.641 Presence of right artificial hip joint; Z20.822 Contact with and (suspected) exposure to COVID-19
CPT/HCPCS: 36415; 71045; 80048; 83735; 83880; 84484; 85025; 93005; 93306; 96372; 96374; 97116; 97161; 97530; 99285; J1650; J1940; U0003